=== PATIENT | male | born 1975 | race Caucasian/White ===

== ENCOUNTER 2016-10-07 16:20 | Emergency (ER) | payer OTHER ==
[2016-10-07 16:42] VITALS: BP 137/79; PULSE 90; RESP 18; TEMP 99.2
[2016-10-07] MEDS ORDERED: PENICILLIN V POTASSIUM 250 MG TAB PO STA (16:52)
[2016-10-07] MEDS ORDERED: HYDROcodone/APAP 5-325MG 1 EACH TAB PO STA (16:52)
--- NOTE | 2016-10-07 16:56 | ED ---
ENT HPI - General Chief complaint: Dental/Oral Stated complaint: Dental Pain Time Seen by Provider: 10/07/16 16:46 Source: patient Mode of arrival: ambulatory Limitations: no limitations - History of Present Illness Initial comments: Patient is a 41-year-old male presenting to the emergency department with complaints of tooth pain to tooth #124 days. Patient states he has a history of a fractured tooth and was treated with ibuprofen and amoxicillin approximately 6 months ago and the pain went away and he didn't to the dentist. Patient states that the same tooth pain returned 4 days ago. Patient states he has tried Motrin 800 without relief. Patient states that pain is radiating up to his left ear. Denies chills, fevers, nausea, vomiting, shortness of breath, chest pain, abdominal pain. Patient denies trismus. MD complaint: tooth pain Severity scale (1-10): 8 Quality: sharp Consistency: constant Improves with: none Worsens with: eating Context- Dental: other (History of same) - Related Data Previous Rx's Medication Instructions Recorded Cephalexin [Keflex] 500 mg PO Q6HR #28 cap 10/07/16 HYDROcodone/APAP 5-325MG [[place] 1 tab PO Q4HR PRN #12 tab 10/07/16 5-325] Allergies Allergy/AdvReac Type Severity Reaction Status Date / Time No Known Allergies Allergy Verified 10/07/16 16:42 Review of Systems ROS Statement: Those systems with pertinent positive or pertinent negative responses have been documented in the HPI. ROS Other: All systems not noted in ROS Statement are negative. Past Medical History Past Medical History: No Reported History History of Any Multi-Drug Resistant Organisms: None Reported Past Surgical History: No Surgical Hx Reported Past Psychological History: No Psychological Hx Reported Smoking Status: Current every day smoker Past Alcohol Use History: Occasional Past Drug Use History: None Reported General Exam Limitations: no limitations General appearance: alert, in no apparent distress Head exam: Present: atraumatic, normocephalic, normal inspection Eye exam: Present: normal appearance, PERRL, EOMI. Absent: scleral icterus, conjunctival injection, periorbital swelling ENT exam: Present: normal exam, normal oropharynx, mucous membranes moist, TM's normal bilaterally, normal external ear exam Expanded Mouth exam: Present: normal external inspection, tongue normal. Absent: drooling, trismus Teeth exam: Present: fractured tooth # (12), dental tenderness # (12). Absent: gingival enlargement Throat exam: normal inspection. negative: tonsillar erythema, tonsillomegaly, tonsillar exudate, R peritonsillar mass, L peritonsillar mass Neck exam: Present: normal inspection, full ROM. Absent: tenderness, lymphadenopathy Respiratory exam: Present: normal lung sounds bilaterally. Absent: respiratory distress, wheezes, rales, rhonchi, stridor Cardiovascular Exam: Present: regular rate, normal rhythm, normal heart sounds. Absent: systolic murmur, diastolic murmur, rubs, gallop, clicks GI/Abdominal exam: Present: soft, normal bowel sounds Neurological exam: Present: alert, oriented X3, CN II-XII intact Psychiatric exam: Present: normal affect, normal mood Skin exam: Present: warm, dry, intact, normal color Course Vital Signs 10/07/16 16:40 Temperature 99.2 F Pulse Rate 90 Respiratory 18 Rate Blood Pressure 137/79 O2 Sat by Pulse 98 Oximetry Medical Decision Making - Medical Decision Making Dental pain to tooth #12 with a history of fractured tooth. No evidence of obvious abscess at this time. Patient placed on antibiotics and given pain medicine. Patient instructed to follow-up with dentist. Patient agrees with treatment plan. Return parameters discharge instructions reviewed. Disposition Clinical Impression: Fracture of tooth, Toothache Disposition: HOME SELF-CARE Condition: Good Instructions: Toothache (ED) Additional Instructions: Finish antibiotics as prescribed. Continue Motrin and [place] for moderate to severe pain. May apply warm compresses for comfort. Follow-up with dentist upon returning to [place]. Please return to the emergency department if symptoms do not improve or get worse. Prescriptions: Cephalexin [Keflex] 500 mg PO Q6HR #28 cap HYDROcodone/APAP 5-325MG [[place] 5-325] 1 tab PO Q4HR PRN #12 tab PRN Reason: Pain Referrals: None,Stated [Primary Care Provider] - 1-2 days Time of Disposition: 16:55
== END 2016-10-07 17:15 | disposition home or self-care (01) ==
LOC: EC 16:20
DX: S02.5XXA Fracture of tooth (traumatic), initial encounter for closed fracture (principal); K08.89 Other specified disorders of teeth and supporting structures; F17.200 Nicotine dependence, unspecified, uncomplicated
CPT/HCPCS: 99282

== ENCOUNTER 2017-02-08 08:51 | Emergency (ER) | payer OTHER ==
[2017-02-08 09:04] VITALS: BP 117/90; PULSE 68; RESP 20; TEMP 99.5
[2017-02-08] MEDS ORDERED: KETOROLAC 60 MG/2 ML VIAL IM STA (09:15)
[2017-02-08] MEDS ORDERED: DIAZEPAM 5 MG TAB PO STA (09:15)
--- NOTE | 2017-02-08 09:20 | ED ---
General Adult HPI - General Chief complaint: Extremity Problem,Nontraumatic Stated complaint: back pain, poss sciatica Time Seen by Provider: 02/08/17 09:06 Source: patient, RN notes reviewed Mode of arrival: ambulatory Limitations: no limitations - History of Present Illness Initial comments: Patient is a 41-year-old male who presents emergency room today with a chief complaint of increased sciatic pain. He does admit that he's had similar symptoms in the past. He denies any injury or trauma. States his symptoms started yesterday morning when awakening. Does admit to a physical job but denies any injury or trauma. Patient does admit to pain that radiates down both right and left leg all the way down to his feet. He denies any bowel or bladder incontinence retention. Denies any saddle anesthesia. Patient does admit that he's had this pain in the past is had x-rays. States new to this area recently moved here from [place]. States he is trying follow-up with family doctor. Patient denies any recent fever, chills, shortness of breath, chest pain, abdominal pain, nausea or vomiting, dysuria or hematuria, constipation or diarrhea, headaches or visual changes, or any other complaints. - Related Data Previous Rx's Medication Instructions Recorded Cephalexin [Keflex] 500 mg PO Q6HR #28 cap 10/07/16 HYDROcodone/APAP 5-325MG [[place] 1 tab PO Q4HR PRN #12 tab 10/07/16 5-325] Cyclobenzaprine [Flexeril] 10 mg PO TID #20 tab 02/08/17 Dexamethasone 0.75 mg PO DIRECTED #12 tablet 02/08/17 Ibuprofen [Motrin] 800 mg PO Q8HR #30 tab 02/08/17 Allergies Allergy/AdvReac Type Severity Reaction Status Date / Time No Known Allergies Allergy Verified 10/07/16 16:42 Review of Systems ROS Statement: Those systems with pertinent positive or pertinent negative responses have been documented in the HPI. ROS Other: All systems not noted in ROS Statement are negative. Past Medical History Past Medical History: No Reported History Additional Past Medical History / Comment(s): sciatic nerve problem. back injury History of Any Multi-Drug Resistant Organisms: None Reported Past Surgical History: No Surgical Hx Reported Past Psychological History: No Psychological Hx Reported Smoking Status: Current every day smoker Past Alcohol Use History: Occasional Past Drug Use History: None Reported General Exam - General Exam Comments Initial Comments: General: The patient is awake and alert, in no distress, and does not appear acutely ill. Eye: Pupils are equal, round and reactive to light, extra-ocular movements are intact. No nystagmus. There is normal conjunctiva bilaterally. No signs of icterus. Ears, nose, mouth and throat: There are moist mucous membranes and no oral lesions. Neck: The neck is supple, there is no tenderness or JVD. Cardiovascular: There is a regular rate and rhythm. No murmur, rub or gallop is appreciated. Respiratory: Lungs are clear to auscultation, respirations are non-labored, breath sounds are equal. No wheezes, stridor, rales, or rhonchi. Gastrointestinal: Soft, non-distended, non-tender abdomen without masses or organomegaly noted. There is no rebound or guarding present. No CVA tenderness. Bowel sounds are unremarkable. Musculoskeletal: Full range of motion. Patient does have normal appearance thoracic or lumbar spine no step-offs forms appreciated. No tenderness midline. Mild tenderness over the SI joints bilaterally and paravertebrally in the lower lumbar spine. Strength 5/5. Sensation intact. Pulses equal bilaterally 2+. Neurological: A&O x 3. CN II-XII intact, There are no obvious motor or sensory deficits. Coordination appears grossly intact. Speech is normal. Skin: Skin is warm and dry and no rashes or lesions are noted. Psychiatric: Cooperative, appropriate mood & affect, normal judgment. Limitations: no limitations Course Vital Signs 02/08/17 09:02 Temperature 99.5 F Pulse Rate 68 Respiratory 20 Rate Blood Pressure 117/90 O2 Sat by Pulse 100 Oximetry Medical Decision Making - Medical Decision Making 41-year-old male presenting for bilateral sciatic pain. Importance of following up and having MRI were discussed with the patient. He has no bowel or bladder incontinence retention. He has no saddle anesthesia. Sinus symptoms of concern and for reason of return were discussed with patient. He' ll be started on anti-inflammatories given Toradol shot here in the emergency room also given Valium for muscle spasms. Patient will be discharged on continued muscle relaxer along with anti-inflammatories, and steroid Dosepak for his symptoms. Advised close follow-up family doctor over the next 2 days or return here to the emergency room if any symptoms increase or worsen or for any other concerns. Disposition Clinical Impression: Lumbar radiculopathy, acute Disposition: HOME SELF-CARE Condition: Good Instructions: Lumbar Radiculopathy (ED) Additional Instructions: Please follow-up the family doctor and discuss options of MRI. Please use medications as prescribed and be aware that muscle relaxant may make you drowsy. Please return to emergency room if any symptoms increase or worsen or for any other concerns. Prescriptions: Cyclobenzaprine [Flexeril] 10 mg PO TID #20 tab Dexamethasone 0.75 mg PO DIRECTED #12 tablet Ibuprofen [Motrin] 800 mg PO Q8HR #30 tab Referrals: None,Stated [Primary Care Provider] - 1-2 days Anisa Rodriguez MD [STAFF PHYSICIAN] - 1-2 days Kahlil Westbrook MD [REFERRING] - 1-2 days Time of Disposition: 09:18
== END 2017-02-08 09:39 | disposition home or self-care (01) ==
LOC: EC 08:51
DX: M54.16 Radiculopathy, lumbar region (principal); F17.200 Nicotine dependence, unspecified, uncomplicated
CPT/HCPCS: 99283; 96372; J1885

== ENCOUNTER → 2017-05-30 | Outpatient (CLI) | payer OTHER ==
--- NOTE | 2017-05-30 14:35 | XR ---
EXAMINATION TYPE: XR knee complete RT DATE OF EXAM: 05/30/2017 CLINICAL HISTORY: Pain and swelling from old injury. TECHNIQUE: Three views of the right knee are obtained on 4 images. COMPARISON: None. FINDINGS: There is no acute fracture/dislocation evident in right knee. Well-corticated defect is pr esent presumed from prior ACL surgical repair. Mild joint space loss medial and lateral tibiofemoral compartments is seen. No significant spurring is present. The overlying soft tissue appears unremark able. IMPRESSION: There is postsurgical change and mild degenerative changes as noted above.
== END | disposition home or self-care (01) ==
LOC: RADXRMAIN 13:34
PROVIDERS: ATTEND Internal Medicine
DX: M25.861 Other specified joint disorders, right knee (principal); M25.561 Pain in right knee

== ENCOUNTER 2017-12-29 06:13 | Emergency (ER) | payer OTHER ==
[2017-12-29 06:18] VITALS: BP 132/85; PULSE 60; RESP 18; TEMP 98.1
[2017-12-29] MEDS ORDERED: KETOROLAC 60 MG/2 ML VIAL IM STA (06:20)
--- NOTE | 2017-12-29 06:22 | ED ---
General Adult HPI - General Chief complaint: Fall Stated complaint: Fall Time Seen by Provider: 12/29/17 06:15 Source: EMS, RN notes reviewed Mode of arrival: EMS Limitations: no limitations - History of Present Illness Initial comments: This is a 42-year-old male who presents in status to the emergency department complaining of left-sided rib pain. Patient states she got up and walked outside and slipped on the ice and fell onto the cement on the left side of his ribs. Patient denies any difficulty breathing or shortness of breath. Patient states it hurts take a deep breath however and hurts to touch or move his thorax. Patient denies any head injury patient denies any neck pain patient denies any numbness weakness. Patient denies any back pain. Patient denies any extremity injury. Patient denies any other pain at this time. His any cut or abrasion. - Related Data Previous Rx's Medication Instructions Recorded Cyclobenzaprine [Flexeril] 10 mg PO TID #20 tab 02/08/17 Dexamethasone 0.75 mg PO DIRECTED #12 tablet 02/08/17 Ibuprofen [Motrin] 800 mg PO Q8HR #30 tab 02/08/17 Njvb-Sjjt-Vtb 6.25-5-10Mg/5Ml 5 ml PO TID #100 ml 06/10/17 [Phenergan VC with Codeine] methylPREDNISolone Dose Pack 4 mg PO DIRECTED #21 package 06/10/17 [Medrol Dose Pack] Hydrocodone/Acetaminophen [[place] 1 each PO Q4HR PRN #10 tab 12/29/17 5-325] Ibuprofen [Motrin] 600 mg PO Q6HR PRN #20 tab 12/29/17 Allergies Allergy/AdvReac Type Severity Reaction Status Date / Time No Known Allergies Allergy Verified 12/29/17 06:18 Review of Systems ROS Statement: Those systems with pertinent positive or pertinent negative responses have been documented in the HPI. ROS Other: All systems not noted in ROS Statement are negative. Past Medical History Past Medical History: No Reported History Additional Past Medical History / Comment(s): sciatic nerve problem. back injury History of Any Multi-Drug Resistant Organisms: None Reported Past Surgical History: No Surgical Hx Reported Past Psychological History: PTSD Smoking Status: Current every day smoker Past Alcohol Use History: Occasional Past Drug Use History: Marijuana General Exam - General Exam Comments Initial Comments: GENERAL: Patient is well-developed and well-nourished. Patient is nontoxic and well- hydrated and is in mild distress. ENT: Neck is soft and supple. No significant lymphadenopathy is noted. Oropharynx is clear. Moist mucous membranes. Neck has full range of motion without eliciting any pain. EYES: The sclera were anicteric and conjunctiva were pink and moist. Extraocular movements were intact and pupils were equal round and reactive to light. Eyelids were unremarkable. PULMONARY: Unlabored respirations. Good breath sounds bilaterally. No audible rales rhonchi or wheezing was noted. CARDIOVASCULAR: There is a regular rate and rhythm without any murmurs gallops or rubs. Patient has left lateral rib pain. ABDOMEN: Soft and nontender with normal bowel sounds. SKIN: Skin is clear with no lesions or rashes and otherwise unremarkable. NEUROLOGIC: Patient is alert and oriented x3. Cranial nerves II through XII are grossly intact. Motor and sensory are also intact. Normal speech, volume and content. Symmetrical smile. MUSCULOSKELETAL: Normal extremities with adequate strength and full range of motion. LYMPHATICS: No significant lymphadenopathy is noted PSYCHIATRIC: Normal psychiatric evaluation. Limitations: no limitations Course Vital Signs 12/29/17 06:14 Temperature 98.1 F Pulse Rate 60 Respiratory 18 Rate Blood Pressure 132/85 O2 Sat by Pulse 100 Oximetry Medical Decision Making - Medical Decision Making Chest x-ray shows no acute abnormality. Disposition Clinical Impression: Chest wall contusion Disposition: HOME SELF-CARE Instructions: Contusion in Adults (ED) Prescriptions: Hydrocodone/Acetaminophen [[place] 5-325] 1 each PO Q4HR PRN #10 tab PRN Reason: Pain Ibuprofen [Motrin] 600 mg PO Q6HR PRN #20 tab PRN Reason: For pain Referrals: Kahlil Westbrook MD [Primary Care Provider] - 1-2 days Time of Disposition: 06:54
--- NOTE | 2017-12-29 06:47 | XR ---
EXAMINATION TYPE: XR chest 2V DATE OF EXAM: 12/29/2017 HISTORY: Difficulty breathing . REFERENCE: Previous study dated 06/10/2017. FINDINGS: The lungs remain clear. Pleural spaces are clear. The heart is not enlarged. IMPRESSION: NORMAL CHEST.
== END 2017-12-29 07:01 | disposition home or self-care (01) ==
LOC: EC 06:13
DX: S20.212A Contusion of left front wall of thorax, initial encounter (principal); F17.200 Nicotine dependence, unspecified, uncomplicated; W00.0XXA Fall on same level due to ice and snow, initial encounter; Y92.009 Unspecified place in unspecified non-institutional (private) residence as the place of occurrence of the external cause
CPT/HCPCS: 71046; 99283; J1885

== ENCOUNTER 2017-12-30 16:59 | Emergency (ER) | payer OTHER ==
[2017-12-30 18:12] VITALS: BP 128/84; PULSE 53; RESP 18; TEMP 98.5
--- NOTE | 2017-12-30 18:29 | ED ---
General Adult HPI - General Chief complaint: Extremity Injury, Upper Stated complaint: Rib and chest pain fell yesterday Time Seen by Provider: 12/30/17 18:15 Source: patient, RN notes reviewed Mode of arrival: ambulatory Limitations: no limitations - History of Present Illness Initial comments: Patient 42-year-old male presenting to the emergency room today with a chief complaint of a subtle rib pain. He does admit to a slow fall yesterday. He states he fell down onto a step" underneath the left side of his chest. Patient states locally tender this area worse with certain movements. He doesn' t that he's had some cough some congestion as well. Patient states was seen here in the hospital yesterday had an x-ray and was told nothing was broken. Patient states he was given [place] for pain which she has been using with little relief the symptoms. Denies any complaints or associated symptoms at this time. - Related Data Previous Rx's Medication Instructions Recorded Cyclobenzaprine [Flexeril] 10 mg PO TID #20 tab 02/08/17 Dexamethasone 0.75 mg PO DIRECTED #12 tablet 02/08/17 Ibuprofen [Motrin] 800 mg PO Q8HR #30 tab 02/08/17 Euev-Hnsl-Isr 6.25-5-10Mg/5Ml 5 ml PO TID #100 ml 06/10/17 [Phenergan VC with Codeine] methylPREDNISolone Dose Pack 4 mg PO DIRECTED #21 package 06/10/17 [Medrol Dose Pack] Hydrocodone/Acetaminophen [[place] 1 each PO Q4HR PRN #10 tab 12/29/17 5-325] Ibuprofen [Motrin] 600 mg PO Q6HR PRN #20 tab 12/29/17 Benzonatate [Tessalon Perles] 100 mg PO TID PRN #20 capsule 12/30/17 traMADol HCl [Ultram] 1 tab PO Q4-6H PRN #15 tab 12/30/17 Allergies Allergy/AdvReac Type Severity Reaction Status Date / Time No Known Allergies Allergy Verified 12/30/17 18:12 Review of Systems ROS Statement: Those systems with pertinent positive or pertinent negative responses have been documented in the HPI. ROS Other: All systems not noted in ROS Statement are negative. Past Medical History Past Medical History: No Reported History Additional Past Medical History / Comment(s): sciatic nerve problem. back injury History of Any Multi-Drug Resistant Organisms: None Reported Past Surgical History: No Surgical Hx Reported Past Psychological History: PTSD Smoking Status: Current every day smoker Past Alcohol Use History: Occasional Past Drug Use History: Marijuana General Exam - General Exam Comments Initial Comments: General: The patient is awake and alert, in no distress, and does not appear acutely ill. Eye: Pupils are equal, round and reactive to light, extra-ocular movements are intact. No nystagmus. There is normal conjunctiva bilaterally. No signs of icterus. Ears, nose, mouth and throat: There are moist mucous membranes and no oral lesions. Neck: The neck is supple, there is no tenderness or JVD. Cardiovascular: There is a regular rate and rhythm. No murmur, rub or gallop is appreciated. Patient's pain is reproduced on palpation to the left lateral lower ribs. Respiratory: Lungs are clear to auscultation, respirations are non-labored, breath sounds are equal. No wheezes, stridor, rales, or rhonchi. Musculoskeletal: Patient does have chest wall tenderness to the left side. Tender to palpation over the left anterior lateral ribs. 5/5. Sensation intact. Pulses equal bilaterally 2+. Neurological: A&O x 3. CN II-XII intact, There are no obvious motor or sensory deficits. Coordination appears grossly intact. Speech is normal. Skin: Skin is warm and dry and no rashes or lesions are noted. Psychiatric: Cooperative, appropriate mood & affect, normal judgment. Limitations: no limitations Course Vital Signs 12/30/17 18:10 Temperature 98.5 F Pulse Rate 53 L Respiratory 18 Rate Blood Pressure 128/84 O2 Sat by Pulse 99 Oximetry Medical Decision Making - Medical Decision Making Patient's x-rays negative for any acute abnormality. Patient's pain is reproduced on palpation to the anterior lateral left lower ribs. No step-off or deformity. Patient does admit that he was given [place] yesterday she states is not helped much with his pain. He states crackles work better for him in the past. He'll be given a short prescription as well as continuous his anti- inflammatories and also be given cough medication. Disposition Clinical Impression: Contusion of rib on left side Disposition: HOME SELF-CARE Condition: Good Instructions: Rib Contusion (ED) Additional Instructions: Please use medication as discussed. Please follow-up with family doctor in the next 2 days of symptoms have not improved. Please return to emergency room if the symptoms increase or worsen or for any other concerns. Prescriptions: Benzonatate [Tessalon Perles] 100 mg PO TID PRN #20 capsule PRN Reason: Cough traMADol HCl [Ultram] 1 tab PO Q4-6H PRN #15 tab PRN Reason: Pain Is patient prescribed a controlled substance at discharge?: Yes If prescribed controlled substance>3 days was MAPS reviewed?: Yes When asked, does pt state using other controlled substances?: Yes Referrals: Kahlil Westbrook MD [Primary Care Provider] - 1-2 days Time of Disposition: 19:32
--- NOTE | 2017-12-30 19:29 | XR ---
PROCEDURE: XR ribs LT w pa chest xray, 5 views DATE AND TIME: 12/30/2017 6:29 PM REFERRING PHYSICIAN: Manuel Arguello CLINICAL INDICATION: PHH, Pain TECHNIQUE: Department protocol. COMPARISON: 12/29/2017 FINDINGS: There is no fracture or malalignment. No pneumothorax or pleural effusion. The soft tissues are unremarkable. IMPRESSION: NO ACUTE PROCESS.
== END 2017-12-30 19:43 | disposition home or self-care (01) ==
LOC: EC 16:59
DX: S20.212A Contusion of left front wall of thorax, initial encounter (principal); R05 Cough; R09.81 Nasal congestion; F17.200 Nicotine dependence, unspecified, uncomplicated; W10.9XXA Fall (on) (from) unspecified stairs and steps, initial encounter
CPT/HCPCS: 99283

== ENCOUNTER 2018-02-10 10:32 | Emergency (ER) | payer OTHER ==
[2018-02-10 10:35] VITALS: BP 154/82; PULSE 79; RESP 16; TEMP 98.2
[2018-02-10] MEDS ORDERED: KETOROLAC 60 MG/2 ML VIAL IM STA (11:23)
[2018-02-10] MEDS ORDERED: traMADol 50 MG TAB PO STA (11:23)
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
[2018-02-10] MEDS ORDERED: KETOROLAC 60 MG/2 ML VIAL ONE (12:10)
[2018-02-10] MEDS ORDERED: traMADol 50 MG TAB ONE (12:10)
== END 2018-02-10 13:01 | disposition home or self-care (01) ==
LOC: EC 10:32
DX: S20.212A Contusion of left front wall of thorax, initial encounter (principal); F17.200 Nicotine dependence, unspecified, uncomplicated; W21.11XA Struck by baseball bat, initial encounter
CPT/HCPCS: 71046; 99283

== ENCOUNTER 2018-08-21 19:38 | Emergency (ER) | payer OTHER ==
[2018-08-21 19:56] VITALS: BP 143/86; PULSE 77; RESP 18; TEMP 98.1
[2018-08-21] MEDS ORDERED: LIDOCAINE VISCOUS 2% 15 ML CUP MUCOUS MEM ONE ×2 (21:08→22:22)
--- NOTE | 2018-08-21 21:10 | ED ---
General Adult HPI - General Chief complaint: ENT Stated complaint: Sore throat Source: patient Mode of arrival: ambulatory Limitations: no limitations - History of Present Illness Initial comments: Dictation was produced using [employer] dictation software. please excuse any grammatical, word or spelling errors. Chief Complaint: 43-year-old male presents with a right-sided facial pain. History of Present Illness: 3-year-old male presents with facial pain. Patient states that he has pain in her oral he. States that he has pain when he pressed on the right maxilla. He feels there is a lesion intraorally above his right maxillary teeth. Patient also has mild sore throat. Denies any constitutional symptoms. The ROS documented in this emergency department record has been reviewed and confirmed by me. Those systems with pertinent positive or negative responses have been documented in the HPI. All other systems are other negative and/or noncontributory. - Related Data Previous Rx's Medication Instructions Recorded Lidocaine Viscous 2% [Xylocaine 15 ml MUCOUS MEM TID PRN #5 cup 08/21/18 Viscous] Allergies Allergy/AdvReac Type Severity Reaction Status Date / Time No Known Allergies Allergy Verified 08/21/18 20:17 Review of Systems ROS Statement: Those systems with pertinent positive or pertinent negative responses have been documented in the HPI. ROS Other: All systems not noted in ROS Statement are negative. Past Medical History Past Medical History: No Reported History Additional Past Medical History / Comment(s): sciatic nerve problem. back injury History of Any Multi-Drug Resistant Organisms: None Reported Past Surgical History: No Surgical Hx Reported Past Psychological History: PTSD Smoking Status: Current every day smoker Past Alcohol Use History: Occasional Past Drug Use History: Marijuana General Exam - General Exam Comments Initial Comments: PHYSICAL EXAM: General Impression: Alert and oriented x3, not in acute distress HEENT: Normocephalic atraumatic, extra-ocular movements intact, pupils equal and reactive to light bilaterally, mucous membranes moist, at this ulcer to the right buccal gingival junction, tenderness to palpation over this site with reproduction of his pain. Cardiovascular: Heart regular rate and rhythm, S1&S2 audible, no murmurs, rubs or gallops Chest: Lungs clear to auscultation bilaterally, no rhonchi, no wheeze, no rales Abdomen: Bowel sounds present, abdomen soft, non-tender, non-distended, no organomegaly Musculoskeletal: Pulses present and equal in all extremities, no peripheral edema Motor: Power 5/5 bilaterally, no focal deficits noted Neurological: CN II-XII grossly intact, no focal motor or sensory deficits noted Skin: Intact with no visualized rashes Psych: Normal affect and mood Limitations: no limitations Course Vital Signs 08/21/18 19:53 Temperature 98.1 F Pulse Rate 77 Respiratory 18 Rate Blood Pressure 143/86 O2 Sat by Pulse 100 Oximetry Medical Decision Making - Medical Decision Making ED course: 43-year-old male presents with symptomatic at this ulcer. As upon arrival are within acceptable limits. Patient's pain is reproduced by palpation of the buccal gingival ulcer. Patient given some lidocaine. Patient is reevaluated improvement of symptoms. Patient given prescription for mucus that came to apply to lesion when necessary pain. Patient to follow up with primary care physician. Influenza test is negative. Patient is understandable and agreeable to plan. - Lab Data Lab Results 08/21/18 Range/Units 21:46 Influenza Type A RNA Not Detected (Not Detectd) Influenza Type B (PCR) Not Detected (Not Detectd) Disposition Clinical Impression: Aphthous ulcer Disposition: HOME SELF-CARE Condition: Good Instructions: Canker Sores (ED) Prescriptions: Lidocaine Viscous 2% [Xylocaine Viscous] 15 ml MUCOUS MEM TID PRN #5 cup PRN Reason: Pain Is patient prescribed a controlled substance at d/c from ED?: No Referrals: None,Stated [Primary Care Provider] - 1-2 days Time of Disposition: 22:35
== END 2018-08-21 22:45 | disposition home or self-care (01) ==
LOC: EC 19:38
DX: K12.0 Recurrent oral aphthae (principal); R51 Headache; F17.200 Nicotine dependence, unspecified, uncomplicated
CPT/HCPCS: 87502; 99283

== ENCOUNTER 2018-09-26 11:40 | Emergency (ER) | payer OTHER ==
[2018-09-26 11:46] VITALS: RESP 18
[2018-09-26] MEDS ORDERED: SODIUM CHLORIDE 0.9% 500 ML 500 ML IV STA (12:12)
[2018-09-26] MEDS ORDERED: SODIUM CHLORIDE 0.9% 1,000 ML IV STA (12:12)
[2018-09-26] MEDS ORDERED: MORPHINE SULFATE 2 MG/ML SYRINGE IVP STA (12:12)
[2018-09-26] MEDS ORDERED: ONDANSETRON 4 MG/2 ML VIAL IVP STA (12:12)
--- NOTE | 2018-09-26 12:19 | ED ---
General Adult HPI - General Chief complaint: Nausea/Vomiting/Diarrhea Stated complaint: DIARRHEA,ABDOMINAL PAIN Source: patient, RN notes reviewed, old records reviewed Mode of arrival: wheelchair Limitations: no limitations - History of Present Illness Initial comments: 43-year-old male patient with pmhx of hepatitis c presents to ED with 1 day of abdominal pain nausea, diarrhea. Patient states he woke up this morning and had pain as right lower quadrant, suprapubic abdominal region. Patient states that he has had watery diarrhea approximately 6-8 times this am. Patient complains of pain in his right lower quadrant, suprapubic region, patient states that he is unable to get comfortable. Patient has had nausea without emesis. Patient denies other complaints. Patient denies fever chills, chest pain, shortness of breath. Sensation states that his urination is at baseline. Patient denies previous abdominal surgeries. Systemic: Pt denies fatigue, myalgia, fever/chills, rash. Pt denies weakness, night sweats, weight loss. Neuro: Pt denies headache, visual disturbances, syncope or pre-syncope. HEENT: Pt denies ocular discharge or irritation, otalgia, rhinorrhea, pharyngitis or notable lymphadenopathy. Cardiopulmonary: Pt denies chest pain, SOB, heart palpitations, dyspnea on exertion. Abdominal/GI: Pt denies emesis. : Pt denies dysuria, burning w/ urination, frequency/urgency. Denies new onset urinary or bowel incontinence. MSK: Pt denies myalgia, loss of strength or function in extremities. Neuro: Pt denies new onset weakness, paresthesias. - Related Data Previous Rx's Medication Instructions Recorded Ondansetron Odt [Zofran ODT] 4 mg PO Q8HR PRN #20 tab 09/26/18 Allergies Allergy/AdvReac Type Severity Reaction Status Date / Time No Known Allergies Allergy Verified 09/26/18 12:19 Review of Systems ROS Statement: Those systems with pertinent positive or pertinent negative responses have been documented in the HPI. ROS Other: All systems not noted in ROS Statement are negative. Past Medical History Past Medical History: No Reported History Additional Past Medical History / Comment(s): sciatic nerve problem. back injury History of Any Multi-Drug Resistant Organisms: None Reported Past Surgical History: No Surgical Hx Reported Past Psychological History: PTSD Smoking Status: Current every day smoker Past Alcohol Use History: Occasional Past Drug Use History: Marijuana General Exam - General Exam Comments Initial Comments: Constitutional: NAD, AOX3. HEENT: NC/AT, trachea midline, neck supple, no lymphadenopathy. Posterior pharynx non erythematous, without exudates. External ears appear normal, without discharge. Mucous membranes moist. Eyes PERRLA, EOM intact. There is no scleral icterus. No pallor noted. Cardiopulmonary: RRR, no murmurs, rubs or gallops, no JVD noted. Lungs CTAB in anterior and posterior malcolm. No peripheral edema. Abdominal exam: Abdomen soft and non-distended. Abdomen mildly ttp in RLQ and suprapubic region. Tender at [place] point. Rosvings sign negative. [place] sign negative. Bowel sounds active in LLQ. No hepatosplenomegaly. No ecchymosis Neuro: CN II-XII grossly intact. No nuchal rigidity. MSK: No posterior calf tenderness bilaterally, homans sign negative bilaterally. Posterior tibialis and radial pulse +2 bilaterally. Sensation intact in upper and lower extremities. Full active ROM in upper and lower extremities, 5/5 strength. Limitations: no limitations Course Vital Signs 09/26/18 11:43 Temperature 98.1 F Pulse Rate 60 Respiratory 18 Rate Blood Pressure 145/96 O2 Sat by Pulse 100 Oximetry Medical Decision Making - Medical Decision Making 43-year-old male patient with no pertinent past history presents to ED with 1 day of abdominal pain nausea, diarrhea. Patient states he woke up this morning and had pain as right lower quadrant, suprapubic abdominal region. Patient states that he has had watery diarrhea approximately 6-8 times this am. Patient complains of pain in his right lower quadrant, suprapubic region, patient states that he is unable to get comfortable. Patient has had nausea without emesis. Pt VSS, afebrile. Physical exam displayed: Abdomen soft and non- distended. Abdomen mildly ttp in RLQ and suprapubic region. Tender at [place] point. Rosvings sign negative. Bowel sounds active in LLQ. No hepatosplenomegaly. No ecchymosis. Laboratory investigations revealed non- impressive CBC. CMP revealed slight elevation in AST, ALT, likely secondary to patient's chronic hepatitis C. UA did not display any acute pathology. CT abdomen and pelvis with contrast displayed mildly distended gallbladder. Patient does not have any right upper quadrant pain, [place] sign negative. Gallbladder ultrasound did not display any sonographic evidence of cholelithiasis or acute cholecystitis. Patient improved with IV fluids, Zofran , analgesic. Patient diagnosed with viral gastroenteritis. Patient to follow up with primary care provider in 1-2 days. Patient to continue supportive treatment, encourage by mouth intake. Patient to return to ED if new signs or symptoms develop, worsening abdominal pain, or if condition worsens in any way. Pt not driving home. Case discussed in depth with Dr. Viera. - Lab Data Result diagrams: 09/26/18 12:13 09/26/18 12:13 Lab Results 09/26/18 09/26/18 09/26/18 Range/Units 12:13 12:13 12:13 WBC 8.1 (3.8-10.6) k/uL RBC 5.06 (4.30-5.90) m/uL Hgb 17.3 (13.0-17.5) gm/dL Hct 50.6 (39.0-53.0) % MCV 99.9 (80.0-100.0) fL MCH 34.1 (25.0-35.0) pg MCHC 34.1 (31.0-37.0) g/dL RDW 12.4 (11.5-15.5) % Plt Count 184 (150-450) k/uL Neutrophils % 78 % Lymphocytes % 16 % Monocytes % 4 % Eosinophils % 2 % Basophils % 0 % Neutrophils # 6.4 (1.3-7.7) k/uL Lymphocytes # 1.3 (1.0-4.8) k/uL Monocytes # 0.3 (0-1.0) k/uL Eosinophils # 0.1 (0-0.7) k/uL Basophils # 0.0 (0-0.2) k/uL Sodium 140 (137-145) mmol/L Potassium 4.5 (3.5-5.1) mmol/L Chloride 106 (98-107) mmol/L Carbon Dioxide 24 (22-30) mmol/L Anion Gap 10 mmol/L BUN 10 (9-20) mg/dL Creatinine 0.89 (0.66-1.25) mg/dL Est GFR (CKD-EPI)AfAm >90 (>60 ml/min/1.73 sqM) Est GFR (CKD-EPI)NonAf >90 (>60 ml/min/1.73 sqM) Glucose 107 H (74-99) mg/dL Plasma Lactic Acid Yvon 1.2 (0.7-2.0) mmol/L Calcium 9.3 (8.4-10.2) mg/dL Total Bilirubin 0.8 (0.2-1.3) mg/dL AST 63 H (17-59) U/L ALT 80 H (21-72) U/L Alkaline Phosphatase 105 (38-126) U/L Total Protein 8.4 H (6.3-8.2) g/dL Albumin 4.7 (3.5-5.0) g/dL Amylase 57 (30-110) U/L Lipase 39 (23-300) U/L Urine Color Urine Appearance (Clear) Urine pH (5.0-8.0) Ur Specific [place] (1.001-1.035) Urine Protein (Negative) Urine Glucose (UA) (Negative) Urine Ketones (Negative) Urine Blood (Negative) Urine Nitrite (Negative) Urine Bilirubin (Negative) Urine Urobilinogen (<2.0) mg/dL Ur Leukocyte Esterase (Negative) 09/26/18 Range/Units 13:30 WBC (3.8-10.6) k/uL RBC (4.30-5.90) m/uL Hgb (13.0-17.5) gm/dL Hct (39.0-53.0) % MCV (80.0-100.0) fL MCH (25.0-35.0) pg MCHC (31.0-37.0) g/dL RDW (11.5-15.5) % Plt Count (150-450) k/uL Neutrophils % % Lymphocytes % % Monocytes % % Eosinophils % % Basophils % % Neutrophils # (1.3-7.7) k/uL Lymphocytes # (1.0-4.8) k/uL Monocytes # (0-1.0) k/uL Eosinophils # (0-0.7) k/uL Basophils # (0-0.2) k/uL Sodium (137-145) mmol/L Potassium (3.5-5.1) mmol/L Chloride (98-107) mmol/L Carbon Dioxide (22-30) mmol/L Anion Gap mmol/L BUN (9-20) mg/dL Creatinine (0.66-1.25) mg/dL Est GFR (CKD-EPI)AfAm (>60 ml/min/1.73 sqM) Est GFR (CKD-EPI)NonAf (>60 ml/min/1.73 sqM) Glucose (74-99) mg/dL Plasma Lactic Acid Yvon (0.7-2.0) mmol/L Calcium (8.4-10.2) mg/dL Total Bilirubin (0.2-1.3) mg/dL AST (17-59) U/L ALT (21-72) U/L Alkaline Phosphatase (38-126) U/L Total Protein (6.3-8.2) g/dL Albumin (3.5-5.0) g/dL Amylase (30-110) U/L Lipase (23-300) U/L Urine Color Yellow Urine Appearance Clear (Clear) Urine pH 5.5 (5.0-8.0) Ur Specific [place] 1.015 (1.001-1.035) Urine Protein Trace H (Negative) Urine Glucose (UA) Negative (Negative) Urine Ketones Negative (Negative) Urine Blood Negative (Negative) Urine Nitrite Negative (Negative) Urine Bilirubin Negative (Negative) Urine Urobilinogen <2.0 (<2.0) mg/dL Ur Leukocyte Esterase Negative (Negative) Disposition Clinical Impression: Viral gastroenteritis Disposition: HOME SELF-CARE Condition: Good Instructions: Acute Nausea and Vomiting (ED), Acute Diarrhea (ED) Additional Instructions: Patient to adhere to previously discussed treatment plan and will take medication(s) as directed. Patient to follow up with PCP in 1-2 days. Patient to return to ED if symptoms do not improve. Prescriptions: Ondansetron Odt [Zofran ODT] 4 mg PO Q8HR PRN #20 tab PRN Reason: Nausea Is patient prescribed a controlled substance at d/c from ED?: No Referrals: None,Stated [Primary Care Provider] - 1-2 days Time of Disposition: 16:21
[2018-09-26 12:44] LABS: Basophils % (A) 0 %; Eosinophils # (A) 0.1 k/uL (0-0.7); Eosinophils % (A) 2 %; HCT 50.6 % (39.0-53.0); HGB 17.3 gm/dL (13.0-17.5); Lymphocytes # (A) 1.3 k/uL (1.0-4.8); Lymphocytes % (A) 16 %; MCH 34.1 pg (25.0-35.0); MCHC 34.1 g/dL (31.0-37.0); MCV 99.9 fL (80.0-100.0); Mean Platelet Volume 8.6; Monocytes # (A) 0.3 k/uL (0-1.0); Monocytes % (A) 4 %; Neutrophils # (A) 6.4 k/uL (1.3-7.7); Neutrophils % (A) 78 %; Platelet Count 184 k/uL (150-450); RBC 5.06 m/uL (4.30-5.90); RDW 12.4 % (11.5-15.5); WBC 8.1 k/uL (3.8-10.6)
[2018-09-26 13:04] LABS: ALT 80 U/L (21-72); AST 63 U/L (17-59); Albumin 4.7 g/dL (3.5-5.0); Alkaline Phosphatase 105 U/L (38-126); Amylase 57 U/L (30-110); Anion Gap 10 mmol/L; Blood Urea Nitrogen 10 mg/dL (9-20); Calcium 9.3 mg/dL (8.4-10.2); Carbon Dioxide 24 mmol/L (22-30); Chloride 106 mmol/L (98-107); Glucose 107 mg/dL (74-99); Lipase 39 U/L (23-300); Potassium 4.5 mmol/L (3.5-5.1); Sodium 140 mmol/L (137-145); Total Bilirubin 0.8 mg/dL (0.2-1.3); Total Protein 8.4 g/dL (6.3-8.2)
[2018-09-26 13:45] LABS: Appearance,Urine Clear (Clear); Bilirubin,Urine Negative (Negative); Blood,Urine Negative (Negative); Color,Urine Yellow; Glucose,Urine (UA) Negative (Negative); Ketones,Urine Negative (Negative); Leukocyte Esterase,Urine Negative (Negative); Nitrite,Urine Negative (Negative); PH, Urine 5.5 (5.0-8.0); Protein,Urine Trace (Negative); Specific Gravity,Urine 1.015 (1.001-1.035); Urobilinogen,Urine <2.0 mg/dL (<2.0)
--- NOTE | 2018-09-26 14:34 | CT ---
EXAMINATION TYPE: CT abdomen pelvis w con DATE OF EXAM: 09/26/2018 COMPARISON: None HISTORY: Abdomen pain CT DLP: 714.6 mGycm Automated exposure control for dose reduction was used. CONTRAST: CT scan of the abdomen pelvis is performed with IV Contrast, patient injected with 100 mL of Isovue 3 00. FINDINGS- LUNG BASES-linear changes involving the left lung base most typical scar or atelectasis.. LIVER/GB-gallbladder mildly distended but no definite gallstones.. PANCREAS- No gross abnormality is seen. SPLEEN- No gross abnormality is seen. ADRENALS- No gross abnormality is seen. KIDNEYS/BLADDER- no hydronephrosis nephrolithiasis or renal mass. BOWEL- no bowel dilatation. Normal appendix. LYMPH NODES- No greater than 1cm abdominal or pelvic lymph nodes areappreciated. OSSEOUS STRUCTURES- No significant abnormality is seen. OTHER- no free fluid. No free air. IMPRESSION- 1. Gallbladder is mildly distended without evidence of gallstone. Correlate clinically..
--- NOTE | 2018-09-26 15:38 | US ---
EXAMINATION TYPE: US gallbladder DATE OF EXAM: 09/26/2018 COMPARISON: CT today CLINICAL HISTORY: Pain. EC patient with paraumbilical pain today, nausea, diarrhea. EXAM MEASUREMENTS: Liver Length: 16.4 cm Gallbladder Wall: 0.2 cm CBD: 0.4 cm Right Kidney: 9.9 x 6.2 x 4.0 cm Pancreas: wnl Liver: wnl Gallbladder: wnl; size is wnl Evidence for sonographic Okeefe's sign: no CBD: wnl Right Kidney: wnl IMPRESSION: No sonographic evidence of cholelithiasis nor acute cholecystitis.
[2018-09-26 16:47] VITALS: BP 131/92; PULSE 59; TEMP 98.5
== END 2018-09-26 16:47 | disposition home or self-care (01) ==
LOC: EC 11:40
DX: A08.4 Viral intestinal infection, unspecified (principal); R74.8 Abnormal levels of other serum enzymes; K82.8 Other specified diseases of gallbladder; B18.2 Chronic viral hepatitis C; F17.200 Nicotine dependence, unspecified, uncomplicated
CPT/HCPCS: 99284; 96374; 96375; 96361; 36415; 80053; 82150; 83605; 83690; 85025; 81003; 76705; 74177; J2405; J2270; Q9967

== ENCOUNTER 2018-10-20 16:38 | Emergency (ER) | payer OTHER ==
[2018-10-20] MEDS ORDERED: ACET/COD 240MG/24MG LIQ 10 ML SYRG PO ONE (18:34)
[2018-10-20] MEDS ORDERED: IPRATROPIUM-ALBUTEROL 3 ML NEB INHALATION STA (18:34)
[2018-10-20] MEDS ORDERED: ACETAMINOPHEN TAB 325 MG TAB PO STA (18:34)
[2018-10-20] MEDS ORDERED: IBUPROFEN 400 MG TAB PO STA (18:34)
[2018-10-20] MEDS ORDERED: DEXAMETHASONE SOD PHOSPHATE 10 MG/ML 1 ML VIAL IM STA (18:34)
--- NOTE | 2018-10-20 18:35 | ED ---
URI HPI - General Chief Complaint: Nausea/Vomiting/Diarrhea Stated Complaint: Congestion/headache Time Seen by Provider: 10/20/18 17:26 Source: patient, RN notes reviewed, old records reviewed Mode of arrival: ambulatory Limitations: no limitations - History of Present Illness Initial Comments: This is a 43-year-old male the ER for evaluation presents today for evaluation of runny nose and congestion. Increased cough. No significant medical history takes no medications. Tried [id number] medication without help. No significant fevers or chest pain. Recent travel history or known sick contacts , no recent hospitalizations. MD Complaint: fever, cough, rhinorrhea, nasal congestion -: week(s) Severity: moderate Severity scale (1-10): 4 Consistency: constant Improves With: OTC cold medicine Worsens With: nothing Associated Symptoms: fever, myalgias, rhinorrhea, nasal congestion Treatments Prior to Arrival: none - Related Data Home Medications Medication Instructions Recorded Confirmed Ibuprofen [Motrin] 400 mg PO Q6H 10/20/18 10/20/18 Previous Rx's Medication Instructions Recorded Albuterol Sulfate [Proair Hfa] 1 - 2 puff INHALATION Q4H PRN #1 10/20/18 inhaler Azithromycin [Zithromax Z-pack] 0 mg PO DIRECTED #1 pack 10/20/18 Loratadine-Pseudoeph 10-240 mg 1 each PO DAILY #7 tab 10/20/18 [Claritin-D 24 Hr] Allergies Allergy/AdvReac Type Severity Reaction Status Date / Time No Known Allergies Allergy Verified 10/20/18 19:22 Review of Systems ROS Statement: Those systems with pertinent positive or pertinent negative responses have been documented in the HPI. ROS Other: All systems not noted in ROS Statement are negative. Past Medical History Past Medical History: No Reported History Additional Past Medical History / Comment(s): sciatic nerve problem. back injury History of Any Multi-Drug Resistant Organisms: None Reported Past Surgical History: No Surgical Hx Reported Past Psychological History: PTSD Smoking Status: Current every day smoker Past Alcohol Use History: Occasional Past Drug Use History: Marijuana General Exam Limitations: no limitations General appearance: alert, in no apparent distress Head exam: Present: atraumatic, normocephalic, normal inspection Eye exam: Present: normal appearance, PERRL, EOMI. Absent: scleral icterus, conjunctival injection, periorbital swelling ENT exam: Present: normal exam, mucous membranes moist Neck exam: Present: normal inspection. Absent: tenderness, meningismus, lymphadenopathy Respiratory exam: Present: normal lung sounds bilaterally. Absent: respiratory distress, wheezes, rales, rhonchi, stridor Cardiovascular Exam: Present: regular rate, normal rhythm, normal heart sounds. Absent: systolic murmur, diastolic murmur, rubs, gallop, clicks GI/Abdominal exam: Present: soft, normal bowel sounds. Absent: distended, tenderness, guarding, rebound, rigid Extremities exam: Present: normal inspection, full ROM, normal capillary refill. Absent: tenderness, pedal edema, joint swelling, calf tenderness Back exam: Present: normal inspection Neurological exam: Present: alert, oriented X3, CN II-XII intact Psychiatric exam: Present: normal affect, normal mood Skin exam: Present: warm, dry, intact, normal color. Absent: rash Course Vital Signs 10/20/18 10/20/18 10/20/18 17:09 20:12 20:18 Temperature 98.2 F Pulse Rate 74 75 75 Respiratory 18 Rate Blood Pressure 111/74 O2 Sat by Pulse 99 Oximetry 10/20/18 20:35 Temperature 98.7 F Pulse Rate 88 Respiratory 20 Rate Blood Pressure 132/79 O2 Sat by Pulse 97 Oximetry Medical Decision Making - Medical Decision Making 43 male the ER for evaluation. Cough congestion and some shortness of breath. Acute bronchitis and sinusitis will be discharged on antibiotics - Lab Data Lab Results 10/20/18 Range/Units 18:35 Influenza Type A RNA Not Detected (Not Detectd) Influenza Type B (PCR) Not Detected (Not Detectd) - Radiology Data Radiology results: report reviewed (Chest x-rays negative for acute disease), image reviewed Disposition Clinical Impression: URI (upper respiratory infection), Sinusitis, Acute bronchitis Disposition: HOME SELF-CARE Condition: Good Instructions (If sedation given, give patient instructions): Sinusitis (ED), Acute Bronchitis (ED) Prescriptions: Albuterol Sulfate [Proair Hfa] 1 - 2 puff INHALATION Q4H PRN #1 inhaler PRN Reason: Shortness Of Breath Azithromycin [Zithromax Z-pack] 0 mg PO DIRECTED #1 pack Loratadine-Pseudoeph 10-240 mg [Claritin-D 24 Hr] 1 each PO DAILY #7 tab Is patient prescribed a controlled substance at d/c from ED?: No Referrals: None,Stated [Primary Care Provider] - 1-2 days
--- NOTE | 2018-10-20 19:20 | XR ---
EXAMINATION TYPE: XR chest 2V DATE OF EXAM: 10/20/2018 COMPARISON: Chest x-ray February 10, 2018 HISTORY: Cough and congestion with body aches. TECHNIQUE: Frontal and lateral views of the chest are obtained. FINDINGS: There is no focal air space opacity, pleural effusion, or pneumothorax seen. The cardiac silhouette size is within normal limits. The osseous structures are intact. IMPRESSION: No suspicious acute pulmonary process. No significant change from prior.
[2018-10-20 20:39] VITALS: BP 132/79; PULSE 88; RESP 20; TEMP 98.7
== END 2018-10-20 20:35 | disposition home or self-care (01) ==
LOC: EC 16:38
DX: J06.9 Acute upper respiratory infection, unspecified (principal); J32.9 Chronic sinusitis, unspecified; J40 Bronchitis, not specified as acute or chronic; R11.2 Nausea with vomiting, unspecified; R19.7 Diarrhea, unspecified; F17.200 Nicotine dependence, unspecified, uncomplicated; Z79.1 Long term (current) use of non-steroidal anti-inflammatories (NSAID)
CPT/HCPCS: 94640; 87502; 71046; 99285; 96372; J1100

== ENCOUNTER 2018-12-05 09:08 | Day surgery (SDC) | payer OTHER ==
[2018-12-01 14:52] VITALS: BMI 25.8
[~2018-12-05 09:08] MED LIST: LACTATED RINGERS 1,000 ML IV SCH; LIDOCAINE 1% 20 ML VIAL (10MG/ML) FOR IV START INTRADERMA PRN
[2018-12-05 10:00] VITALS: RESP 16; TEMP 98.5
[2018-12-05] MEDS ORDERED: PROPOFOL 10 MG/ML 20 ML VIAL IV ONE (10:56)
--- NOTE | 2018-12-05 11:05 | P.GSHP ---
History of Present Illness H&P Date: 12/05/18 Chief Complaint: Constipation This a 43-year-old male has had issues with constipation. Patient is today for colonoscopy. Past Medical History Past Medical History: No Reported History Additional Past Medical History / Comment(s): sciatic nerve problem. back injury. CHRONIC CONSTIPATION. ON ANTIBIOTICS FOR URI History of Any Multi-Drug Resistant Organisms: None Reported Past Surgical History: No Surgical Hx Reported Additional Past Anesthesia/Blood Transfusion Reaction / Comment(s): NO PRIOR SURGICAL PROCEDURES Smoking Status: Current every day smoker - Past Family History Mother Family Medical History: No Reported History Medications and Allergies Home Medications Medication Instructions Recorded Confirmed Type Docusate Sodium [Dok] 100 mg PO DAILY 12/01/18 12/05/18 History Fluticasone Nasal [place] [Flonase 2 spr EA NOSTRIL DAILY 12/01/18 12/05/18 History Nasal [place]] Ibuprofen [Motrin Ib] 200 - 600 mg PO Q4-6H PRN 12/01/18 12/05/18 History Loratadine [Claritin] 10 mg PO DAILY 12/01/18 12/05/18 History Marijuana INHALATION TID 12/05/18 History Allergies Allergy/AdvReac Type Severity Reaction Status Date / Time No Known Allergies Allergy Verified 12/05/18 09:54 Surgical - Exam Vital Signs Temp Pulse Resp BP Pulse Ox 98.5 F 64 16 123/79 99 12/05/18 09:51 12/05/18 09:51 12/05/18 09:51 12/05/18 09:51 12/05/18 09:51 - General well developed, well nourished, no distress - Eyes PERRL - ENT normal pinna - Neck no masses - Respiratory normal expansion - Cardiovascular Rhythm: regular - Abdomen Abdomen: soft, non tender Assessment and Plan Assessment: Constipation. We'll perform colonoscopy.
--- NOTE | 2018-12-05 11:27 | P.OP ---
Date of Procedure: 12/05/18 Preoperative Diagnosis: Constipation Postoperative Diagnosis: Constipation Procedure(s) Performed: Colonoscopy Anesthesia: MAC Surgeon: Reji Johnson Pathology: none sent Condition: stable Disposition: PACU Description of Procedure: PROCEDURE: The patient was placed on the endoscopy table in the lateral position. Digital rectal examination was performed which revealed no abnormalities. The prostate was symmetrical without nodules. Flexible colonoscope was then placed in the patient's anus and passed throughout the entire colon. The ileocecal valve was visualized. The cecum, ascending, transverse, descending and sigmoid colon were normal. The rectum was normal as well. There were no masses, polyps or diverticula noted in the entire colon. SUMMARY OF FINDINGS: Normal colonoscopy.
[2018-12-05 11:58] VITALS: BP 116/81; PULSE 60
== END 2018-12-05 12:19 | disposition home or self-care (01) ==
LOC: ORWHC2ENDO 09:08
PROVIDERS: ATTEND Surgery
DX: K59.09 Other constipation (principal); F17.200 Nicotine dependence, unspecified, uncomplicated; Z79.1 Long term (current) use of non-steroidal anti-inflammatories (NSAID); Z79.899 Other long term (current) drug therapy; Z79.51 Long term (current) use of inhaled steroids
CPT/HCPCS: 45378; J2704

== ENCOUNTER 2018-12-10 11:43 | Emergency (ER) | payer OTHER ==
[2018-12-10 12:16] VITALS: RESP 16
[2018-12-10] MEDS ORDERED: ACETAMINOPHEN TAB 500 MG TAB PO STA (12:45)
--- NOTE | 2018-12-10 12:50 | ED ---
ENT HPI - General Chief complaint: ENT Stated complaint: Poss Flu Time Seen by Provider: 12/10/18 12:23 Source: patient, RN notes reviewed Mode of arrival: ambulatory Limitations: no limitations - History of Present Illness Initial comments: 43-year-old male presents emergency Department with chief complaint of fever cough congestion bodyaches. Patient symptoms started yesterday. Patient son had similar symptoms 3 days ago. Patient denies any recent Tylenol, did take some Motrin. Patient denies any shortness breath or chest pain. He states he j ust aches head to toe. Patient states that his cough is productive at time. No history of COPD. - Related Data Home Medications Medication Instructions Recorded Confirmed Fluticasone Nasal [place] [Flonase 2 spr EA NOSTRIL DAILY 12/01/18 12/10/18 Nasal [place]] Ibuprofen [Motrin Ib] 200 - 600 mg PO Q4-6H PRN 12/01/18 12/10/18 Previous Rx's Medication Instructions Recorded Oseltamivir [Tamiflu] 75 mg PO Q12HR #10 cap 12/10/18 Allergies Allergy/AdvReac Type Severity Reaction Status Date / Time No Known Allergies Allergy Verified 12/10/18 13:12 Review of Systems ROS Statement: Those systems with pertinent positive or pertinent negative responses have been documented in the HPI. ROS Other: All systems not noted in ROS Statement are negative. Past Medical History Past Medical History: No Reported History Additional Past Medical History / Comment(s): sciatic nerve problem. back injury. CHRONIC CONSTIPATION History of Any Multi-Drug Resistant Organisms: None Reported Past Surgical History: No Surgical Hx Reported Additional Past Anesthesia/Blood Transfusion Reaction / Comment(s): NO PRIOR SURGICAL PROCEDURES Past Psychological History: PTSD Smoking Status: Current every day smoker Past Alcohol Use History: None Reported Past Drug Use History: Marijuana - Past Family History Mother Family Medical History: No Reported History General Exam Limitations: no limitations General appearance: alert, in no apparent distress Head exam: Present: atraumatic, normocephalic, normal inspection Eye exam: Present: normal appearance, PERRL, EOMI. Absent: scleral icterus, conjunctival injection, periorbital swelling ENT exam: Present: normal exam, normal oropharynx, mucous membranes moist Neck exam: Present: normal inspection, full ROM. Absent: tenderness, meningismus, lymphadenopathy Respiratory exam: Present: normal lung sounds bilaterally. Absent: respiratory distress, wheezes, rales, rhonchi, stridor Cardiovascular Exam: Present: regular rate, normal rhythm, normal heart sounds. Absent: systolic murmur, diastolic murmur, rubs, gallop, clicks Course Vital Signs 12/10/18 12:14 Temperature 99.9 F H Pulse Rate 62 Respiratory 16 Rate Blood Pressure 122/82 O2 Sat by Pulse 98 Oximetry Medical Decision Making - Medical Decision Making 43-year-old male presented emergency department for fever cough congestion body aches. Patient's influenza A positive. Chest x-ray unremarkable. Patient will continue Tylenol Motrin return parameters were discussed. - Lab Data Lab Results 12/10/18 Range/Units 12:55 Influenza Type A RNA Detected H (Not Detectd) Influenza Type B (PCR) Not Detected (Not Detectd) Disposition Clinical Impression: Influenza A Disposition: HOME SELF-CARE Condition: Stable Instructions (If sedation given, give patient instructions): Influenza (ED) Additional Instructions: Please return to the Emergency Department if symptoms worsen or any other concerns. Prescriptions: Oseltamivir [Tamiflu] 75 mg PO Q12HR #10 cap Is patient prescribed a controlled substance at d/c from ED?: No Referrals: Kahlil Westbrook MD [Primary Care Provider] - 1-2 days Time of Disposition: 13:38
--- NOTE | 2018-12-10 13:20 | XR ---
EXAMINATION TYPE: XR chest 2V DATE OF EXAM: 12/10/2018 COMPARISON: 10/20/2018 HISTORY: 43-year-old male with cough and pain TECHNIQUE: PA and lateral views FINDINGS: The cardiomediastinal silhouette, aorta, and pulmonary vasculature are within normal limits. Lungs an d pleural spaces are clear. IMPRESSION: No acute cardiopulmonary process.
[2018-12-10 14:38] VITALS: BP 127/82; PULSE 78; TEMP 99
== END 2018-12-10 14:37 | disposition home or self-care (01) ==
LOC: EC 11:43
DX: J10.1 Influenza due to other identified influenza virus with other respiratory manifestations (principal); F17.200 Nicotine dependence, unspecified, uncomplicated; Z79.51 Long term (current) use of inhaled steroids
CPT/HCPCS: 71046; 87502; 99283

== ENCOUNTER 2019-06-30 16:46 | Inpatient (IN) | payer OTHER ==
[2019-06-30] MEDS ORDERED: SODIUM CHLORIDE 0.9% 1,000 ML IV STA (17:42)
[2019-06-30] MEDS ORDERED: MORPHINE SULFATE 4 MG/ML SYRINGE IVP STA (17:42)
[2019-06-30] MEDS ORDERED: KETOROLAC 30 MG/ML 1 ML VIAL IVP STA (17:42)
[2019-06-30] MEDS ORDERED: ONDANSETRON 4 MG/2 ML VIAL IVP STA (17:42)
--- NOTE | 2019-06-30 17:44 | ED ---
Abdominal Pain HPI - General Chief Complaint: Abdominal Pain Stated Complaint: abdominal pain Time Seen by Provider: 06/30/19 17:27 Source: patient Mode of arrival: ambulatory Limitations: no limitations - History of Present Illness Initial Comments: Patient is a 44-year-old male presenting to emergency Department with complaints of severe abdominal pain increasing since this morning. Patient states he thought it might be gas pains and took some Gas-X but the pain has increased steadily since this morning. Patient is now feeling nauseous and is having episodes of diarrhea today. Patient has never had this kind of pain before. Patient denies history of any abdominal surgeries or history of Crohn's, UC. Patient denies fever, chills. Patient has no other complaints at this time. Upon arrival to ER, vital signs are stable. - Related Data Home Medications Medication Instructions Recorded Confirmed No Known Home Medications 06/30/19 06/30/19 Allergies Allergy/AdvReac Type Severity Reaction Status Date / Time No Known Allergies Allergy Verified 06/30/19 17:34 Review of Systems ROS Statement: Those systems with pertinent positive or pertinent negative responses have been documented in the HPI. ROS Other: All systems not noted in ROS Statement are negative. Past Medical History Past Medical History: No Reported History Additional Past Medical History / Comment(s): sciatic nerve problem. back injury. CHRONIC CONSTIPATION History of Any Multi-Drug Resistant Organisms: None Reported Past Surgical History: No Surgical Hx Reported Additional Past Anesthesia/Blood Transfusion Reaction / Comment(s): NO PRIOR SURGICAL PROCEDURES Past Psychological History: PTSD Smoking Status: Current every day smoker Past Alcohol Use History: None Reported Past Drug Use History: Marijuana - Past Family History Mother Family Medical History: No Reported History General Exam - General Exam Comments Initial Comments: GENERAL: Patient is rolling around the bed secondary to severe pain. HEAD: Atraumatic, normocephalic. EYES: Pupils equal round and reactive to light, extraocular movements intact, sclera anicteric, conjunctiva are normal. ENT: Nares patent, oropharynx clear without exudates. Moist mucous membranes. NECK: Normal range of motion, supple without lymphadenopathy or JVD. LUNGS: Breath sounds clear to auscultation bilaterally and equal. No wheezes rales or rhonchi. HEART: Regular rate and rhythm without murmurs, rubs or gallops. ABDOMEN: Tenderness to palpation of the umbilical area as well as suprapubic and right lower quadrant tenderness, mild guarding present.. Soft, normoactive bowel sounds. No rebound. No masses appreciated. : Deferred EXTREMITIES: Normal range of motion, no pitting or edema. No clubbing or cyanosis. NEUROLOGICAL: Cranial nerves II through XII grossly intact. Normal speech, normal gait. PSYCH: Normal mood, normal affect. SKIN: Warm, Dry, normal turgor, no rashes or lesions noted. Limitations: no limitations Course Vital Signs 06/30/19 17:08 Temperature 97.8 F Pulse Rate 64 Respiratory 18 Rate Blood Pressure 136/90 O2 Sat by Pulse 99 Oximetry Medical Decision Making - Medical Decision Making Patient is a 44-year-old male presenting to emergency Department with abdominal pain since this morning. Patient has severe tenderness of the umbilical region and right lower quadrant. White count was 12.7. UA is normal. CT findings are consistent with acute uncomplicated appendicitis. Case was discussed with Dr. Mijares. Patient will be admitted under Dr. Johnson. Patient be started on antibiotics and pain control. Patient is agreement with this plan of care. - Lab Data Result diagrams: 06/30/19 18:05 06/30/19 18:05 Lab Results 06/30/19 06/30/19 06/30/19 Range/Units 18:05 18:05 19:15 WBC 12.7 H (3.8-10.6) k/uL RBC 4.90 (4.30-5.90) m/uL Hgb 16.8 (13.0-17.5) gm/dL Hct 49.2 (39.0-53.0) % MCV 100.3 H (80.0-100.0) fL MCH 34.2 (25.0-35.0) pg MCHC 34.1 (31.0-37.0) g/dL RDW 12.3 (11.5-15.5) % Plt Count 159 (150-450) k/uL Neutrophils % 80 % Lymphocytes % 12 % Monocytes % 4 % Eosinophils % 1 % Basophils % 1 % Neutrophils # 10.1 H (1.3-7.7) k/uL Lymphocytes # 1.6 (1.0-4.8) k/uL Monocytes # 0.5 (0-1.0) k/uL Eosinophils # 0.1 (0-0.7) k/uL Basophils # 0.2 (0-0.2) k/uL Sodium 139 (137-145) mmol/L Potassium 3.8 (3.5-5.1) mmol/L Chloride 101 (98-107) mmol/L Carbon Dioxide 27 (22-30) mmol/L Anion Gap 11 mmol/L BUN 13 (9-20) mg/dL Creatinine 0.90 (0.66-1.25) mg/dL Est GFR (CKD-EPI)AfAm >90 (>60 ml/min/1.73 sqM) Est GFR (CKD-EPI)NonAf >90 (>60 ml/min/1.73 sqM) Glucose 99 (74-99) mg/dL Calcium 9.8 (8.4-10.2) mg/dL Total Bilirubin 1.1 (0.2-1.3) mg/dL AST 74 H (17-59) U/L ALT 103 H (21-72) U/L Alkaline Phosphatase 93 (38-126) U/L Total Protein 8.4 H (6.3-8.2) g/dL Albumin 4.7 (3.5-5.0) g/dL Amylase 44 (30-110) U/L Lipase 54 (23-300) U/L Urine Color Light Yellow Urine Appearance Clear (Clear) Urine pH 6.5 (5.0-8.0) Ur Specific [place] 1.015 (1.001-1.035) Urine Protein Negative (Negative) Urine Glucose (UA) Negative (Negative) Urine Ketones 1+ H (Negative) Urine Blood Negative (Negative) Urine Nitrite Negative (Negative) Urine Bilirubin Negative (Negative) Urine Urobilinogen <2.0 (<2.0) mg/dL Ur Leukocyte Esterase Negative (Negative) Disposition Clinical Impression: Acute appendicitis Disposition: ADMITTED IP TO THIS [facility] Condition: Stable Is patient prescribed a controlled substance at d/c from ED?: No Referrals: Kahlil Westbrook MD [Primary Care Provider] - 1-2 days Decision Date: 06/30/19 Decision Time: 20:24
[2019-06-30 18:20] LABS: Basophils # (A) 0.2 k/uL (0-0.2); Basophils % (A) 1 %; Eosinophils # (A) 0.1 k/uL (0-0.7); Eosinophils % (A) 1 %; HCT 49.2 % (39.0-53.0); HGB 16.8 gm/dL (13.0-17.5); Lymphocytes # (A) 1.6 k/uL (1.0-4.8); Lymphocytes % (A) 12 %; MCH 34.2 pg (25.0-35.0); MCHC 34.1 g/dL (31.0-37.0); MCV 100.3 fL (80.0-100.0); Mean Platelet Volume 7.6; Monocytes # (A) 0.5 k/uL (0-1.0); Monocytes % (A) 4 %; Neutrophils # (A) 10.1 k/uL (1.3-7.7); Neutrophils % (A) 80 %; Platelet Count 159 k/uL (150-450); RDW 12.3 % (11.5-15.5); WBC 12.7 k/uL (3.8-10.6)
[2019-06-30 18:29] LABS: ALT 103 U/L (21-72); AST 74 U/L (17-59); African American GFR (CKD) >90 (>60 ml/min/1.73 sqM); Albumin 4.7 g/dL (3.5-5.0); Alkaline Phosphatase 93 U/L (38-126); Amylase 44 U/L (30-110); Anion Gap 11 mmol/L; Blood Urea Nitrogen 13 mg/dL (9-20); Calcium 9.8 mg/dL (8.4-10.2); Carbon Dioxide 27 mmol/L (22-30); Chloride 101 mmol/L (98-107); Glucose 99 mg/dL (74-99); Potassium 3.8 mmol/L (3.5-5.1); Sodium 139 mmol/L (137-145); Total Bilirubin 1.1 mg/dL (0.2-1.3); Total Protein 8.4 g/dL (6.3-8.2)
[2019-06-30 19:25] LABS: Appearance,Urine Clear (Clear); Bilirubin,Urine Negative (Negative); Blood,Urine Negative (Negative); Color,Urine Light Yellow; Glucose,Urine (UA) Negative (Negative); Ketones,Urine 1+ (Negative); Leukocyte Esterase,Urine Negative (Negative); Nitrite,Urine Negative (Negative); PH, Urine 6.5 (5.0-8.0); Protein,Urine Negative (Negative); Specific Gravity,Urine 1.015 (1.001-1.035); Urobilinogen,Urine <2.0 mg/dL (<2.0)
--- NOTE | 2019-06-30 20:11 | CT ---
EXAMINATION TYPE: CT abdomen pelvis w con DATE OF EXAM: 06/30/2019 COMPARISON: 09/26/2018 CT HISTORY: Abdominal pain CT DLP: 959.6 mGycm Automated exposure control for dose reduction was used. TECHNIQUE: Helical acquisition of images was performed from the lung bases through the pelvis. CONTRAST: Performed without Oral Contrast and with IV Contrast, patient injected with 100 mL of Isovu e 300. FINDINGS: LUNG BASES: No acute findings. LIVER/GB: No significant abnormality is appreciated. PANCREAS: No significant abnormality is seen. SPLEEN: No significant abnormality is seen. ADRENALS: No significant abnormality is seen. KIDNEYS: No significant abnormality is seen. FREE AIR: No free air is visualized. RETROPERITONEAL ADENOPATHY: None visualized REPRODUCTIVE ORGANS: No significant abnormality is seen URINARY BLADDER: No significant abnormality is seen. PELVIC ADENOPATHY: None visualized. OSSEOUS STRUCTURES: No significant abnormality is seen. BOWEL: The appendix extends from the cecum to the midline, at the level of the sacral promontory. It reaches a diameter of 11 mm (top normal being 6 mm caliber). There is no associated periappendiceal fat stranding. There is nonspecific high attenuation within the lumen of the appendix at its junction with the cecum. When compared to the prior study of 09/26/2018, the appendix did not have this appear ance previously. The remainder of the hollow viscera of the abdomen and pelvis unremarkable. OTHER: Acute vascular findings. IMPRESSION: CT FINDINGS CONSISTENT WITH A CLINICAL DIAGNOSIS OF NONCOMPLICATED ACUTE APPENDICITIS.
[2019-06-30] MEDS ORDERED: HYDROmorphone 0.5 MG/0.5 ML SYRINGE IVP STA (20:21)
[2019-06-30] MEDS ORDERED: ACETAMINOPHEN TAB 325 MG TAB PO PRN (20:22)
[2019-06-30] MEDS ORDERED: NALOXONE 0.4 MG/ML 1 ML VIAL IV PRN (20:22)
[2019-06-30] MEDS ORDERED: MORPHINE SULFATE 4 MG/ML SYRINGE IV PRN (20:22)
[2019-06-30] MEDS ORDERED: traMADol 50 MG TAB PO PRN (20:22)
[2019-06-30] MEDS ORDERED: PIPERACILLIN-TAZOBACTAM 3.375 GM in SODIUM CHLORIDE 0.9% 100 ML IVPB STA (20:24)
[2019-06-30] MEDS ORDERED: SODIUM CHLORIDE 0.9% 1,000 ML IV SCH (20:30)
[2019-06-30] MEDS: ONDANSETRON 4 MG/2 ML VIAL IVP PRN (20:34)
[2019-06-30] MEDS ORDERED: HYDROmorphone 1 MG/ML 1 ML SYRINGE IVP PRN (22:46)
[2019-07-01] MEDS ORDERED: SODIUM CHLORIDE 0.9% 1,000 ML BAG ONE (01:35)
[2019-07-01] MEDS ORDERED: HYDROmorphone 1 MG/ML 1 ML SYRINGE ONE ×3 (01:35)
[2019-07-01] MEDS: PANTOPRAZOLE 40 MG/10 ML VIAL IVP SCH (08:13)
[2019-07-01] MEDS: PIPERACILLIN-TAZOBACTAM 3.375 GM in SODIUM CHLORIDE 0.9% 100 ML IVPB SCH ×3 (08:15→23:01)
[2019-07-01] MEDS ORDERED: HYDROmorphone 1 MG/ML 1 ML SYRINGE IVP PRN (08:28)
--- NOTE | 2019-07-01 08:28 | P.GSHP ---
<Yvonne Dominguez A - Last Filed: 07/01/19 08:26> History of Present Illness H&P Date: 07/01/19 Chief Complaint: Abdominal pain CHIEF COMPLAINT: abdominal pain HISTORY OF PRESENT ILLNESS: 44-year-old male who presented to emergency room with a chief complaint of abdominal pain that began yesterday morning. Patient examined at the bedside with Dr. Johnson. Patient appears extremely uncomfortable. His pain is not controlled, despite receiving IV dilaudid. Currently denies nausea or vomiting. Complains of dry mouth. PAST MEDICAL HISTORY: See list. PAST SURGICAL HISTORY: See list. SOCIAL HISTORY: No illicit drug use. REVIEW OF SYSTEMS: CONSTITUTIONAL: Denies fever or chills. HEENT: Denies blurred vision, vision changes, or eye pain. Denies hemoptysis CARDIOVASCULAR: Denies chest pain or pressure. RESPIRATORY: No shortness of breath. GASTROINTESTINAL: Refer to [facility] for pertinent findings HEMATOLOGIC: Denies bleeding disorders. GENITOURINARY: Denies any blood in urine. SKIN: Denies pruitis. Denies rash. PHYSICAL EXAM: VITAL SIGNS: Reviewed. GENERAL: Well-developed in no acute distress but appears to be in significant pain HEENT: No sclera icterus. Extraocular movements grossly intact. Moist buccal mucosa. Head is atraumatic, normocephalic. ABDOMEN: Soft. Nondistended. Tenderness to right lower quadrant. NEUROLOGIC: Alert and oriented. Cranial nerves II through XII grossly intact. LABORATORY DATA: WBC 12.7. Hemoglobin 16.8. Platelet count 159. Bilirubin 1.1. AST 74. ALT 103. Alkaline phosphatase 93. IMAGING: CT abdomen and pelvis: Findings consistent with uncomplicated acute appendicitis. ASSESSMENT: 1. Abdominal pain 2. Acute appendicitis PLAN: 1. NPO. Continue IV fluids 2. Monitor WBC. Continue Zosyn IV every 8 hours 3. Patient to undergo laparoscopic appendectomy today with Dr. Johnson Nurse practitioner note has been reviewed by physician. Signing provider agrees with the documented findings, assessment, and plan of care. Past Medical History Past Medical History: No Reported History Additional Past Medical History / Comment(s): sciatic nerve problem. back injury. CHRONIC CONSTIPATION History of Any Multi-Drug Resistant Organisms: None Reported Past Surgical History: No Surgical Hx Reported Additional Past Anesthesia/Blood Transfusion Reaction / Comment(s): NO PRIOR SURGICAL PROCEDURES Past Psychological History: PTSD Smoking Status: Current every day smoker Past Alcohol Use History: None Reported Additional Past Alcohol Use History / Comment(s): SMOKES 1 PPD SINCE AGE 18 Past Drug Use History: Marijuana Additional Drug Use History / Comment(s): USES [employer] -TWICE DAILY- INSTRUCTED TO REFRAIN FROM USE FOR AT LEAST 24 HOURS PRIOR TO PROCEDURE - Past Family History Mother Family Medical History: No Reported History Medications and Allergies Home Medications Medication Instructions Recorded Confirmed Type No Known Home Medications 06/30/19 06/30/19 History Allergies Allergy/AdvReac Type Severity Reaction Status Date / Time No Known Allergies Allergy Verified 06/30/19 17:34 Surgical - Exam Vital Signs Temp Pulse Resp BP Pulse Ox 97.8 F 64 18 136/90 99 06/30/19 17:08 06/30/19 17:08 06/30/19 17:08 06/30/19 17:08 06/30/19 17:08 Results - Labs 06/30/19 18:05 06/30/19 18:05 Abnormal Lab Results - Last 24 Hours (Table) 06/30/19 06/30/19 06/30/19 Range/Units 18:05 18:05 19:15 WBC 12.7 H (3.8-10.6) k/uL MCV 100.3 H (80.0-100.0) fL Neutrophils # 10.1 H (1.3-7.7) k/uL AST 74 H (17-59) U/L ALT 103 H (21-72) U/L Total Protein 8.4 H (6.3-8.2) g/dL Urine Ketones 1+ H (Negative) Diabetes panel 06/30/19 Range/Units 18:05 Sodium 139 (137-145) mmol/L Potassium 3.8 (3.5-5.1) mmol/L Chloride 101 (98-107) mmol/L Carbon Dioxide 27 (22-30) mmol/L BUN 13 (9-20) mg/dL Creatinine 0.90 (0.66-1.25) mg/dL Glucose 99 (74-99) mg/dL Calcium 9.8 (8.4-10.2) mg/dL AST 74 H (17-59) U/L ALT 103 H (21-72) U/L Alkaline Phosphatase 93 (38-126) U/L Total Protein 8.4 H (6.3-8.2) g/dL Albumin 4.7 (3.5-5.0) g/dL Calcium panel 06/30/19 Range/Units 18:05 Calcium 9.8 (8.4-10.2) mg/dL Albumin 4.7 (3.5-5.0) g/dL Pituitary panel 06/30/19 Range/Units 18:05 Sodium 139 (137-145) mmol/L Potassium 3.8 (3.5-5.1) mmol/L Chloride 101 (98-107) mmol/L Carbon Dioxide 27 (22-30) mmol/L BUN 13 (9-20) mg/dL Creatinine 0.90 (0.66-1.25) mg/dL Glucose 99 (74-99) mg/dL Calcium 9.8 (8.4-10.2) mg/dL Adrenal panel 06/30/19 Range/Units 18:05 Sodium 139 (137-145) mmol/L Potassium 3.8 (3.5-5.1) mmol/L Chloride 101 (98-107) mmol/L Carbon Dioxide 27 (22-30) mmol/L BUN 13 (9-20) mg/dL Creatinine 0.90 (0.66-1.25) mg/dL Glucose 99 (74-99) mg/dL Calcium 9.8 (8.4-10.2) mg/dL Total Bilirubin 1.1 (0.2-1.3) mg/dL AST 74 H (17-59) U/L ALT 103 H (21-72) U/L Alkaline Phosphatase 93 (38-126) U/L Total Protein 8.4 H (6.3-8.2) g/dL Albumin 4.7 (3.5-5.0) g/dL <Reji Johnson - Last Filed: 07/01/19 10:20> Surgical - Exam Vital Signs Temp Pulse Resp BP Pulse Ox 97.8 F 64 18 136/90 99 06/30/19 17:08 06/30/19 17:08 06/30/19 17:08 06/30/19 17:08 06/30/19 17:08 Results - Labs 06/30/19 18:05 06/30/19 18:05 Abnormal Lab Results - Last 24 Hours (Table) 06/30/19 06/30/19 06/30/19 Range/Units 18:05 18:05 19:15 WBC 12.7 H (3.8-10.6) k/uL MCV 100.3 H (80.0-100.0) fL Neutrophils # 10.1 H (1.3-7.7) k/uL AST 74 H (17-59) U/L ALT 103 H (21-72) U/L Total Protein 8.4 H (6.3-8.2) g/dL Urine Ketones 1+ H (Negative) Diabetes panel 06/30/19 Range/Units 18:05 Sodium 139 (137-145) mmol/L Potassium 3.8 (3.5-5.1) mmol/L Chloride 101 (98-107) mmol/L Carbon Dioxide 27 (22-30) mmol/L BUN 13 (9-20) mg/dL Creatinine 0.90 (0.66-1.25) mg/dL Glucose 99 (74-99) mg/dL Calcium 9.8 (8.4-10.2) mg/dL AST 74 H (17-59) U/L ALT 103 H (21-72) U/L Alkaline Phosphatase 93 (38-126) U/L Total Protein 8.4 H (6.3-8.2) g/dL Albumin 4.7 (3.5-5.0) g/dL Calcium panel 06/30/19 Range/Units 18:05 Calcium 9.8 (8.4-10.2) mg/dL Albumin 4.7 (3.5-5.0) g/dL Pituitary panel 06/30/19 Range/Units 18:05 Sodium 139 (137-145) mmol/L Potassium 3.8 (3.5-5.1) mmol/L Chloride 101 (98-107) mmol/L Carbon Dioxide 27 (22-30) mmol/L BUN 13 (9-20) mg/dL Creatinine 0.90 (0.66-1.25) mg/dL Glucose 99 (74-99) mg/dL Calcium 9.8 (8.4-10.2) mg/dL Adrenal panel 06/30/19 Range/Units 18:05 Sodium 139 (137-145) mmol/L Potassium 3.8 (3.5-5.1) mmol/L Chloride 101 (98-107) mmol/L Carbon Dioxide 27 (22-30) mmol/L BUN 13 (9-20) mg/dL Creatinine 0.90 (0.66-1.25) mg/dL Glucose 99 (74-99) mg/dL Calcium 9.8 (8.4-10.2) mg/dL Total Bilirubin 1.1 (0.2-1.3) mg/dL AST 74 H (17-59) U/L ALT 103 H (21-72) U/L Alkaline Phosphatase 93 (38-126) U/L Total Protein 8.4 H (6.3-8.2) g/dL Albumin 4.7 (3.5-5.0) g/dL
[2019-07-01] MEDS: ONDANSETRON 4 MG/2 ML VIAL IVP PRN (09:15)
[2019-07-01] MEDS ORDERED: IV FLUID CONTINUATION 700 ML IV ONE (09:15)
[2019-07-01] MEDS ORDERED: fentaNYL (PF) 50 MCG/ML 2 ML AMP IV ONE (09:15)
[2019-07-01] MEDS: HEPARIN SODIUM,PORCINE 5,000 UNIT/ML 1 ML VIAL SQ SCH (10:14)
[2019-07-01] MEDS ORDERED: MEPERIDINE 50 MG/ML SYRINGE ONE (10:33)
[2019-07-01] MEDS ORDERED: LIDOCAINE 1% INJ 10MG/ML (20 ML MDV) ONE (10:33)
[2019-07-01] MEDS ORDERED: MIDAZOLAM 2 MG/2 ML VIAL ONE (10:33)
[2019-07-01] MEDS ORDERED: SUCCINYLCHOLINE CHLORIDE 100 MG/5 ML SYR IV ONE (10:33)
[2019-07-01] MEDS ORDERED: PROPOFOL 10 MG/ML 20 ML VIAL IV ONE (10:33)
[2019-07-01] MEDS ORDERED: GLYCOPYRROLATE 0.2 MG/ML 2 ML VIAL ONE (10:33)
[2019-07-01] MEDS ORDERED: NEOSTIGMINE 1 MG/ML 10 ML VIAL ONE (10:33)
[2019-07-01] MEDS ORDERED: fentaNYL (PF) 50 MCG/ML 2 ML AMP ONE (10:33)
[2019-07-01] MEDS ORDERED: ROCURONIUM BROMIDE 10 MG/ML 10 ML VIAL IV ONE (10:33)
[2019-07-01] MEDS ORDERED: BUPIVACAINE (PF) 0.5% 30 ML VIAL SQ ONE (10:58)
--- NOTE | 2019-07-01 11:34 | P.OP ---
Date of Procedure: 07/01/19 Preoperative Diagnosis: Acute appendicitis Postoperative Diagnosis: Acute appendicitis with microperforation Procedure(s) Performed: Laparoscopic appendectomy Anesthesia: WILLEM Surgeon: Reji Johnson Estimated Blood Loss (ml): 5 Pathology: other (Appendix) Condition: stable Disposition: PACU Description of Procedure: HaThe patient's placed on the operating table in the supine position. The patient received general anesthesia. The abdomen was prepped and draped in the usual sterile fashion. The skin was anesthetized 1% local Xylocaine at the trocar sites. Using an 11 blade the skin was incised at the umbilicus. The umbilicus was grasped with a Eileen clamp and then a Veress needle was placed into the peritoneal cavity. Position of the Veress needle was confirmed with positive drop test. After adequate insufflation a 5 mm trocar was placed into t he peritoneal cavity. The abdomen was further insufflated. And then the laparoscope was placed in the peritoneal cavity. Next a 5 mm trocar was placed in the midline suprapubic position. And then a 10 mm trocar was placed in the midline epigastric position. The patient was rotated with the right side up and in Trendelenburg. The appendix was visualized. The appendix appeared to be inflamed. The appendix was grasped and then using the Harmonic scissors the mesoappendix was divided. A PDS Endoloop was then placed around the base of the appendix. And then the appendix was divided using Harmonic scissors. The appendix was placed into an Endo Catch and brought out through the 10 mm trocar site. The abdomen was irrigated. There is no bleeding seen. The trochars withdrawn. The skin was closed interrupted 3-0 Monocryl suture. Dermabond dressing was applied. Patient was sent to recovery room in stable condition.
[2019-07-01] MEDS: HYDROmorphone 1 MG/ML 1 ML SYRINGE IVP ONE ×4 (11:59→12:25)
[2019-07-01] MEDS ORDERED: SODIUM CHLORIDE 0.9% 1,000 ML IV ONE (12:11)
[2019-07-01] MEDS: HYDROmorphone 1 MG/ML 1 ML SYRINGE IVP PRN ×3 (13:45→21:56)
--- NOTE | 2019-07-01 16:11 | P.CONS ---
History of Present Illness - Reason for Consult Sepsis. Elevated liver enzymes - History of Present Illness 44-year-old male admitted for right lower quadrant abdominal pain severe along with nausea vomiting patient is found to have appendicitis and patient underwent appendectomy there was a localized abscess up as per the operative report. Patient is Zosyn at this time still complaining of significant abdominal pain patient was started on Toradol and patient is already on Protonix. does have leukocytosis a patient does have elevated liver enzymes which is probably related to his sepsis itself will repeat liver enzymes tomorrow if they're still elevated will do further workup at that time. Review of Systems REVIEW OF SYSTEMS: CONSTITUTIONAL: No fever, no malaise, no fatigue. HEENT: No recent visual problems or hearing problems. Denied any sore throat. CARDIOVASCULAR: No chest pain, orthopnea, PND, no palpitations, no syncope. PULMONARY: No shortness of breath, no cough, no hemoptysis. GASTROINTESTINAL: As mentioned in HPI NEUROLOGICAL: No headaches, no weakness, no numbness. HEMATOLOGICAL: Denies any bleeding or petechiae. GENITOURINARY: Denies any burning micturition, frequency, or urgency. MUSCULOSKELETAL/RHEUMATOLOGICAL: Denies any joint pain, swelling, or any muscle pain. ENDOCRINE: Denies any polyuria or polydipsia. The rest of the 14-point review of systems is negative. Past Medical History Past Medical History: No Reported History Additional Past Medical History / Comment(s): sciatic nerve problem. back injury. CHRONIC CONSTIPATION History of Any Multi-Drug Resistant Organisms: None Reported Past Surgical History: No Surgical Hx Reported Additional Past Anesthesia/Blood Transfusion Reaction / Comm: NO PRIOR SURGICAL PROCEDURES Past Psychological History: PTSD Smoking Status: Current every day smoker Past Alcohol Use History: None Reported Additional Past Alcohol Use History / Comment(s): SMOKES 1 PPD SINCE AGE 18 Past Drug Use History: Marijuana Additional Drug Use History / Comment(s): USES [employer] -TWICE DAILY- INSTRUCTED TO REFRAIN FROM USE FOR AT LEAST 24 HOURS PRIOR TO PROCEDURE - Past Family History Mother Family Medical History: No Reported History Medications and Allergies Home Medications Medication Instructions Recorded Confirmed Type No Known Home Medications 06/30/19 06/30/19 History Allergies Allergy/AdvReac Type Severity Reaction Status Date / Time No Known Allergies Allergy Verified 06/30/19 17:34 Physical Exam Vitals: Vital Signs Temp Pulse Pulse Resp BP BP Pulse Ox 10/16/19 15:00 98.0 F 71 14 158/84 98 07/01/19 12:31 81 16 116/71 95 07/01/19 12:15 80 16 118/71 94 L 07/01/19 12:02 75 16 132/80 100 07/01/19 11:45 77 16 133/82 100 07/01/19 11:33 84 16 158/89 100 07/01/19 11:22 98.4 F 97 16 160/90 99 07/01/19 09:13 99.6 F 90 16 144/83 100 07/01/19 07:00 98.9 F 90 16 139/92 100 07/01/19 01:25 99.0 F 66 155/88 98 06/30/19 22:29 98.7 F 94 18 144/88 95 06/30/19 21:40 98.6 F 88 18 136/70 98 06/30/19 20:35 98.7 F 68 18 147/96 98 06/30/19 17:08 97.8 F 64 18 136/90 99 Intake and Output 07/01/19 07/01/19 07/01/19 06:59 14:59 22:59 Intake Total 701 Output Total 7 Balance 694 Intake: IV 701 Output: Estimated Blood Loss 7 Other: # Voids 1 PHYSICAL EXAMINATION: GENERAL: The patient is alert and oriented x3, not in any acute distress. Well developed, well nourished. HEENT: Pupils are round and equally reacting to light. EOMI. No scleral icterus. No conjunctival pallor. Normocephalic, atraumatic. No pharyngeal erythema. No thyromegaly. CARDIOVASCULAR: S1 and S2 present. No murmurs, rubs, or gallops. PULMONARY: Chest is clear to auscultation, no wheezing or crackles. ABDOMEN: Distended from his recent laparoscopic surgery surgical site areas appear to be clean sluggish bowel sounds MUSCULOSKELETAL: No joint swelling or deformity. EXTREMITIES: No cyanosis, clubbing, or pedal edema. NEUROLOGICAL: Gross neurological examination did not reveal any focal deficits. SKIN: No rashes. Results CBC & Chem 7: 06/30/19 18:05 06/30/19 18:05 Labs: Abnormal Lab Results - Last 24 Hours (Table) 06/30/19 06/30/19 06/30/19 Range/Units 18:05 18:05 19:15 WBC 12.7 H (3.8-10.6) k/uL MCV 100.3 H (80.0-100.0) fL Neutrophils # 10.1 H (1.3-7.7) k/uL AST 74 H (17-59) U/L ALT 103 H (21-72) U/L Total Protein 8.4 H (6.3-8.2) g/dL Urine Ketones 1+ H (Negative) Assessment and Plan Plan: - acute appendicitis status post surgery: Antibiotics will be continued can you with IV fluids. Pain management as per primary service although Toradol was added to avoid excess opiate analgesia -Nicotine abuse: Counseling was provided -Related liver enzymes secondary to sepsis expected to improve with repeat liver enzymes again tomorrow. -DVT prophylaxis and GI prophylaxis as per family's was
[2019-07-01] MEDS: KETOROLAC 30 MG/ML 1 ML VIAL IVP PRN (17:07)
[2019-07-01] MEDS ORDERED: FAMOTIDINE 20 MG TAB PO SCH (21:00)
[2019-07-01] MEDS: SODIUM CHLORIDE 0.9% 1,000 ML IV SCH ×2 (23:01→23:03)
[2019-07-02] MEDS: HYDROmorphone 1 MG/ML 1 ML SYRINGE IVP PRN ×6 (01:13→23:56)
[2019-07-02] MEDS: SODIUM CHLORIDE 0.9% 1,000 ML IV SCH (05:21)
[2019-07-02] MEDS: PANTOPRAZOLE 40 MG/10 ML VIAL IVP SCH (07:30)
[2019-07-02] MEDS: HEPARIN SODIUM,PORCINE 5,000 UNIT/ML 1 ML VIAL SQ SCH ×2 (07:30→20:10)
[2019-07-02] MEDS: PIPERACILLIN-TAZOBACTAM 3.375 GM in SODIUM CHLORIDE 0.9% 100 ML IVPB SCH ×3 (07:31→23:57)
[2019-07-02] MEDS: KETOROLAC 30 MG/ML 1 ML VIAL IVP PRN ×2 (07:31→21:58)
[2019-07-02 08:34] LABS: ALT 73 U/L (21-72); AST 56 U/L (17-59); African American GFR (CKD) >90 (>60 ml/min/1.73 sqM); Albumin 3.7 g/dL (3.5-5.0); Alkaline Phosphatase 53 U/L (38-126); Anion Gap 9 mmol/L; Blood Urea Nitrogen 17 mg/dL (9-20); Calcium 8.7 mg/dL (8.4-10.2); Carbon Dioxide 23 mmol/L (22-30); Chloride 105 mmol/L (98-107); Glucose 85 mg/dL (74-99); Potassium 4.4 mmol/L (3.5-5.1); Sodium 137 mmol/L (137-145); Total Bilirubin 1.9 mg/dL (0.2-1.3)
--- NOTE | 2019-07-02 09:33 | P.PN ---
Subjective Progress Note Date: 07/02/19 CHIEF COMPLAINT: abdominal pain HISTORY OF PRESENT ILLNESS: patient is status post laparoscopic appendectomy. Patient was found to have appendicitis with microperforation. He is postop day #1. Patient examined this morning at the bedside. he continues to report abdominal pain. Currently rating his pain 7 out of 10. Tolerating clear liquid diet. Denies nausea or vomiting. vital signs stable. He's afebrile. PHYSICAL EXAM: VITAL SIGNS: Reviewed. GENERAL: Well-developed in no acute distress. HEENT: No sclera icterus. Extraocular movements grossly intact. Moist buccal mucosa. Head is atraumatic, normocephalic. ABDOMEN: Soft. Nondistended. Appropriate surgical tenderness. Incision sites clean dry intact. NEUROLOGIC: Alert and oriented. Cranial nerves II through XII grossly intact. ASSESSMENT: 1. Abdominal pain 2. Acute appendicitis with microperforation PLAN: 1. Advance diet to full liquids 2. Monitor WBC. Repeat in AM. Continue Zosyn IV every 8 hours 3. Pain control. Will add [place] PRN 4. Activity as tolerated 5. Anticipate discharge home tomorrow if pain is controlled on oral medications Nurse practitioner note has been reviewed by physician. Signing provider agrees with the documented findings, assessment, and plan of care. Objective - Vital Signs Vital signs: Vital Signs Temp 98 F 07/02/19 07:00 Pulse 80 07/02/19 07:00 Resp 16 07/02/19 07:00 BP 133/88 07/02/19 07:00 Pulse Ox 96 07/02/19 07:00 Intake & Output 07/01/19 07/02/19 07/02/19 18:59 06:59 18:59 Intake Total 1501 Output Total 7 550 Balance 1494 -550 Intake: IV 701 Intake, IV Titration 800 Amount Piperacillin-Tazobactam 3 100 .375 gm In Sodium Chloride 0.9% 100 ml @ 25 mls/hr IVPB Q8HR [facility] Rx# :[id number] Sodium Chloride 0.9% 1, 700 000 ml @ 100 mls/hr IV . Q10H [facility]Y Rx#:[id number] Output: Urine 550 Estimated Blood Loss 7 Other: # Voids 1 1 - Labs CBC & Chem 7: 06/30/19 18:05 07/02/19 07:45 Labs: Abnormal Lab Results - Last 24 Hours (Table) 07/02/19 Range/Units 07:45 Total Bilirubin 1.9 H (0.2-1.3) mg/dL ALT 73 H (21-72) U/L Microbiology - Last 24 Hours (Table) 06/30/19 22:00 Blood Culture - Preliminary Blood No Growth after 24 hours
--- NOTE | 2019-07-02 14:39 | P.PN ---
Subjective 44-year-old admitted for acute appendicitis status post appendectomy patient is receiving coronary bit of opiates because of which patient is constipated and unable to pass gas counseling was provided to amylase and the hardware. Patient was started on Toradol to avoid excess opiate analgesia. Constitutional: Denied any fatigue denied any fever. Cardio vascular: denied any chest pain, palpitations Gastrointestinal continued abdominal pain Pulmonary: Denied any shortness of breath cough Neurologic denied any new focal deficits All inpatient medications were reviewed and appropriate changes in these medications as dictated in the interval history and assessment and plan. Objective - Vital Signs Vital signs: Vital Signs Temp 97.7 F 07/02/19 14:03 Pulse 79 07/02/19 14:03 Resp 16 07/02/19 14:03 BP 165/80 07/02/19 14:03 Pulse Ox 97 07/02/19 14:03 Intake & Output 07/01/19 07/02/19 07/02/19 18:59 06:59 18:59 Intake Total 1501 250 Output Total 7 550 800 Balance 1494 -550 -550 Intake: IV 701 Intake, IV Titration 800 Amount Piperacillin-Tazobactam 3 100 .375 gm In Sodium Chloride 0.9% 100 ml @ 25 mls/hr IVPB Q8HR [facility] Rx# :[id number] Sodium Chloride 0.9% 1, 700 000 ml @ 100 mls/hr IV . Q10H [facility]Y Rx#:[id number] Oral 250 Output: Urine 550 800 Estimated Blood Loss 7 Other: # Voids 1 1 3 - Exam PHYSICAL EXAMINATION: GENERAL: The patient is alert and oriented x3, not in any acute distress. Well developed, well nourished. HEENT: Pupils are round and equally reacting to light. EOMI. No scleral icterus. No conjunctival pallor. Normocephalic, atraumatic. No pharyngeal erythema. No thyromegaly. CARDIOVASCULAR: S1 and S2 present. No murmurs, rubs, or gallops. PULMONARY: Chest is clear to auscultation, no wheezing or crackles. ABDOMEN: Abdomen is distended with very minimal tenderness tympanic sluggish bowel sounds MUSCULOSKELETAL: No joint swelling or deformity. EXTREMITIES: No cyanosis, clubbing, or pedal edema. NEUROLOGICAL: Gross neurological examination did not reveal any focal deficits. SKIN: No rashes. - Labs CBC & Chem 7: 06/30/19 18:05 07/02/19 07:45 Labs: Abnormal Lab Results - Last 24 Hours (Table) 07/02/19 Range/Units 07:45 Total Bilirubin 1.9 H (0.2-1.3) mg/dL ALT 73 H (21-72) U/L Microbiology - Last 24 Hours (Table) 06/30/19 22:00 Blood Culture - Preliminary Blood No Growth after 24 hours Assessment and Plan Plan: - acute appendicitis status post surgery: Antibiotics will be continued can you with IV fluids. Pain management as per primary service although Toradol was add ed to avoid excess opiate analgesia -Constipation: Secondary to excess opiates patient was asked to ambulate in the hallways and avoid opiates -Nicotine abuse: Counseling was provided -Related liver enzymes secondary to sepsis expected to improve with repeat liver enzymes again tomorrow. -DVT prophylaxis and GI prophylaxis as per family's was
[2019-07-02] MEDS: HYDROcodone/APAP 5-325MG 1 EACH TAB PO PRN (20:08)
[2019-07-03] MEDS: SODIUM CHLORIDE 0.9% 1,000 ML IV SCH ×2 (03:06→04:50)
[2019-07-03] MEDS: HYDROcodone/APAP 5-325MG 1 EACH TAB PO PRN ×2 (04:49→10:21)
[2019-07-03] MEDS: KETOROLAC 30 MG/ML 1 ML VIAL IVP PRN (06:27)
[2019-07-03 07:26] VITALS: BP 126/78; PULSE 59; RESP 16; TEMP 98.2
[2019-07-03] MEDS: PIPERACILLIN-TAZOBACTAM 3.375 GM in SODIUM CHLORIDE 0.9% 100 ML IVPB SCH (08:49)
[2019-07-03] MEDS: HEPARIN SODIUM,PORCINE 5,000 UNIT/ML 1 ML VIAL SQ SCH (08:49)
[2019-07-03] MEDS ORDERED: PANTOPRAZOLE 40 MG TABLET PO SCH (09:00)
[2019-07-03 09:25] LABS: Basophils # (A) 0.1 k/uL (0-0.2); Basophils % (A) 1 %; Eosinophils % (A) 1 %; HCT 44.3 % (39.0-53.0); HGB 15.6 gm/dL (13.0-17.5); Lymphocytes # (A) 1.7 k/uL (1.0-4.8); Lymphocytes % (A) 25 %; MCH 35.4 pg (25.0-35.0); MCHC 35.4 g/dL (31.0-37.0); MCV 100.1 fL (80.0-100.0); Mean Platelet Volume 7.2; Monocytes # (A) 0.5 k/uL (0-1.0); Monocytes % (A) 8 %; Neutrophils # (A) 4.4 k/uL (1.3-7.7); Neutrophils % (A) 64 %; Platelet Count 153 k/uL (150-450); RBC 4.42 m/uL (4.30-5.90); RDW 11.9 % (11.5-15.5); WBC 6.9 k/uL (3.8-10.6)
--- NOTE | 2019-07-03 12:06 | P.DS ---
Providers Date of admission: 07/02/19 11:49 Expected date of discharge: 07/03/19 Attending physician: Reji Johnson Consults: 07/01/19 07:52 Consult Physician Routine Consulting Provider: Tomasz Tavares Consult Reason/Comments: medical management Do you want consulting provider notified?: Yes Primary care physician: Dariana Guillory [facility] Course: This a 44-year-old male who is admitted hospital with acute appendicitis. Patient underwent laparoscopic appendectomy. Please see CHART for details. Procedures: Laparoscopic appendectomy Patient Condition at Discharge: Good Plan - Discharge Summary New Discharge Prescriptions: New Hydrocodone/Acetaminophen [[place] 5-325] 1 tab PO Q4HR PRN 3 Days #18 tab PRN Reason: Pain Docusate [Colace] 100 mg PO BID #30 capsule Levofloxacin [Levaquin] 500 mg PO DAILY #7 tab Discharge Medication List Docusate [Colace] 100 mg PO BID #30 capsule 07/02/19 [Rx] Hydrocodone/Acetaminophen [[place] 5-325] 1 tab PO Q4HR PRN 3 Days #18 tab 07/02/19 [Rx] Levofloxacin [Levaquin] 500 mg PO DAILY #7 tab 07/02/19 [Rx] Follow up Appointment(s)/Referral(s): Kahlil Westbrook MD [Primary Care Provider] - 1-2 days Reji Johnson MD [STAFF PHYSICIAN] - 1 Week Activity/Diet/Wound Care/Special Instructions: No driving while taking [place] No lifting over 10 pounds You may shower. No soaking or tub baths Very light activity until you are reevaluated at your follow up appointment with your surgeon Discharge Disposition: HOME SELF-CARE
--- NOTE | 2019-07-03 13:23 | P.PN ---
Subjective Progress Note Date: 07/03/19 Principal diagnosis: 44-year-old admitted for acute appendicitis status post appendectomy patient is receiving coronary bit of opiates because of which patient is constipated and un able to pass gas counseling was provided to amylase and the hardware. Patient was started on Toradol to avoid excess opiate analgesia. Constitutional: Denied any fatigue denied any fever. Cardio vascular: denied any chest pain, palpitations Gastrointestinal continued abdominal pain Pulmonary: Denied any shortness of breath cough Neurologic denied any new focal deficits All inpatient medications were reviewed and appropriate changes in these medications as dictated in the interval history and assessment and plan. 07/03/2019 Patient is sitting up at the side of the bed in no acute distress. Patient states that he is feeling much better today and would like to go home today. Patient is passing gas and having bowel movements and no issues with urinating. Patient denies any chest pain, shortness of breath, or palpitations at this time. Patient's pain is minimal and states that is more like of discomfort at the area of the incisions from his appendectomy. Incisions are dry, taped, and no redness or swelling noted. Patient is tolerating diet with no reports of nausea or vomiting. Patient is currently waiting for surgery to round. Guarded prognosis. Objective - Vital Signs Vital signs: Vital Signs Temp 98.2 F 07/03/19 07:00 Pulse 59 L 07/03/19 08:00 Resp 16 07/03/19 08:00 BP 126/78 07/03/19 07:00 Pulse Ox 98 07/03/19 07:00 Intake & Output 07/02/19 07/03/19 07/03/19 18:59 06:59 18:59 Intake Total 250 Output Total 800 700 Balance -550 -700 Intake: Oral 250 Output: Urine 800 700 Other: Voiding Method Toilet Toilet Urinal Urinal # Voids 3 2 - Exam GENERAL: The patient is alert and oriented x3, not in any acute distress. Well developed, well nourished. Vital signs are stable. There is 98.2F, pulse is 59, respirations are 16, blood pressure is 126/78, oxygen saturation is 90% on room air. HEENT: Pupils are round and equally reacting to light. EOMI. No scleral icterus. No conjunctival pallor. Normocephalic, atraumatic. No pharyngeal erythema. No thyromegaly. CARDIOVASCULAR: S1 and S2 present. No murmurs, rubs, or gallops. PULMONARY: Chest is clear to auscultation, no wheezing or crackles. ABDOMEN: Abdomen has minimal tenderness upon palpation at the incision site. Bowel sounds are present. MUSCULOSKELETAL: No joint swelling or deformity. EXTREMITIES: No cyanosis, clubbing, or pedal edema. NEUROLOGICAL: Gross neurological examination did not reveal any focal deficits. SKIN: No rashes. - Labs CBC & Chem 7: 07/03/19 08:32 07/02/19 07:45 Labs: Abnormal Lab Results - Last 24 Hours (Table) 07/03/19 Range/Units 08:32 MCV 100.1 H (80.0-100.0) fL MCH 35.4 H (25.0-35.0) pg Microbiology - Last 24 Hours (Table) 06/30/19 22:00 Blood Culture - Preliminary Blood No Growth after 48 hours Assessment and Plan Assessment: - acute appendicitis status post surgery: Antibiotics will be continued continue with IV fluids. Pain management as per primary service although Toradol was added to avoid excess opiate analgesia -Constipation: Secondary to excess opiates patient was asked to ambulate in the hallways and avoid opiates -Nicotine abuse: Counseling was provided Elevated liver enzymes secondary to sepsis expected to improve with repeat liver enzymes again tomorrow. -DVT prophylaxis: Early ambulation and heparin subq GI prophylaxis: protonix Recommendations and discussion: Recommend to continue current medications, management, and symptomatic treatment. Will continue to follow along closely. Patient is stating he feels much better like to go home today. Patient is passing gas and having bowel movements and is tolerating diet and per nursing staff has not required any opioid analgesics since last night. Guarded prognosis. Patient is awaiting for surgery consult for possible discharge today.
== END 2019-07-03 14:51 | disposition home or self-care (01) | DRG 853 ==
LOC: EC 16:46 → 4SSUR 21:46 → OBSVTOIN 07-02 11:49
PROVIDERS: ADMIT Surgery; ATTEND Surgery
PROC: 0DTJ4ZZ Resection of Appendix, Percutaneous Endoscopic Approach (ICD-10-PCS; principal; 2019-07-01 10:05)
DX: A41.9 Sepsis, unspecified organism (principal); K35.32 Acute appendicitis with perforation, localized peritonitis, and gangrene, without abscess; K59.03 Drug induced constipation; T40.605A Adverse effect of unspecified narcotics, initial encounter; Z71.6 Tobacco abuse counseling; F17.210 Nicotine dependence, cigarettes, uncomplicated; Z86.59 Personal history of other mental and behavioral disorders; Z87.39 Personal history of other diseases of the musculoskeletal system and connective tissue
CPT/HCPCS: 36415; 74177; 80053; 81003; 82150; 83690; 85025; 87040; 88304; 96361; 96374; 96375; 96376; 99285

== ENCOUNTER 2019-07-03 18:11 | Emergency (ER) | payer OTHER ==
[2019-07-03 18:29] VITALS: BP 139/84; PULSE 75; RESP 18; TEMP 98.7
--- NOTE | 2019-07-03 18:55 | ED ---
Eye Problem HPI - General Chief complaint: Eye Problems Stated complaint: blister in eye Time Seen by Provider: 07/03/19 18:32 Source: patient Mode of arrival: ambulatory Limitations: no limitations - History of Present Illness Initial comments: Patient is a 44-year-old male presenting to emergency Department with a chief complaint of eye irritation. Patient reports he was recently discharged here after a surgical procedure. Patient reports he noticed that he developed itchiness in the left eye along with some "fluid" with his left eye. Patient d enies any pain with extraocular movements. Patient denies blurry vision, headaches or pressure in the eye. Patient does denies any injury to the left eye. Patient does report some yellow fluid discharge but denies any crusting from the eye. Patient does not wear contacts. - Related Data Previous Rx's Medication Instructions Recorded Docusate [Colace] 100 mg PO BID #30 capsule 07/02/19 Hydrocodone/Acetaminophen [[place] 1 tab PO Q4HR PRN 3 Days #18 tab 07/02/19 5-325] Levofloxacin [Levaquin] 500 mg PO DAILY #7 tab 07/02/19 Ketotifen 0.025% Ophth Soln 1 drop BOTH EYES BID #1 bottle 07/03/19 [Zaditor] Polymyxin B-Trimeth Sulf Ophth 1 drops BOTH EYES Q4H #1 bottle 07/03/19 [Polytrim Opthalmic] Allergies Allergy/AdvReac Type Severity Reaction Status Date / Time No Known Allergies Allergy Verified 07/03/19 18:26 Review of Systems ROS Statement: Those systems with pertinent positive or pertinent negative responses have been documented in the HPI. ROS Other: All systems not noted in ROS Statement are negative. Past Medical History Past Medical History: No Reported History Additional Past Medical History / Comment(s): sciatic nerve problem. back injury. CHRONIC CONSTIPATION History of Any Multi-Drug Resistant Organisms: None Reported Past Surgical History: Appendectomy Additional Past Anesthesia/Blood Transfusion Reaction / Comment(s): NO PRIOR SURGICAL PROCEDURES Past Psychological History: PTSD Smoking Status: Current every day smoker Past Alcohol Use History: None Reported Past Drug Use History: Marijuana - Past Family History Mother Family Medical History: No Reported History General Exam Limitations: no limitations General appearance: alert, in no apparent distress Head exam: Present: atraumatic, normocephalic, normal inspection Eye exam: Present: normal appearance, PERRL, EOMI, conjunctival injection (Left eye), other (Mild chemosis. small yellow discharge). Absent: scleral icterus, nystagmus, periorbital swelling, periorbital tenderness Pupils: Present: normal accommodation. Absent: other (no eye entrapment.) ENT exam: Present: normal exam, normal oropharynx, mucous membranes moist, TM's normal bilaterally, normal external ear exam Neck exam: Present: normal inspection, full ROM Respiratory exam: Present: normal lung sounds bilaterally Cardiovascular Exam: Present: regular rate, normal rhythm, normal heart sounds Extremities exam: Present: normal inspection, full ROM Back exam: Present: normal inspection, full ROM Neurological exam: Present: alert, oriented X3 Psychiatric exam: Present: normal affect, normal mood Skin exam: Present: warm, intact, normal color Course Vital Signs 07/03/19 18:26 Temperature 98.7 F Pulse Rate 75 Respiratory 18 Rate Blood Pressure 139/84 O2 Sat by Pulse 97 Oximetry Medical Decision Making - Medical Decision Making Patient is a 44-year-old male presenting to emergency Department with a chief complaint of bilateral irritation. Patient had a sudden onset of itchiness on his left eye. Patient also said he developed some fluid in his left eye however it does not affect his vision. Patient denies pain with extraocular movements. Patient does report very mild periorbital swelling. On physical examination there is conjunctival injections with small yellow discharge. I suspect this to be bacterial conjunctivitis. Patient advised to avoid contact for about 24-48 hours due to the contagious behavior of the disease. Patient advised not to touch his other eye. Strict return parameters were discussed with patient is understanding and agreeable. Patient advised to follow-up with ophthalmology if symptoms are not improved. Case discussed physician. Disposition Clinical Impression: Conjunctivitis, left eye Disposition: HOME SELF-CARE Condition: Stable Instructions (If sedation given, give patient instructions): Eye Wash (Into the eye) Additional Instructions: Please see prescribe medication as directed. Please follow-up with ophthalmology if symptoms do not improve. Please return to emergency department if symptoms worsen. Prescriptions: Polymyxin B-Trimeth Sulf Ophth [Polytrim Opthalmic] 1 drops BOTH EYES Q4H #1 bottle Ketotifen 0.025% Ophth Soln [Zaditor] 1 drop BOTH EYES BID #1 bottle Is patient prescribed a controlled substance at d/c from ED?: No Referrals: Kahlil Westbrook MD [Primary Care Provider] - 1-2 days Jono Wright MD [STAFF PHYSICIAN] - 1-2 days Time of Disposition: 18:55
== END 2019-07-03 19:00 | disposition home or self-care (01) ==
LOC: EC 18:11
DX: H10.9 Unspecified conjunctivitis (principal); F17.200 Nicotine dependence, unspecified, uncomplicated
CPT/HCPCS: 99283

== ENCOUNTER → 2020-02-19 | Outpatient (CLI) | payer OTHER ==
[2020-02-19 16:28] LABS: Basophils % (A) 1 %; Eosinophils # (A) 0.1 k/uL (0-0.7); Eosinophils % (A) 1 %; HCT 47.9 % (39.0-53.0); HGB 16.3 gm/dL (13.0-17.5); Lymphocytes # (A) 2.2 k/uL (1.0-4.8); Lymphocytes % (A) 30 %; MCH 35.2 pg (25.0-35.0); MCHC 34.1 g/dL (31.0-37.0); MCV 103.1 fL (80.0-100.0); Macrocytosis Slight; Mean Platelet Volume 9.3; Monocytes # (A) 0.5 k/uL (0-1.0); Monocytes % (A) 7 %; Neutrophils # (A) 4.5 k/uL (1.3-7.7); Neutrophils % (A) 60 %; Platelet Count 175 k/uL (150-450); RBC 4.64 m/uL (4.30-5.90); RDW 12.4 % (11.5-15.5); WBC 7.4 k/uL (3.8-10.6)
[2020-02-19 23:52] LABS: African American GFR (CKD) 106.4 (60.0-200.0); Albumin 4.1 g/dL (3.80-4.90); Albumin/Globulin Ratio 1.64 (1.60-3.17); Anion Gap 8.6 mmol/L (4.00-12.00); Calcium 8.7 mg/dL (8.7-10.3); Carbon Dioxide 26.4 mmol/L (21.6-31.8); Globulin 2.5 g/dL (1.6-3.3); Non-African American GFR(CKD) 91.8 (60.0-200.0); Potassium 3.7 mmol/L (3.5-5.5); Total Bilirubin 0.6 mg/dL (0.2-1.2); Total Protein 6.6 g/dL (6.2-8.2)
[2020-02-20 01:14] LABS: Hemoglobin A1C 4.9 % (4.0-6.0)
[2020-02-20 23:10] LABS: Folate, Serum 16.8 ng/mL
[2020-02-20 23:13] LABS: Hepatitis C IgG Antibody Reactive (Non-Reactive)
[2020-02-20 23:14] LABS: Hepatitis A Antibody IgM Non-Reactive (Non-Reactive); Hepatitis B Core IgM Non-Reactive (Non-Reactive); Hepatitis B Surface Antigen Non-Reactive (Non-Reactive)
== END | disposition home or self-care (01) ==
LOC: LABWHC1 13:33
PROVIDERS: ATTEND Internal Medicine
DX: E16.2 Hypoglycemia, unspecified (principal); R42 Dizziness and giddiness; E86.0 Dehydration
CPT/HCPCS: 36415; 80053; 80074; 82607; 82746; 83036; 85025

== ENCOUNTER 2020-02-24 20:04 | Emergency (ER) | payer OTHER ==
[2020-02-24 20:13] VITALS: BP 127/88; PULSE 78; RESP 16; TEMP 98.1
[2020-02-24] MEDS ORDERED: PROPARACAINE 0.5% OPHTH DROPS 15 ML BTL RIGHT EYE STA (20:15)
[2020-02-24] MEDS ORDERED: FLUORESCEIN STRIPS 1 MG STRIP RIGHT EYE ONE (20:25)
--- NOTE | 2020-02-24 20:49 | ED ---
Eye Problem HPI - General Chief complaint: Eye Problems Stated complaint: Eye pain Time Seen by Provider: 02/24/20 20:14 Source: patient, family Mode of arrival: ambulatory Limitations: no limitations - History of Present Illness Initial comments: Patient is a 44-year-old male presenting to the emergency Department with complaints of right eye irritation since last night. Patient states he was working and was very sweaty and went to wipe his right eyebrow when he felt something fall into his right eye. Patient states since then he has been feeling irritation in his right eye. He no longer sees anything in his right eye. He's been having some clear drainage from the eye as well. He denies wearing contacts. He denies changes in his vision, blurry vision. He has no further complaints at this time. - Related Data Previous Rx's Medication Instructions Recorded Docusate [Colace] 100 mg PO BID #30 capsule 07/02/19 Hydrocodone/Acetaminophen [[place] 1 tab PO Q4HR PRN 3 Days #18 tab 07/02/19 5-325] Levofloxacin [Levaquin] 500 mg PO DAILY #7 tab 07/02/19 Ketotifen 0.025% Ophth Soln 1 drop BOTH EYES BID #1 bottle 07/03/19 [Zaditor] Polymyxin B-Trimeth Sulf Ophth 1 drops BOTH EYES Q4H #1 bottle 07/03/19 [Polytrim Opthalmic] Erythromycin Ophth Oint [Romycin 1 applic RIGHT EYE QID 5 Days #1 02/24/20 Ophth Oint] tube Allergies Allergy/AdvReac Type Severity Reaction Status Date / Time No Known Allergies Allergy Verified 02/24/20 20:13 Review of Systems ROS Statement: Those systems with pertinent positive or pertinent negative responses have been documented in the HPI. ROS Other: All systems not noted in ROS Statement are negative. Past Medical History Past Medical History: No Reported History Additional Past Medical History / Comment(s): sciatic nerve problem. back injury. CHRONIC CONSTIPATION History of Any Multi-Drug Resistant Organisms: None Reported Past Surgical History: Appendectomy Additional Past Anesthesia/Blood Transfusion Reaction / Comment(s): NO PRIOR SURGICAL PROCEDURES Past Psychological History: PTSD Smoking Status: Current every day smoker Past Alcohol Use History: None Reported Past Drug Use History: Marijuana - Past Family History Mother Family Medical History: No Reported History General Exam - General Exam Comments Initial Comments: GENERAL: Well-appearing, well-nourished and in no acute distress. HEAD: Atraumatic, normocephalic. EYES: Pupils equal round and reactive to light, extraocular movements intact, sclera anicteric, conjunctiva are normal. Under fluorescein stain, there is a small abrasion at the 10 o'clock position on the cornea. ENT: TMs normal, nares patent, oropharynx clear without exudates. Moist mucous membranes. NECK: Normal range of motion, supple without lymphadenopathy or JVD. LUNGS: Breath sounds clear to auscultation bilaterally and equal. No wheezes rales or rhonchi. HEART: Regular rate and rhythm without murmurs, rubs or gallops. ABDOMEN: Soft, nontender, normoactive bowel sounds. No guarding, no rebound. No masses appreciated. : Deferred EXTREMITIES: Normal range of motion, no pitting or edema. No clubbing or cyanosis. NEUROLOGICAL: Normal speech, normal gait. PSYCH: Normal mood, normal affect. SKIN: Warm, Dry, normal turgor, no rashes or lesions noted. Limitations: no limitations Course Vital Signs 02/24/20 20:09 Temperature 98.1 F Pulse Rate 78 Respiratory 16 Rate Blood Pressure 127/88 O2 Sat by Pulse 99 Oximetry Medical Decision Making - Medical Decision Making Patient is a 44-year-old male presenting of right eye irritation since last night. Denies blurry vision. Eye exam with fluorescein stain reveals a corneal abrasion at the 10 o'clock position. No foreign body seen. Visual acuity normal. Patient will be started on erythromycin ointment. He will follow up with eye doctor if symptoms persist. He is stable for discharge. He is in agreement with this plan of care. Return parameters were discussed with the patient and he verbalized understanding. Disposition Clinical Impression: Corneal abrasion Disposition: HOME SELF-CARE Condition: Stable Instructions (If sedation given, give patient instructions): Corneal Abrasion (ED) Additional Instructions: Please return to the Emergency Department if symptoms worsen or any other concerns. Use antibiotic ointment as discussed. Follow-up with eye doctor if symptoms persist. Prescriptions: Erythromycin Ophth Oint [Romycin Ophth Oint] 1 applic RIGHT EYE QID 5 Days #1 tube Is patient prescribed a controlled substance at d/c from ED?: No Referrals: Kahlil Westbrook MD [Primary Care Provider] - 1-2 days
== END 2020-02-24 21:01 | disposition home or self-care (01) ==
LOC: EC 20:04
DX: S05.01XA Injury of conjunctiva and corneal abrasion without foreign body, right eye, initial encounter (principal); F17.200 Nicotine dependence, unspecified, uncomplicated; X58.XXXA Exposure to other specified factors, initial encounter; Y93.89 Activity, other specified; Y92.69 Other specified industrial and construction area as the place of occurrence of the external cause
CPT/HCPCS: 99283

== ENCOUNTER → 2020-04-14 | Outpatient (CLI) | payer BC, OTHER ==
--- NOTE | 2020-04-14 15:46 | XR ---
Lumbar spine HISTORY: Lump lower back, pain Reviews of the lumbar spine There is a slight spinal curvature. Multilevel spondylosis is present. Lumbar vertebral bodies show p reserved height and bone mineralization. Loss of disc height present at intervertebral levels. Sclero sis present in the posterior elements. IMPRESSION: Degenerative disc disease and facet arthropathy, mild spinal curvature.
== END | disposition home or self-care (01) ==
LOC: RADXRMAIN 15:03
PROVIDERS: ATTEND Internal Medicine
DX: M51.36 Other intervertebral disc degeneration, lumbar region (principal); M46.96 Unspecified inflammatory spondylopathy, lumbar region; M43.9 Deforming dorsopathy, unspecified
CPT/HCPCS: 72100

== ENCOUNTER 2020-05-26 16:00 | Emergency (ER) | payer BC, OTHER ==
[2020-05-26 16:13] VITALS: RESP 18
[2020-05-26] MEDS ORDERED: KETOROLAC 15 MG/ML 1 ML VIAL IM STA (16:22)
[2020-05-26] MEDS ORDERED: DIAZEPAM 5 MG/ML 2 ML INJ IM ONE (16:22)
--- NOTE | 2020-05-26 16:37 | ED ---
Back Pain HPI - General Chief Complaint: Back Pain/Injury Stated Complaint: Back pain Time Seen by Provider: 05/26/20 16:14 Source: patient Limitations: no limitations - History of Present Illness Initial Comments: 45-year-old male patient presents to the emergency department today for evaluation of mid low back pain. Patient states that he has had some mild pain to the region for the last year or so. Patient states over the last few days the pain has been getting much worse. States he is unable to bend or lift. States the pain is shooting up his back when he lifts anything heavy. He denies any radiating pain down his legs. Denies numbness or tingling to the lower extremities. Denies loss of bowel or bladder control or saddle anesthesia. He denies any fever or chills. Denies history of IV drug use. Denies any known injury. 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 Patient denies any recent rash, fever, chills, cough, shortness of breath, chest pain, abdominal pain, nausea, vomiting, diarrhea, constipation, dizziness, weakness, hematuria, dysuria, urinary urgency, urinary frequency, headache, visual changes, or any other complaints. - Related Data Previous Rx's Medication Instructions Recorded Docusate [Colace] 100 mg PO BID #30 capsule 07/02/19 Hydrocodone/Acetaminophen [[place] 1 tab PO Q4HR PRN 3 Days #18 tab 07/02/19 5-325] Levofloxacin [Levaquin] 500 mg PO DAILY #7 tab 07/02/19 Ketotifen 0.025% Ophth Soln 1 drop BOTH EYES BID #1 bottle 07/03/19 [Zaditor] Polymyxin B-Trimeth Sulf Ophth 1 drops BOTH EYES Q4H #1 bottle 07/03/19 [Polytrim Opthalmic] Erythromycin Ophth Oint [Romycin 1 applic RIGHT EYE QID 5 Days #1 02/24/20 Ophth Oint] tube Lidocaine 5% Patch [Lidoderm] 1 patch TOPICAL DAILY #30 patch 05/26/20 Naproxen [EC-Naprosyn] 500 mg PO BID PRN #30 tablet. 05/26/20 Allergies Allergy/AdvReac Type Severity Reaction Status Date / Time No Known Allergies Allergy Verified 09/10/20 16:13 Review of Systems ROS Statement: Those systems with pertinent positive or pertinent negative responses have been documented in the HPI. ROS Other: All systems not noted in ROS Statement are negative. Past Medical History Past Medical History: No Reported History Additional Past Medical History / Comment(s): sciatic nerve problem. back injury. CHRONIC CONSTIPATION History of Any Multi-Drug Resistant Organisms: None Reported Past Surgical History: Appendectomy Additional Past Anesthesia/Blood Transfusion Reaction / Comment(s): NO PRIOR SURGICAL PROCEDURES Past Psychological History: PTSD Smoking Status: Current every day smoker Past Alcohol Use History: None Reported Past Drug Use History: Marijuana - Past Family History Mother Family Medical History: No Reported History General Exam Limitations: no limitations General appearance: alert, in no apparent distress, other (This is a well- developed, well-nourished adult male patient in no acute distress. Vital signs upon presentation are temperature 98.2F, pulse 66, respirations 18, blood pressure 118/90, pulse ox 100% on room air.) Respiratory exam: Present: normal lung sounds bilaterally. Absent: respiratory distress, wheezes, rales, rhonchi, stridor Cardiovascular Exam: Present: regular rate, normal rhythm, normal heart sounds. Absent: systolic murmur, diastolic murmur, rubs, gallop, clicks GI/Abdominal exam: Present: soft, normal bowel sounds. Absent: distended, tenderness, guarding, rebound, rigid Extremities exam: Present: normal inspection, full ROM, normal capillary refill, other (Skin to the lower extremities is pink, warm, dry. Cap refills less than 3 seconds. Pedal and posttibial pulses are 2+ and equal bilaterally. There is no edema.). Absent: tenderness, pedal edema, joint swelling, calf tenderness Back exam: Present: normal inspection, vertebral tenderness (Lower lumbar tenderness.) Neurological exam: Present: alert, oriented X3, CN II-XII intact Psychiatric exam: Present: normal affect, normal mood Skin exam: Present: warm, dry, intact, normal color. Absent: rash Course Vital Signs 05/26/20 05/26/20 16:11 18:08 Temperature 98.2 F 98.3 F Pulse Rate 66 78 Respiratory 18 18 Rate Blood Pressure 118/90 146/88 O2 Sat by Pulse 100 99 Oximetry Medical Decision Making - Medical Decision Making 45-year-old male patient presents to the emergency department today for evaluation of low back pain. Physical examination did reveal tenderness over the lumbar spine and the paraspinal regions. Skin appeared normal. CT of the lumbar spine was obtained and showed no acute abnormalities. Patient was given pain medication here in the department. Upon reevaluation he is resting comfortably but states this pain is not improved. He is given an additional dose. We did discuss results of the CT. Of his symptoms are consistent with mechanical low back pain. He'll be discharged to follow up with Dr. Comer. He is instructed follow up with his primary care physician for recheck in 1-2 days. Return parameters were discussed in detail. He verbalizes understanding and agrees with this plan. - Radiology Data Radiology results: report reviewed, image reviewed CT lumbar spine without contrast was obtained. Report was reviewed in its entirety. Impression by Dr. Ludwig shows mild spurring in the lumbar spine. No fracture. Normal disc spaces. No evidence of a soft tissue mass. No evidence of any significant soft tissue swelling over the lumbar spine. Disposition Clinical Impression: Back pain Disposition: HOME SELF-CARE Condition: Good Instructions (If sedation given, give patient instructions): Back Pain (ED), Lower Back Exercises (ED) Additional Instructions: Follow-up with your primary care physician for recheck in 1-2 days. Follow-up with the [facility] operations specialist for further evaluation. Return to the emergency department immediately for any new, worsening, or concerning symptoms. Prescriptions: Naproxen [EC-Naprosyn] 500 mg PO BID PRN #30 tablet.dr MICHEL Reason: Pain Lidocaine 5% Patch [Lidoderm] 1 patch TOPICAL DAILY #30 patch Is patient prescribed a controlled substance at d/c from ED?: No Referrals: Kahlil Westbrook MD [Primary Care Provider] - 1-2 days Andrew Comer DO [Doctor of Osteopathic Medicine] - 1-2 days Time of Disposition: 17:41
[2020-05-26] MEDS ORDERED: LIDOCAINE 5% PATCH TOPICAL SCH (17:00)
--- NOTE | 2020-05-26 17:29 | CT ---
EXAMINATION TYPE: CT lumbar spine wo con DATE OF EXAM: 05/26/2020 COMPARISON: None HISTORY: Low back pain. Swelling over spine. CT DLP: 944 mGycm Automated exposure control for dose reduction was used. Images were obtained from the level of T12-S2 vertebra with no contrast. The lumbar vertebra have normal alignment. Disc spaces are normal. Posterior elements are intact. Fac et joints are intact. There is no compression fracture. There is no lumbar paraspinal mass. Sacroilia c joints are intact. IMPRESSION: Minor spurring in the lumbar spine. No fracture. Normal disc spaces. No evidence of a soft tissue mas s. No evidence of any significant soft tissue swelling over the lumbar spine.
[2020-05-26] MEDS ORDERED: MORPHINE SULFATE 4 MG/ML SYRINGE IM STA (17:40)
[2020-05-26] MEDS ORDERED: ACET/COD 300 MG/30 MG STARTER PACK 6 TAB BTL PO STA (17:40)
[2020-05-26 18:09] VITALS: BP 146/88; PULSE 78; TEMP 98.3
== END 2020-05-26 18:09 | disposition home or self-care (01) ==
LOC: EC 16:00
DX: M54.5 Low back pain (principal); F17.200 Nicotine dependence, unspecified, uncomplicated
CPT/HCPCS: 72131; 99283; 96372 ×3; J2270; J3360; J1885

== ENCOUNTER 2020-05-30 12:03 | Emergency (ER) | payer BC, OTHER ==
[2020-05-30 12:33] VITALS: RESP 18
[2020-05-30] MEDS ORDERED: SODIUM CHLORIDE 0.9% 1,000 ML IV STA (12:47)
--- NOTE | 2020-05-30 13:05 | ED ---
General Adult HPI - General Chief complaint: Eye Problems Stated complaint: blurred vision Time Seen by Provider: 05/30/20 12:36 Source: patient, RN notes reviewed, old records reviewed Mode of arrival: ambulatory Limitations: no limitations - History of Present Illness Initial comments: 45-year-old male presents for an episode of lightheadedness, shaking sensation, and blurred vision. Patient states he had eaten breakfast and went to work. He did not feel right while at work. He denies specific pain complaints. Denied fever. Denied chest pain or dyspnea. He states he felt lightheaded and noticed that his vision was quite blurry. On the way to the emergency department he was able to rest and states that his vision has returned to normal. He feels less lightheaded but still does not feel 100%. He felt like he might have passed out. He denied focal numbness or weakness. Denied headache. Denied nausea vomiting. - Related Data Previous Rx's Medication Instructions Recorded Docusate [Colace] 100 mg PO BID #30 capsule 07/02/19 Hydrocodone/Acetaminophen [[place] 1 tab PO Q4HR PRN 3 Days #18 tab 07/02/19 5-325] Levofloxacin [Levaquin] 500 mg PO DAILY #7 tab 07/02/19 Ketotifen 0.025% Ophth Soln 1 drop BOTH EYES BID #1 bottle 07/03/19 [Zaditor] Polymyxin B-Trimeth Sulf Ophth 1 drops BOTH EYES Q4H #1 bottle 07/03/19 [Polytrim Opthalmic] Erythromycin Ophth Oint [Romycin 1 applic RIGHT EYE QID 5 Days #1 02/24/20 Ophth Oint] tube Lidocaine 5% Patch [Lidoderm] 1 patch TOPICAL DAILY #30 patch 05/26/20 Naproxen [EC-Naprosyn] 500 mg PO BID PRN #30 tablet. 05/26/20 Allergies Allergy/AdvReac Type Severity Reaction Status Date / Time No Known Allergies Allergy Verified 05/30/20 12:33 Review of Systems ROS Statement: Those systems with pertinent positive or pertinent negative responses have been documented in the HPI. ROS Other: All systems not noted in ROS Statement are negative. Past Medical History Past Medical History: No Reported History Additional Past Medical History / Comment(s): sciatic nerve problem. back injury. CHRONIC CONSTIPATION History of Any Multi-Drug Resistant Organisms: None Reported Past Surgical History: Appendectomy Additional Past Anesthesia/Blood Transfusion Reaction / Comment(s): NO PRIOR SURGICAL PROCEDURES Past Psychological History: PTSD Smoking Status: Current every day smoker Past Alcohol Use History: None Reported Past Drug Use History: Marijuana - Past Family History Mother Family Medical History: No Reported History General Exam Limitations: no limitations General appearance: alert, in no apparent distress Head exam: Present: atraumatic, normocephalic Eye exam: Present: normal appearance, PERRL ENT exam: Present: mucous membranes dry Neck exam: Present: normal inspection Respiratory exam: Present: normal lung sounds bilaterally. Absent: respiratory distress, wheezes Cardiovascular Exam: Present: regular rate, normal rhythm GI/Abdominal exam: Present: soft. Absent: distended, tenderness, guarding Extremities exam: Present: normal inspection, normal capillary refill. Absent: pedal edema, joint swelling Neurological exam: Present: alert, oriented X3, CN II-XII intact. Absent: motor sensory deficit Psychiatric exam: Present: normal affect, normal mood Skin exam: Present: warm, dry, intact. Absent: cyanosis, diaphoretic Course Vital Signs 05/30/20 12:29 Temperature 98.1 F Pulse Rate 82 Respiratory 18 Rate Blood Pressure 121/78 O2 Sat by Pulse 99 Oximetry EKG Findings - EKG Comments: EKG Findings:: EKG: Sinus bradycardia, rate of 56, IA interval 182, QRS duration 102, QTC 432, no ST segment elevation Medical Decision Making - Medical Decision Making 45-year-old male presenting with lightheadedness, blurred vision, symptoms resolved at the time my evaluation, he has stable vitals, he has a nonfocal neurologic exam. EKG is sinus rhythm. I did initiate a workup for this patient, including CBC, CMP, urinalysis, troponin, this is all within normal limits. After 1 L of IV fluid patient states he feels completely normal, no further vision issues. No lightheadedness. I suspect this may been related to dehydration and near-syncope. He will monitor symptoms at home, he will return with worsening or changing symptoms and a new issues. - Lab Data Result diagrams: 05/30/20 13:02 05/30/20 13:02 Lab Results 05/30/20 05/30/20 05/30/20 Range/Units 13:02 13:02 13:02 WBC 7.5 (3.8-10.6) k/uL RBC 4.45 (4.30-5.90) m/uL Hgb 15.1 (13.0-17.5) gm/dL Hct 45.0 (39.0-53.0) % MCV 101.1 H (80.0-100.0) fL MCH 34.0 (25.0-35.0) pg MCHC 33.6 (31.0-37.0) g/dL RDW 12.3 (11.5-15.5) % Plt Count 162 (150-450) k/uL Neutrophils % 71 % Lymphocytes % 19 % Monocytes % 7 % Eosinophils % 1 % Basophils % 1 % Neutrophils # 5.4 (1.3-7.7) k/uL Lymphocytes # 1.4 (1.0-4.8) k/uL Monocytes # 0.5 (0-1.0) k/uL Eosinophils # 0.1 (0-0.7) k/uL Basophils # 0.1 (0-0.2) k/uL PT 10.5 (9.0-12.0) sec INR 1.0 (<1.2) APTT 26.0 (22.0-30.0) sec Sodium (137-145) mmol/L Potassium (3.5-5.1) mmol/L Chloride (98-107) mmol/L Carbon Dioxide (22-30) mmol/L Anion Gap mmol/L BUN (9-20) mg/dL Creatinine (0.66-1.25) mg/dL Est GFR (CKD-EPI)AfAm (>60 ml/min/1.73 sqM) Est GFR (CKD-EPI)NonAf (>60 ml/min/1.73 sqM) Glucose (74-99) mg/dL Plasma Lactic Acid Yvon (0.7-2.0) mmol/L Calcium (8.4-10.2) mg/dL Magnesium (1.6-2.3) mg/dL Total Bilirubin (0.2-1.3) mg/dL AST (17-59) U/L ALT (4-49) U/L Alkaline Phosphatase (38-126) U/L Troponin I (0.000-0.034) ng/mL Total Protein (6.3-8.2) g/dL Albumin (3.5-5.0) g/dL Urine Color Yellow Urine Appearance Clear (Clear) Urine pH 5.5 (5.0-8.0) Ur Specific [place] 1.024 (1.001-1.035) Urine Protein Trace H (Negative) Urine Glucose (UA) Negative (Negative) Urine Ketones Negative (Negative) Urine Blood Negative (Negative) Urine Nitrite Negative (Negative) Urine Bilirubin 1+ H (Negative) Urine Urobilinogen <2.0 (<2.0) mg/dL Ur Leukocyte Esterase Negative (Negative) 05/30/20 05/30/20 05/30/20 Range/Units 13:02 13:02 13:02 WBC (3.8-10.6) k/uL RBC (4.30-5.90) m/uL Hgb (13.0-17.5) gm/dL Hct (39.0-53.0) % MCV (80.0-100.0) fL MCH (25.0-35.0) pg MCHC (31.0-37.0) g/dL RDW (11.5-15.5) % Plt Count (150-450) k/uL Neutrophils % % Lymphocytes % % Monocytes % % Eosinophils % % Basophils % % Neutrophils # (1.3-7.7) k/uL Lymphocytes # (1.0-4.8) k/uL Monocytes # (0-1.0) k/uL Eosinophils # (0-0.7) k/uL Basophils # (0-0.2) k/uL PT (9.0-12.0) sec INR (<1.2) APTT (22.0-30.0) sec Sodium 139 (137-145) mmol/L Potassium 4.1 (3.5-5.1) mmol/L Chloride 108 H (98-107) mmol/L Carbon Dioxide 26 (22-30) mmol/L Anion Gap 5 mmol/L BUN 10 (9-20) mg/dL Creatinine 0.90 (0.66-1.25) mg/dL Est GFR (CKD-EPI)AfAm >90 (>60 ml/min/1.73 sqM) Est GFR (CKD-EPI)NonAf >90 (>60 ml/min/1.73 sqM) Glucose 101 H (74-99) mg/dL Plasma Lactic Acid Yvon 0.9 (0.7-2.0) mmol/L Calcium 9.2 (8.4-10.2) mg/dL Magnesium 1.7 (1.6-2.3) mg/dL Total Bilirubin 0.6 (0.2-1.3) mg/dL AST 40 (17-59) U/L ALT 43 (4-49) U/L Alkaline Phosphatase 83 (38-126) U/L Troponin I <0.012 (0.000-0.034) ng/mL Total Protein 6.8 (6.3-8.2) g/dL Albumin 3.9 (3.5-5.0) g/dL Urine Color Urine Appearance (Clear) Urine pH (5.0-8.0) Ur Specific [place] (1.001-1.035) Urine Protein (Negative) Urine Glucose (UA) (Negative) Urine Ketones (Negative) Urine Blood (Negative) Urine Nitrite (Negative) Urine Bilirubin (Negative) Urine Urobilinogen (<2.0) mg/dL Ur Leukocyte Esterase (Negative) Disposition Clinical Impression: Near syncope, Dehydration Disposition: HOME SELF-CARE Condition: Good Instructions (If sedation given, give patient instructions): Dehydration (ED), Near Syncope (ED) Is patient prescribed a controlled substance at d/c from ED?: No Referrals: Kahlil Westbrook MD [Primary Care Provider] - 1-2 days Time of Disposition: 14:21
[2020-05-30 13:17] LABS: Basophils # (A) 0.1 k/uL (0-0.2); Basophils % (A) 1 %; Eosinophils # (A) 0.1 k/uL (0-0.7); Eosinophils % (A) 1 %; HGB 15.1 gm/dL (13.0-17.5); Lymphocytes # (A) 1.4 k/uL (1.0-4.8); Lymphocytes % (A) 19 %; MCHC 33.6 g/dL (31.0-37.0); MCV 101.1 fL (80.0-100.0); Mean Platelet Volume 8.7; Monocytes # (A) 0.5 k/uL (0-1.0); Monocytes % (A) 7 %; Neutrophils # (A) 5.4 k/uL (1.3-7.7); Neutrophils % (A) 71 %; Platelet Count 162 k/uL (150-450); RBC 4.45 m/uL (4.30-5.90); RDW 12.3 % (11.5-15.5); WBC 7.5 k/uL (3.8-10.6)
[2020-05-30 13:24] LABS: ALT 43 U/L (4-49); AST 40 U/L (17-59); African American GFR (CKD) >90 (>60 ml/min/1.73 sqM); Albumin 3.9 g/dL (3.5-5.0); Alkaline Phosphatase 83 U/L (38-126); Anion Gap 5 mmol/L; Blood Urea Nitrogen 10 mg/dL (9-20); Calcium 9.2 mg/dL (8.4-10.2); Carbon Dioxide 26 mmol/L (22-30); Chloride 108 mmol/L (98-107); Glucose 101 mg/dL (74-99); Magnesium 1.7 mg/dL (1.6-2.3); Non-African American GFR(CKD) >90 (>60 ml/min/1.73 sqM); Potassium 4.1 mmol/L (3.5-5.1); Prothrombin Time 10.5 sec (9.0-12.0); Sodium 139 mmol/L (137-145); Total Bilirubin 0.6 mg/dL (0.2-1.3); Total Protein 6.8 g/dL (6.3-8.2)
--- NOTE | 2020-05-30 13:29 | XR ---
EXAMINATION TYPE: XR chest 2V DATE OF EXAM: 05/30/2020 COMPARISON: Chest x-ray December 10, 2018 HISTORY: Blurred vision and weakness. TECHNIQUE: Frontal and lateral views of the chest are obtained. FINDINGS: There is no new suspicious focal air space opacity, pleural effusion, or pneumothorax seen . The cardiac silhouette size remains within normal limits. The osseous structures are intact. Ove rlying EKG leads are present. IMPRESSION: No acute cardiopulmonary process. No significant change from prior.
[2020-05-30 13:54] LABS: Appearance,Urine Clear (Clear); Bilirubin,Urine 1+ (Negative); Blood,Urine Negative (Negative); Color,Urine Yellow; Glucose,Urine (UA) Negative (Negative); Ketones,Urine Negative (Negative); Leukocyte Esterase,Urine Negative (Negative); Nitrite,Urine Negative (Negative); PH, Urine 5.5 (5.0-8.0); Protein,Urine Trace (Negative); Specific Gravity,Urine 1.024 (1.001-1.035); Urobilinogen,Urine <2.0 mg/dL (<2.0)
[2020-05-30 14:38] VITALS: BP 145/82; PULSE 55; TEMP 98
== END 2020-05-30 14:38 | disposition home or self-care (01) ==
LOC: EC 12:03
DX: E86.0 Dehydration (principal); R55 Syncope and collapse; F17.200 Nicotine dependence, unspecified, uncomplicated
CPT/HCPCS: 36415; 71046; 80053; 81003; 83605; 83735; 84484; 85025; 85610; 85730; 93005; 96360; 99284

== ENCOUNTER 2021-07-19 12:29 | Emergency (ER) | payer BC, OTHER ==
[2021-07-19 12:54] VITALS: BP 137/90; PULSE 63; RESP 20; TEMP 98.3
[2021-07-19] MEDS ORDERED: KETOROLAC 15 MG/ML 1 ML VIAL IM STA (14:03)
[2021-07-19] MEDS ORDERED: HYDROmorphone 1 MG/ML 1 ML SYRINGE IM STA (14:03)
--- NOTE | 2021-07-19 14:08 | ED ---
General Adult HPI - General Chief complaint: Extremity Problem,Nontraumatic Stated complaint: Left arm and leg pain Time Seen by Provider: 07/19/21 13:47 Source: patient, RN notes reviewed Mode of arrival: wheelchair Limitations: no limitations - History of Present Illness Initial comments: Patient is a pleasant 46-year-old male presenting to the emergency Department with sciatic and left arm pain. Patient has chronic sciatic pain, approximately 4 times per year and does get very severe. Patient also has chronic neck pain. Patient has some discomfort of his left arm. No chest pain or back pain. No dyspnea. No weakness or loss of sensation. Discomfort of the arm feels similar to his leg pain. No weakness or loss of sensation. No incontinence or retention of bowel or bladder. - Related Data Previous Rx's Medication Instructions Recorded Docusate [Colace] 100 mg PO BID #30 capsule 07/02/19 Hydrocodone/Acetaminophen [[place] 1 tab PO Q4HR PRN 3 Days #18 tab 07/02/19 5-325] Levofloxacin [Levaquin] 500 mg PO DAILY #7 tab 07/02/19 Ketotifen 0.025% Ophth Soln 1 drop BOTH EYES BID #1 bottle 07/03/19 [Zaditor] Polymyxin B-Trimeth Sulf Ophth 1 drops BOTH EYES Q4H #1 bottle 07/03/19 [Polytrim Opthalmic] Erythromycin Ophth Oint [Romycin 1 applic RIGHT EYE QID 5 Days #1 02/24/20 Ophth Oint] tube Lidocaine 5% Patch [Lidoderm] 1 patch TOPICAL DAILY #30 patch 05/26/20 Naproxen [EC-Naprosyn] 500 mg PO BID PRN #30 tablet. 05/26/20 Cyclobenzaprine [Flexeril] 10 mg PO TID PRN #12 tablet 07/19/21 predniSONE [Deltasone] 20 mg PO BID #10 tab 07/19/21 Allergies Allergy/AdvReac Type Severity Reaction Status Date / Time No Known Allergies Allergy Verified 07/19/21 12:52 Review of Systems ROS Statement: Those systems with pertinent positive or pertinent negative responses have been documented in the HPI. ROS Other: All systems not noted in ROS Statement are negative. Constitutional: Denies: fever Eyes: Denies: eye pain ENT: Denies: ear pain Respiratory: Denies: cough, dyspnea Cardiovascular: Denies: chest pain Endocrine: Denies: fatigue Gastrointestinal: Denies: abdominal pain Musculoskeletal: Reports: as per HPI, back pain Neurological: Denies: weakness Past Medical History Past Medical History: No Reported History Additional Past Medical History / Comment(s): sciatic nerve problem. back injury. CHRONIC CONSTIPATION History of Any Multi-Drug Resistant Organisms: None Reported Past Surgical History: Appendectomy Additional Past Anesthesia/Blood Transfusion Reaction / Comment(s): NO PRIOR SURGICAL PROCEDURES Past Psychological History: PTSD Smoking Status: Current every day smoker Past Alcohol Use History: None Reported Past Drug Use History: Marijuana - Past Family History Mother Family Medical History: No Reported History General Exam Limitations: no limitations General appearance: alert, in no apparent distress Head exam: Present: normocephalic Eye exam: Present: normal appearance Neck exam: Present: tenderness (Mild tenderness mid cervical spine) Respiratory exam: Present: normal lung sounds bilaterally Cardiovascular Exam: Present: regular rate, normal rhythm Expanded Peripheral pulses: 2+: Radial (R), Radial (L), Dorsalis Pedis (R), Dorsalis Pedis (L) GI/Abdominal exam: Present: soft. Absent: tenderness Extremities exam: Absent: tenderness Back exam: Present: tenderness (Moderate tenderness left sacroiliac) Neurological exam: Absent: motor sensory deficit Expanded Sensory exam: Upper Extremity Light Touch: Normal, Lower Extremity Light Touch: Normal Motor strength exam: RUE: 5, LUE: 5, RLE: 5, LLE: 5 Psychiatric exam: Present: normal affect, normal mood Skin exam: Present: normal color Course Vital Signs 07/19/21 12:52 Temperature 98.3 F Pulse Rate 63 Respiratory 20 Rate Blood Pressure 137/90 O2 Sat by Pulse 98 Oximetry Disposition Clinical Impression: Sciatic leg pain Disposition: HOME SELF-CARE Condition: Stable Instructions (If sedation given, give patient instructions): Sciatica (ED), Cervical Radiculopathy (ED), Neck Pain (ED) Additional Instructions: Please do follow-up to primary care physician in the next day or 2 for recheck. Please also follow-up back doctor. Return for increased pain, weakness, loss of sensation, chest pain or shortness of breath, worsening or changing symptoms or other concerns. Her prescription for muscle relaxers has been sent to your pharmacy. Prescriptions: predniSONE [Deltasone] 20 mg PO BID #10 tab Cyclobenzaprine [Flexeril] 10 mg PO TID PRN #12 tablet PRN Reason: Pain Is patient prescribed a controlled substance at d/c from ED?: No Referrals: Kahlil Westbrook MD [Primary Care Provider] - 1-2 days Yonis Del Valle DO [Doctor of Osteopathic Medicine] - 1-2 days Time of Disposition: 14:07
== END 2021-07-19 15:02 | disposition home or self-care (01) ==
LOC: EC 12:29
DX: M54.32 Sciatica, left side (principal); M79.605 Pain in left leg; G89.29 Other chronic pain; F17.200 Nicotine dependence, unspecified, uncomplicated; Z90.49 Acquired absence of other specified parts of digestive tract
CPT/HCPCS: 99283; 96372 ×2; J1170; J1885

== ENCOUNTER 2021-07-26 21:37 | Emergency (ER) | payer OTHER ==
[2021-07-26] MEDS ORDERED: SODIUM CHLORIDE 0.9% 1,000 ML IV STA (23:04)
[2021-07-26] MEDS ORDERED: ONDANSETRON 4 MG/2 ML VIAL IVP STA (23:04)
[2021-07-27 00:03] VITALS: BP 140/78; PULSE 63; RESP 17; TEMP 97.5
[2021-07-27 00:03] LABS: Basophils % (A) 1 %; Eosinophils % (A) 1 %; HCT 48.6 % (39.0-53.0); HGB 17.1 gm/dL (13.0-17.5); Lymphocytes # (A) 1.4 k/uL (1.0-4.8); Lymphocytes % (A) 31 %; MCH 35.5 pg (25.0-35.0); MCHC 35.1 g/dL (31.0-37.0); Mean Platelet Volume 9.9; Monocytes # (A) 0.4 k/uL (0-1.0); Monocytes % (A) 9 %; Neutrophils # (A) 2.6 k/uL (1.3-7.7); Neutrophils % (A) 58 %; Platelet Count 107 k/uL (150-450); RBC 4.82 m/uL (4.30-5.90); RDW 12.8 % (11.5-15.5); WBC 4.6 k/uL (3.8-10.6)
[2021-07-27 00:11] LABS: ALT 88 U/L (4-49); African American GFR (CKD) >90 (>60 ml/min/1.73 sqM); Albumin 4.2 g/dL (3.5-5.0); Amylase 61 U/L (30-110); Anion Gap 8 mmol/L; Blood Urea Nitrogen 12 mg/dL (9-20); Calcium 8.6 mg/dL (8.4-10.2); Carbon Dioxide 22 mmol/L (22-30); Chloride 107 mmol/L (98-107); Glucose 108 mg/dL (74-99); Lipase 91 U/L (23-300); Non-African American GFR(CKD) >90 (>60 ml/min/1.73 sqM); Sodium 137 mmol/L (137-145); Total Bilirubin 0.9 mg/dL (0.2-1.3); Total Protein 7.7 g/dL (6.3-8.2)
[2021-07-27 00:16] LABS: Appearance,Urine Clear (Clear); Bilirubin,Urine Negative (Negative); Blood,Urine Negative (Negative); Color,Urine Yellow; Glucose,Urine (UA) Negative (Negative); Ketones,Urine Negative (Negative); Leukocyte Esterase,Urine Negative (Negative); Nitrite,Urine Negative (Negative); Protein,Urine Trace (Negative); Specific Gravity,Urine 1.036 (1.001-1.035)
[2021-07-27] MEDS ORDERED: METOCLOPRAMIDE 5 MG/ML 2 ML VIAL IVP STA (00:40)
[2021-07-27] MEDS ORDERED: KETOROLAC 15 MG/ML 1 ML VIAL IVP STA (00:40)
[2021-07-27] MEDS ORDERED: diphenhydrAMINE 50 MG/ML 1 ML VIAL IVP STA (00:40)
[2021-07-27] MEDS ORDERED: ACETAMINOPHEN TAB 500 MG TAB PO STA (00:42)
[2021-07-27] MEDS ORDERED: SODIUM CHLORIDE 0.9% 50 ML IVPB ONE (00:45)
--- NOTE | 2021-07-27 00:51 | ED ---
General Adult HPI - General Chief complaint: Nausea/Vomiting/Diarrhea Stated complaint: vomiting Time Seen by Provider: 07/26/21 22:53 Source: patient, RN notes reviewed Mode of arrival: ambulatory Limitations: no limitations - History of Present Illness Initial comments: 46-year-old male presents to the emergency room for a chief complaint of nausea vomiting. Patient has had nausea and vomiting for the past couple days. Patient states he is not able to keep much down. Patient denies fevers but does admit to body aches. Patient denies any abdominal pain.Patient has no other complaints at this time including shortness of breath, chest pain, abdominal pain, nausea or vomiting, headache, or visual changes. - Related Data Previous Rx's Medication Instructions Recorded Docusate [Colace] 100 mg PO BID #30 capsule 07/02/19 Hydrocodone/Acetaminophen [[place] 1 tab PO Q4HR PRN 3 Days #18 tab 07/02/19 5-325] Levofloxacin [Levaquin] 500 mg PO DAILY #7 tab 07/02/19 Ketotifen 0.025% Ophth Soln 1 drop BOTH EYES BID #1 bottle 07/03/19 [Zaditor] Polymyxin B-Trimeth Sulf Ophth 1 drops BOTH EYES Q4H #1 bottle 07/03/19 [Polytrim Opthalmic] Erythromycin Ophth Oint [Romycin 1 applic RIGHT EYE QID 5 Days #1 02/24/20 Ophth Oint] tube Lidocaine 5% Patch [Lidoderm] 1 patch TOPICAL DAILY #30 patch 05/26/20 Naproxen [EC-Naprosyn] 500 mg PO BID PRN #30 tablet. 05/26/20 Cyclobenzaprine [Flexeril] 10 mg PO TID PRN #12 tablet 07/19/21 predniSONE [Deltasone] 20 mg PO BID #10 tab 07/19/21 Ondansetron [Zofran ODT] 4 mg PO Q8HR PRN #15 tab 07/27/21 Allergies Allergy/AdvReac Type Severity Reaction Status Date / Time No Known Allergies Allergy Verified 07/26/21 22:21 Review of Systems ROS Statement: Those systems with pertinent positive or pertinent negative responses have been documented in the HPI. ROS Other: All systems not noted in ROS Statement are negative. Past Medical History Past Medical History: No Reported History Additional Past Medical History / Comment(s): sciatic nerve problem. back inju ry. CHRONIC CONSTIPATION History of Any Multi-Drug Resistant Organisms: None Reported Past Surgical History: Appendectomy Additional Past Anesthesia/Blood Transfusion Reaction / Comment(s): NO PRIOR SURGICAL PROCEDURES Past Psychological History: PTSD Smoking Status: Current every day smoker Past Alcohol Use History: None Reported Past Drug Use History: Marijuana - Past Family History Mother Family Medical History: No Reported History General Exam Limitations: no limitations General appearance: alert, in no apparent distress Head exam: Present: atraumatic Eye exam: Present: normal appearance, PERRL, EOMI. Absent: scleral icterus, conjunctival injection ENT exam: Present: normal exam, mucous membranes moist Neck exam: Present: normal inspection, full ROM. Absent: tenderness Respiratory exam: Present: normal lung sounds bilaterally. Absent: respiratory distress, wheezes Cardiovascular Exam: Present: regular rate, normal rhythm, normal heart sounds GI/Abdominal exam: Present: soft, normal bowel sounds. Absent: distended, tenderness Neurological exam: Present: alert Course Vital Signs 07/26/21 07/27/21 22:21 00:01 Temperature 97.8 F 97.5 F L Pulse Rate 59 L 63 Respiratory 20 17 Rate Blood Pressure 140/97 140/78 O2 Sat by Pulse 100 99 Oximetry Medical Decision Making - Medical Decision Making vitals are stable. Patient is nauseous on exam however no vomiting. CBC unremarkable. CMP unremarkable. Urinalysis does not show any evidence of infection. Ketones negative. He is positive for virus. Patient was treated with fluids and nausea medicine and antibodies. Patient will be discharged to follow up with primary care. He will return here for any worsening symptoms. - Lab Data Result diagrams: 07/26/21 23:25 07/26/21 23:25 Lab Results 07/26/21 07/26/21 07/26/21 Range/Units 22:25 23:25 23:25 WBC 4.6 (3.8-10.6) k/uL RBC 4.82 (4.30-5.90) m/uL Hgb 17.1 (13.0-17.5) gm/dL Hct 48.6 (39.0-53.0) % MCV 101.0 H (80.0-100.0) fL MCH 35.5 H (25.0-35.0) pg MCHC 35.1 (31.0-37.0) g/dL RDW 12.8 (11.5-15.5) % Plt Count 107 L (150-450) k/uL MPV 9.9 Neutrophils % 58 % Lymphocytes % 31 % Monocytes % 9 % Eosinophils % 1 % Basophils % 1 % Neutrophils # 2.6 (1.3-7.7) k/uL Lymphocytes # 1.4 (1.0-4.8) k/uL Monocytes # 0.4 (0-1.0) k/uL Eosinophils # 0.0 (0-0.7) k/uL Basophils # 0.0 (0-0.2) k/uL Sodium (137-145) mmol/L Potassium (3.5-5.1) mmol/L Chloride (98-107) mmol/L Carbon Dioxide (22-30) mmol/L Anion Gap mmol/L BUN (9-20) mg/dL Creatinine (0.66-1.25) mg/dL Est GFR (CKD-EPI)AfAm (>60 ml/min/1.73 sqM) Est GFR (CKD-EPI)NonAf (>60 ml/min/1.73 sqM) Glucose (74-99) mg/dL Calcium (8.4-10.2) mg/dL Total Bilirubin (0.2-1.3) mg/dL AST (17-59) U/L ALT (4-49) U/L Alkaline Phosphatase (38-126) U/L Total Protein (6.3-8.2) g/dL Albumin (3.5-5.0) g/dL Amylase (30-110) U/L Lipase (23-300) U/L Urine Color Yellow Urine Appearance Clear (Clear) Urine pH 6.0 (5.0-8.0) Ur Specific [place] 1.036 H (1.001-1.035) Urine Protein Trace H (Negative) Urine Glucose (UA) Negative (Negative) Urine Ketones Negative (Negative) Urine Blood Negative (Negative) Urine Nitrite Negative (Negative) Urine Bilirubin Negative (Negative) Urine Urobilinogen 2.0 (<2.0) mg/dL Ur Leukocyte Esterase Negative (Negative) Coronavirus (PCR) Detected A (Not Detectd) 07/26/21 Range/Units 23:25 WBC (3.8-10.6) k/uL RBC (4.30-5.90) m/uL Hgb (13.0-17.5) gm/dL Hct (39.0-53.0) % MCV (80.0-100.0) fL MCH (25.0-35.0) pg MCHC (31.0-37.0) g/dL RDW (11.5-15.5) % Plt Count (150-450) k/uL MPV Neutrophils % % Lymphocytes % % Monocytes % % Eosinophils % % Basophils % % Neutrophils # (1.3-7.7) k/uL Lymphocytes # (1.0-4.8) k/uL Monocytes # (0-1.0) k/uL Eosinophils # (0-0.7) k/uL Basophils # (0-0.2) k/uL Sodium 137 (137-145) mmol/L Potassium 4.1 (3.5-5.1) mmol/L Chloride 107 (98-107) mmol/L Carbon Dioxide 22 (22-30) mmol/L Anion Gap 8 mmol/L BUN 12 (9-20) mg/dL Creatinine 0.83 (0.66-1.25) mg/dL Est GFR (CKD-EPI)AfAm >90 (>60 ml/min/1.73 sqM) Est GFR (CKD-EPI)NonAf >90 (>60 ml/min/1.73 sqM) Glucose 108 H (74-99) mg/dL Calcium 8.6 (8.4-10.2) mg/dL Total Bilirubin 0.9 (0.2-1.3) mg/dL AST 88 H (17-59) U/L ALT 88 H (4-49) U/L Alkaline Phosphatase 99 (38-126) U/L Total Protein 7.7 (6.3-8.2) g/dL Albumin 4.2 (3.5-5.0) g/dL Amylase 61 (30-110) U/L Lipase 91 (23-300) U/L Urine Color Urine Appearance (Clear) Urine pH (5.0-8.0) Ur Specific [place] (1.001-1.035) Urine Protein (Negative) Urine Glucose (UA) (Negative) Urine Ketones (Negative) Urine Blood (Negative) Urine Nitrite (Negative) Urine Bilirubin (Negative) Urine Urobilinogen (<2.0) mg/dL Ur Leukocyte Esterase (Negative) Coronavirus (PCR) (Not Detectd) Disposition Clinical Impression: COVID, Nausea Disposition: HOME SELF-CARE Condition: Good Instructions (If sedation given, give patient instructions): Coronavirus Disease 2019 (COVID-19), Acute Nausea and Vomiting (ED) Additional Instructions: Quarantine for at least 10 days from symptom onset. Take antinausea medicine. Take motrin and tylenol alternating every 3 hours for body aches. Please follow up with primary care in 1-2 days. Return to the ER for any worsening symptoms. Prescriptions: Ondansetron [Zofran ODT] 4 mg PO Q8HR PRN #15 tab PRN Reason: Nausea Is patient prescribed a controlled substance at d/c from ED?: No Referrals: Kahlil Westbrook MD [Primary Care Provider] - 1-2 days Time of Disposition: 00:51
[2021-07-27 00:56] LABS: AST 88 U/L (17-59); Alkaline Phosphatase 99 U/L (38-126); Potassium 4.1 mmol/L (3.5-5.1)
[2021-07-27] MEDS ORDERED: CASIRIVIMAB/IMDEVIMAB (EUA) 1,200 MG in SODIUM CHLORIDE 0.9% 100 ML IVPB ONE (01:00)
== END 2021-07-27 02:46 | disposition home or self-care (01) ==
LOC: EC 21:37
DX: U07.1 COVID-19 (principal); F17.200 Nicotine dependence, unspecified, uncomplicated; F12.90 Cannabis use, unspecified, uncomplicated; Z79.899 Other long term (current) drug therapy; Z79.1 Long term (current) use of non-steroidal anti-inflammatories (NSAID)
CPT/HCPCS: 36415; 80053; 82150; 83690; 85025; 81003; 87635; 96365; 96375 ×3; 96361; 99284; J1200; J2765; J2405; J1885; Q0243

== ENCOUNTER 2022-09-13 10:20 | Emergency (ER) | payer OTHER ==
[2022-09-13 10:24] VITALS: BP 124/78; PULSE 92; RESP 18; TEMP 98.2
[2022-09-13] MEDS ORDERED: ONDANSETRON ODT 4 MG TAB PO STA (10:27)
[2022-09-13] MEDS ORDERED: IBUPROFEN 800 MG TAB PO STA (10:36)
--- NOTE | 2022-09-13 12:03 | ED ---
General Adult HPI - General Chief complaint: Upper Respiratory Infection Stated complaint: nausea, chills Time Seen by Provider: 09/13/22 10:27 Source: patient Mode of arrival: ambulatory Limitations: no limitations - History of Present Illness Initial comments: Patient is a 47-year-old male who presents to the emergency department with a chief complaint of nausea. Symptoms started last night. Patient also reports chills,dry cough, and body aches. No shortness of breath, chest pain, abdominal pain, vomiting, diarrhea. No sore throat or headache. No recent sick contacts. - Related Data Home Medications Medication Instructions Recorded Confirmed Ibuprofen [Motrin] 400 mg PO Q6H PRN 09/13/22 09/13/22 Previous Rx's Medication Instructions Recorded Acetaminophen Tab [Tylenol Tab] 500 mg PO Q4H PRN #30 tablet 09/13/22 Ondansetron Odt [Zofran Odt] 4 mg PO Q8HR PRN #10 tab 09/13/22 Allergies Allergy/AdvReac Type Severity Reaction Status Date / Time No Known Allergies Allergy Verified 09/13/22 11:44 Review of Systems ROS Statement: Those systems with pertinent positive or pertinent negative responses have been documented in the HPI. ROS Other: All systems not noted in ROS Statement are negative. Past Medical History Past Medical History: No Reported History Additional Past Medical History / Comment(s): sciatic nerve problem. back injury. CHRONIC CONSTIPATION History of Any Multi-Drug Resistant Organisms: None Reported Past Surgical History: Appendectomy Additional Past Anesthesia/Blood Transfusion Reaction / Comment(s): NO PRIOR SURGICAL PROCEDURES Past Psychological History: PTSD Smoking Status: Current every day smoker Past Alcohol Use History: Rare Past Drug Use History: Marijuana - Past Family History Mother Family Medical History: No Reported History General Exam Limitations: no limitations General appearance: alert, in no apparent distress Head exam: Present: atraumatic, normocephalic, normal inspection Eye exam: Present: normal appearance, PERRL, EOMI. Absent: scleral icterus, conjunctival injection, periorbital swelling Respiratory exam: Present: normal lung sounds bilaterally. Absent: respiratory distress, wheezes, rales, rhonchi, stridor Cardiovascular Exam: Present: regular rate, normal rhythm, normal heart sounds. Absent: systolic murmur, diastolic murmur, rubs, gallop, clicks GI/Abdominal exam: Present: soft, normal bowel sounds. Absent: distended, tenderness, guarding, rebound, rigid Neurological exam: Present: alert, oriented X3, CN II-XII intact Psychiatric exam: Present: normal affect, normal mood Skin exam: Present: warm, dry, intact, normal color. Absent: rash Course Vital Signs 09/13/22 10:21 Temperature 98.2 F Pulse Rate 92 Respiratory 18 Rate Blood Pressure 124/78 O2 Sat by Pulse 99 Oximetry Medical Decision Making - Medical Decision Making Was pt. sent in by a medical professional or institution? No Did you speak to anyone other than the patient for history? No Did you review nursing and triage notes? Yes, symptoms consistent with nursing and triage notes. Were old charts reviewed? No Differential Diagnosis? upper respiratory infection, gastroenteritis EKG interpreted by me (3pts min.)? NA X-rays interpreted by me (1pt min.)? NA CT interpreted by me (1pt min.)? NA U/S interpreted by me (1pt. min.)? NA What testing was considered but not performed? (CT, X-rays, U/S, labs)? Why? Considered chest x-ray however symptoms and vitals are not consistent with pneumonia. What meds were considered but not given? Why? None Did you discuss the management of the patient with other professionals? No Did you reconcile home meds? No, patient discharged. Was smoking cessation discussed for >3mins.? No Was critical care preformed (if so, how long)? No Were there social determinants of health that impacted care today? How? (Homelessness, low income, unemployed, alcoholism, drug addiction, transportation, low edu. Level, literacy, decrease access to med. care, intermediate, rehab)? No Was there de-escalation of care discussed even if they declined? (Discuss DNR or withdrawal of care, Hospice)? No What co-morbidities impacted this encounter? (DM, HTN, Smoking, COPD, CAD, Cancer, CVA, Hep., AIDS, mental health diagnosis, sleep apnea, morbid obesity)? None Was patient admitted / discharged? This is a 47-year-old male presenting with nausea and upper respiratory symptoms. The abdomen is soft and nontender. COVID-19, influenza, RSV are not detected. Patient given Zofran and Motrin. He was able to sleep comfortably after medication. His symptoms were markedly improved. Results discussed with patient. Conservative management discussed. Also will send patient home with Tylenol as requested and Zofran. Patient to follow-up with primary care provider. Undiagnosed new problem with uncertain prognosis? No Drug Therapy requiring intensive monitoring for toxicity (Heparin, Nitro, Insulin, Cardizem)? No Were any procedures done? No Diagnosis/symptom? nausea, chills, body aches Acute, or Chronic, or Acute on Chronic? Acute Uncomplicated (without systemic symptoms) or Complicated (systemic symptoms)? NA Side effects of treatment? No Exacerbation, Progression, or Severe Exacerbation] NA Poses a threat to life or bodily function? No Dr. Menon is my attending. - Lab Data Lab Results 09/13/22 Range/Units 10:28 Influenza Type A (PCR) Not Detected (Not Detectd) Influenza Type B (PCR) Not Detected (Not Detectd) RSV (PCR) Not Detected (Not Detectd) SARS-CoV-2 (PCR) Not Detected (Not Detectd) Disposition Clinical Impression: Upper respiratory tract infection Disposition: HOME SELF-CARE Condition: Good Instructions (If sedation given, give patient instructions): Upper Respiratory Infection (ED) Additional Instructions: Alternate Tylenol and Motrin every 3-4 hours for any fever and body aches.Next dose will be Tylenol at 1:45 pm. Take Zofran as directed. Increase fluid intake as tolerated. Follow-up with primary care provider in 1-2 days. Return to emergency department if you experience new, concerning, or worsening symptoms. Prescriptions: Acetaminophen Tab [Tylenol Tab] 500 mg PO Q4H PRN #30 tablet PRN Reason: pain Ondansetron Odt [Zofran Odt] 4 mg PO Q8HR PRN #10 tab PRN Reason: Nausea Is patient prescribed a controlled substance at d/c from ED?: No Referrals: Shena Saeed MD [Primary Care Provider] - 1-2 days
== END 2022-09-13 12:43 | disposition home or self-care (01) ==
LOC: EC 10:20
DX: J06.9 Acute upper respiratory infection, unspecified (principal); F17.200 Nicotine dependence, unspecified, uncomplicated; F12.90 Cannabis use, unspecified, uncomplicated; Z20.822 Contact with and (suspected) exposure to COVID-19
CPT/HCPCS: 87636; 99283

== ENCOUNTER 2023-02-23 12:57 | Emergency (ER) | payer OTHER ==
[2023-02-23 13:05] VITALS: RESP 18
[2023-02-23] MEDS ORDERED: KETOROLAC 15 MG/ML 1 ML VIAL IM STA (15:25)
[2023-02-23] MEDS ORDERED: LIDOCAINE 5% PATCH TOPICAL SCH (15:30)
--- NOTE | 2023-02-23 16:07 | XR ---
EXAMINATION TYPE: XR lumbar spine 2 or 3V DATE OF EXAM: 02/23/2023 Comparison: 04/14/2020 Clinical History: 47-year-old male low back pain Findings: 5 lumbar type vertebral bodies. Facet arthropathy lower lumbar spine. Vertebral body heights are pres erved. Trace grade 1 retrolisthesis L2-L3, similar to prior. Mild degenerative disc disease visualize d lower thoracic spine. Impression: Facet arthropathy lower lumbar spine. Trace grade 1 retrolisthesis at L2-L3. Mild degenerative disc d isease lower thoracic spine. No vertebral compression collapse.
--- NOTE | 2023-02-23 16:09 | XR ---
EXAMINATION TYPE: XR chest 2V DATE OF EXAM: 02/23/2023 COMPARISON: 05/30/2020 HISTORY: 47-year-old male with cough and increased shortness of breath TECHNIQUE: PA and lateral views FINDINGS: Heart normal size. Aorta and pulmonary vasculature within normal limits. There is a subtle focal dens ity at the periphery of the right mid lung. In retrospect, it appears to have been faintly present on the 2019 exam as well. Otherwise, no consolidation or pleural effusion. Mild hyperinflation. IMPRESSION: 1. Mild hyperinflation may relate to a depth of inspiration or underlying emphysema. Clinically corre late. 2. Subtle focal density at the right midlung. In retrospect, it appears to have been faintly present back on the 2019 exam. Possible scarring. Recommend outpatient follow-up CT chest to further evaluate . 3. Otherwise, no acute process seen.
[2023-02-23] MEDS ORDERED: ACET/COD 300 MG/30 MG STARTER PACK 6 TAB BTL PO STA (16:39)
--- NOTE | 2023-02-23 16:39 | ED ---
General Adult HPI - General Chief complaint: Back Pain/Injury Stated complaint: Back pain Time Seen by Provider: 02/23/23 14:49 Source: patient, RN notes reviewed Mode of arrival: wheelchair Limitations: no limitations - History of Present Illness Initial comments: 47-year-old male presents to the emergency department with a chief complaint of low back pain. Patient reports that he has had chronic back pain for years. He reports his back pain worsening over the last 2 days. He denies any recent trauma or injury. He reports that he was scheduled to have a "procedure where they amaya his nerves." He reports that this procedure is not for another month. He denies any fevers, chills, numbness or tingling in the extremities. Denies saddle paresthesia or loss of bowel or bladder function. He has been taking Motrin 800 for his pain. - Related Data Home Medications Medication Instructions Recorded Confirmed Ibuprofen [Motrin] 800 mg PO Q8H PRN 01/19/23 01/19/23 Previous Rx's Medication Instructions Recorded Lidocaine 5% Patch [Lidoderm 5% 1 patch TOPICAL DAILY #7 patch 02/23/23 Patch] Allergies Allergy/AdvReac Type Severity Reaction Status Date / Time No Known Allergies Allergy Verified 02/23/23 13:05 Review of Systems ROS Statement: Those systems with pertinent positive or pertinent negative responses have been documented in the HPI. ROS Other: All systems not noted in ROS Statement are negative. Past Medical History Past Medical History: No Reported History Additional Past Medical History / Comment(s): sciatic nerve problem. back injury. CHRONIC CONSTIPATION History of Any Multi-Drug Resistant Organisms: None Reported Past Surgical History: Appendectomy Additional Past Anesthesia/Blood Transfusion Reaction / Comment(s): NO PRIOR SURGICAL PROCEDURES Past Psychological History: ADD/ADHD, PTSD Smoking Status: Current every day smoker Past Alcohol Use History: Rare Past Drug Use History: Marijuana - Past Family History Mother Family Medical History: No Reported History General Exam - General Exam Comments Initial Comments: General: Alert, in no acute distress Head: atraumatic normocephalic. Eyes PERRL, EOMI intact, mucous membranes moist Respiratory: Lungs clear to auscultation bilaterally Cardiovascular: Heart rate regular rate and rhythm Abdominal: Soft without guarding or rebound Extremities: Normal inspection with full range of motion and normal capillary refill Neuroogic: alert and oriented 3, CN II-XII intact, able to ambulate with steady gait Skin: warm dry and intact with normal color Limitations: no limitations Course Vital Signs 02/23/23 02/23/23 13:02 16:53 Temperature 98.3 F 98.1 F Pulse Rate 79 78 Respiratory 18 18 Rate Blood Pressure 121/89 129/87 O2 Sat by Pulse 98 100 Oximetry - Reevaluation(s) Reevaluation #1: 02/23/23 16:38 Patient reevaluated. Patient reports symptomatically status post Toradol and Lidoderm patch placement. Medical Decision Making - Medical Decision Making Was pt. sent in by a medical professional or institution (, JOSE, ORTHOPEDIC PHYSICAL THERAPIST, urgent care, hospital, or long-term...) When possible be specific @ -[No] Did you speak to anyone other than the patient for history (EMS, parent, family, police, friend...)? What history was obtained from this source @ -[No] Did you review nursing and triage notes (agree or disagree)? Why? @ -[I reviewed and agree with nursing and triage notes] Were old charts reviewed (outside hosp., previous admission, EMS record, old EKG, old radiological studies, urgent care reports/EKG's, long-term records)? Report findings @ -[No old charts were reviewed] Differential Diagnosis (chest pain, altered mental status, abdominal pain women, abdominal pain men, vaginal bleeding, weakness, fever, dyspnea, syncope, headache, dizziness, GI bleed, back pain, seizure, CVA, palpatations, mental health, musculoskeletal)? @ -[not applicable] EKG interpreted by me (3pts min.). @ -[As above] X-rays interpreted by me (1pt min.). @ -XR negative for acute fracture or dislocation CT interpreted by me (1pt min.). @ -[None done] U/S interpreted by me (1pt. min.). @ -[None done] What testing was considered but not performed or refused? (CT, X-rays, U/S, labs)? Why? @ -[None] What meds were considered but not given or refused? Why? @ -[None] Did you discuss the management of the patient with other professionals (professionals i.e. , JOSE, ORTHOPEDIC PHYSICAL THERAPIST, lab, RT, psych nurse, social worker palliative care, prototyper, teacher, security control room officer, medical case worker)? Give summary @ -[No] Was smoking cessation discussed for >3mins.? @ -[No] Was critical care preformed (if so, how long)? @ -[No] Were there social determinants of health that impacted care today? How? (Homelessness, low income, unemployed, alcoholism, drug addiction, transportation, low edu. Level, literacy, decrease access to med. care, group home, rehab)? @ -[No] Was there de-escalation of care discussed even if they declined (Discuss DNR or withdrawal of care, Hospice)? DNR status @ -[No] What co-morbidities impacted this encounter? (DM, HTN, Smoking, COPD, CAD, Cancer, CVA, ARF, Chemo, Hep., AIDS, mental health diagnosis, sleep apnea, morbid obesity)? @ -[None] Was patient admitted / discharged? Hospital course, mention meds given and route, prescriptions, significant lab abnormalities, going to OR and other pertinent info. @ -Discharged. This is a 47-year-old male who presents to the emergency department with back pain. Patient had a thorough history and physical exam performed on the ED. Physical exam is essentially unremarkable. Heart rate regular rate and rhythm, lungs are to auscultation bilaterally, abdomen soft and nontender. Patient able to ambulate with a steady gait. No focal neuro deficits noted. Patient imaging performed which was negative. I discussed the results in detail with the patient verbalized understanding and all questions were addressed. Patient was given Toradol and Lidoderm for symptomatic relief on the ED. Return precautions were discussed at length. Patient discharged in stable condition. Case discussed with RANDI Chambers who agrees with plan of care Undiagnosed new problem with uncertain prognosis? @ -[No] Drug Therapy requiring intensive monitoring for toxicity (Heparin, Nitro, Insulin, Cardizem)? @ -[No] Were any procedures done? @ -[No] Diagnosis/symptom? @ -Back Pain Acute, or Chronic, or Acute on Chronic? @ -Acute Uncomplicated (without systemic symptoms) or Complicated (systemic symptoms)? @ -Uncomplicated Side effects of treatment? @ -[No] Exacerbation, Progression, or Severe Exacerbation? @ -[No] Poses a threat to life or bodily function? How? (Chest pain, [place], [place], pneumonia, PE, COPD, DKA, ARF, appy, cholecystitis, CVA, Diverticulitis, Homicidal, Suicidal, threat to staff... and all critical care pts) @ -Low likelihood Disposition Clinical Impression: Mechanical back pain, Sciatica Disposition: HOME SELF-CARE Condition: Stable Instructions (If sedation given, give patient instructions): Acute Low Back Pain (ED) Additional Instructions: Please return to the nearest emergency department if symptoms worsen or persist Prescriptions: Lidocaine 5% Patch [Lidoderm 5% Patch] 1 patch TOPICAL DAILY #7 patch Is patient prescribed a controlled substance at d/c from ED?: No Referrals: Shena Saeed MD [Primary Care Provider] - 1-2 days Time of Disposition: 16:39
[2023-02-23 16:54] VITALS: BP 129/87; PULSE 78; TEMP 98.1
== END 2023-02-23 17:06 | disposition home or self-care (01) ==
LOC: EC 12:57
DX: M54.40 Lumbago with sciatica, unspecified side (principal); F90.9 Attention-deficit hyperactivity disorder, unspecified type; F17.200 Nicotine dependence, unspecified, uncomplicated; F12.90 Cannabis use, unspecified, uncomplicated; Z79.899 Other long term (current) drug therapy
CPT/HCPCS: 72100; 71046; 99284; 96372; J1885

== ENCOUNTER → 2023-03-08 | Outpatient (CLI) | payer OTHER ==
--- NOTE | 2023-03-08 07:46 | US ---
EXAMINATION TYPE: US abdomen complete DATE OF EXAM: 03/08/2023 COMPARISON: CLINICAL INDICATION: Male, 47 years old with history of B18.2 CHRONIC VIRAL HEPATITIS C; No pain. Hx liver biopsy. TECHNIQUE: Multiple sonographic images of the abdomen are obtained. FINDINGS: EXAM MEASUREMENTS: Liver Length: 15.2 cm Gallbladder Wall: 0.2 cm CBD: 0.4 cm Spleen: 11.4 cm Right Kidney: 10.5 x 6.0 x 5.0 cm Left Kidney: 9.9 x 5.0 x 4.4 cm Pancreas: Echogenic in appearance Liver: No prominent or focal lesions identified at time of scan Gallbladder: wnl Evidence for sonographic Okeefe's sign: neg CBD: wnl Spleen: wnl Right Kidney: No hydronephrosis or masses seen Left Kidney: No hydronephrosis or masses seen Upper IVC: wnl Abd Aorta: No AAA visualized at time of scan The liver is homogenous. The intrahepatic portion of the IVC and proximal abdominal aorta are within normal limits. There is no evidence of cholelithiasis. Common bile duct is unremarkable. The visu alized portions of the pancreas are homogenous. The spleen is unremarkable. Kidneys are symmetric a nd free of hydronephrosis. No renal lesions are seen. IMPRESSION: No discrete abnormality appreciated.
== END | disposition home or self-care (01) ==
LOC: RADUSWWP 06:56
PROVIDERS: ATTEND Family Medicine
DX: B18.2 Chronic viral hepatitis C (principal)
CPT/HCPCS: 76700

== ENCOUNTER → 2023-06-25 | Outpatient (CLI) | payer OTHER ==
[2023-06-25 15:09] LABS: Basophils # (A) 0.08 X 10*3/uL (0.00-0.10); Basophils % (A) 1.1 %; Eosinophils # (A) 0.11 X 10*3/uL (0.04-0.35); Eosinophils % (A) 1.5 %; HCT 46.9 % (39.6-50.0); HGB 16.3 d/dL (13.0-17.0); MCH 35.4 pg (27.0-32.0); MCHC 34.8 d/dL (32.0-37.0); Mean Platelet Volume 12.3 FL (9.5-12.2); Monocytes # (A) 0.75 X 10*3/uL (0.20-1.00); Monocytes % (A) 9.9 %; NRBC Per 100 WBC 0 X 10*3/uL (0.00-0.01); Neutrophils # (A) 4.38 X 10*3/uL (1.80-7.70); Neutrophils % (A) 57.7 %; Platelet Count 140 X 10*3/uL (140-440); RDW 12.5 % (11.5-14.5); WBC 7.58 X 10*3/uL (4.50-10.00)
[2023-06-25 16:38] LABS: Hepatitis B Core IgM Nonreactive
[2023-06-25 16:39] LABS: ALT 113 U/L (10-49); AST 77 U/L (14-35); Albumin 3.7 d/dL (3.8-4.9); Albumin/Globulin Ratio 1.37 Ratio (1.60-3.17); Alkaline Phosphatase 145 U/L (41-126); BUN/Creat Ratio 13.89 Ratio (12.00-20.00); Blood Urea Nitrogen 12.5 mg/dL (9.0-27.0); Calcium 8.9 mg/dL (8.7-10.3); Carbon Dioxide 22.4 mmol/L (21.6-31.8); Chloride 106 mmol/L (96-109); Globulin 2.7 d/dL (1.6-3.3); Glucose 89 mg/dL (70-110); Potassium 4.2 mmol/L (3.5-5.5); Sodium 140 mmol/L (135-145); Total Bilirubin 0.6 mg/dL (0.3-1.2); Total Protein 6.4 d/dL (6.2-8.2)
== END | disposition home or self-care (01) ==
LOC: LABWHC1 10:42
PROVIDERS: ATTEND Internal Medicine Gastroenterology
DX: B18.2 Chronic viral hepatitis C (principal)
CPT/HCPCS: 36415; 80053; 82105; 85025; 86704; 86705; 87522

== ENCOUNTER → 2023-07-04 | Outpatient (CLI) | payer OTHER ==
--- NOTE | 2023-07-06 18:52 | MR ---
EXAMINATION TYPE: MR liver wo/w con DATE OF EXAM: 07/04/2023 7:28 AM CLINICAL INDICATION:Male, 48 years old with history of R77.2 ABNORMALITY OF ALPHA-FETOPROTEIN; PHH, A bnormal alpha fetoprotein COMPARISON: Abdomen ultrasound 03/08/2023 TECHNIQUE: Multiplanar multi-sequence imaging was performed without contrast. Post contrast imaging was performed. IV Contrast: 8 cc Gadavist FINDINGS: LOWER CHEST: No gross irregularity. ABDOMEN Liver: No evidence of hepatic steatosis. There is nodular contour to liver suggestive of cirrhosis.. No observation that needs HCC criteria. No cystic masses or dilated ducts. Tiny subcentimeter nonenha ncing cyst near the dome of the liver measuring 5 mm. Gallbladder and Bile ducts: No evidence for ductal dilation, or biliary stricture or evidence of chol edocholithiasis. The gallbladder is within normal limits. Pancreas: No ductal dilation. No evidence for solid mass. Spleen: Normal for size. Adrenal glands: Unremarkable. Kidneys: No evidence for obstructive uropathy. No suspicious renal masses. Stomach and Bowel: No evidence for bowel wall thickening or evidence for obstruction.. Peritoneum: No evidence of pneumoperitoneum or free fluid. Vasculature: No aortic aneurysm. Musculoskeletal: The osseous structures appear intact. Lymph Nodes: No gross evidence for lymphadenopathy. Abdominal wall: Unremarkable. IMPRESSION: Hepatic cirrhosis without observation that needs HCC criteria. No suspicious lesions or masses in the abdomen.
== END | disposition home or self-care (01) ==
LOC: RADMRIMAIN 05:53
PROVIDERS: ATTEND Internal Medicine Gastroenterology
DX: K74.60 Unspecified cirrhosis of liver (principal); R77.2 Abnormality of alphafetoprotein
CPT/HCPCS: 74183

== ENCOUNTER 2023-10-31 13:38 | Emergency (ER) | payer OTHER ==
--- NOTE | 2023-10-31 13:44 | ED ---
ENT HPI - General Stated complaint: pain in jaw Time Seen by Provider: 10/31/23 13:43 - History of Present Illness Initial comments: (48-year-old gentleman who presents emergency room with complaints of pain to the left ear and anterior preauricular region with no injuries. Patient denies any sinus congestion cough congestion and dental pain nausea vomiting or fever. He denies a chest pain or shortness breath. The pain is worse with palpation and movement in this area. denies rash or hx of tirgeminal neuralgia.patient does have some popping and clicking in the left TMJ area. The pain is now spreading towards his eye. he dnies any recent flu like symptoms or hx of shingles. - Related Data Home Medications Medication Instructions Recorded Confirmed Ibuprofen [Motrin] 800 mg PO Q8H PRN 01/19/23 01/19/23 Previous Rx's Medication Instructions Recorded Lidocaine 5% Patch [Lidoderm 5% 1 patch TOPICAL DAILY #7 patch 02/23/23 Patch] carBAMazepine [Carbatrol] 100 mg PO Q12HR 14 Days #28 cap 10/31/23 oxyCODONE HCL [Oxaydo] 1.5 tablet PO Q6H PRN 3 Days #18 10/31/23 tab Allergies Allergy/AdvReac Type Severity Reaction Status Date / Time No Known Allergies Allergy Verified 10/31/23 14:00 Review of Systems ROS Statement: Those systems with pertinent positive or pertinent negative responses have been documented in the HPI. ROS Other: All systems not noted in ROS Statement are negative. Past Medical History Past Medical History: No Reported History Additional Past Medical History / Comment(s): sciatic nerve problem. back injury. CHRONIC CONSTIPATION History of Any Multi-Drug Resistant Organisms: None Reported Past Surgical History: Appendectomy Additional Past Anesthesia/Blood Transfusion Reaction / Comment(s): NO PRIOR SURGICAL PROCEDURES Past Psychological History: ADD/ADHD, PTSD Smoking Status: Current every day smoker Past Alcohol Use History: Rare Past Drug Use History: Marijuana - Past Family History Mother Family Medical History: No Reported History General Exam - General Exam Comments Initial Comments: Visual Physical Exam Vital signs reviewed General: Well-appearing, nontoxic, no acute distress. Head: Normocephalic, atraumatic Eyes: PERRLA, EOMI ENT: Airway patent Chest: Nonlabored breathing Skin: No visual rash, normal skin tone Neuro: Alert and oriented 3 Musculoskeletal: No gross abnormalities Limitations: no limitations General appearance: alert, in no apparent distress Head exam: Present: atraumatic, normocephalic Eye exam: Present: normal appearance, PERRL, EOMI Pupils: Present: normal accommodation ENT exam: Present: normal exam, normal oropharynx, mucous membranes dry, mucous membranes moist, normal external ear exam, other (no dental swelling or signs of abscess. no rash consistent with shingles, no erythema of the middle ear. clicking of L TMJ with ROM of the mandible) Neck exam: Present: full ROM. Absent: lymphadenopathy, thyromegaly Respiratory exam: Present: normal lung sounds bilaterally Cardiovascular Exam: Present: regular rate Neurological exam: Present: alert, oriented X3, CN II-XII intact Psychiatric exam: Present: normal affect, normal mood Skin exam: Present: warm, dry. Absent: rash Course Vital Signs 10/31/23 10/31/23 13:58 16:33 Temperature 98 F 99.2 F Pulse Rate 72 65 Respiratory 18 20 Rate Blood Pressure 112/67 140/90 O2 Sat by Pulse 98 98 Oximetry - Reevaluation(s) Reevaluation #1: 10/31/23 1610 Patient is well appearing in the emergency room. There is no signs of the otitis externa or otitis media. There is a clicking with the opening and closing of the mandible with pain over the left TMJ. Patient has pain towards the eye now without any excessive tearing or dizziness or blurred vision. No sensitivity to light. There is no rash or signs of shingles at this time. No pain over the maxillary sinuses no history of recent flulike symptoms. I will cover for suspected trigeminal neuralgia and TMJ with pain medicine and Tegretol. I discussed the importance of following up with the PCP or neurologist studies are needed. A prescription for reevaluation possible increase in this medication for more persistent relief and control. Patient understands and agrees to treatment discharge plan. He understands signs to return to the emergency room. Medical Decision Making - Medical Decision Making Quick note portion completed by myself, Teresa DWYER. Was pt. sent in by a medical professional or institution (, PA, WATCH CASE POLISHER, urgent care, hospital, or retirement...) When possible be specific @ -[No] Did you speak to anyone other than the patient for history (EMS, parent, family, police, friend...)? What history was obtained from this source @ -Significant other Did you review nursing and triage notes (agree or disagree)? Why? @ -[I reviewed and agree with nursing and triage notes] Were old charts reviewed (outside hosp., previous admission, EMS record, old EKG, old radiological studies, urgent care reports/EKG's, retirement records)? Report findings @ -Yes old charts were reviewed Differential Diagnosis (chest pain, altered mental status, abdominal pain women, abdominal pain men, vaginal bleeding, weakness, fever, dyspnea, syncope, headache, dizziness, GI bleed, back pain, seizure, CVA, palpatations, mental health, musculoskeletal)? @ -Otitis externa, teacher generally normal neuralgia, TMJ, dental abscess, dental pain, otalgia, herpes zoster EKG interpreted by me (3pts min.). @ -[As above] X-rays interpreted by me (1pt min.). @ -[None done] CT interpreted by me (1pt min.). @ -[None done] U/S interpreted by me (1pt. min.). @ -[None done] What testing was considered but not performed or refused? (CT, X-rays, U/S, labs)? Why? @ -[None] What meds were considered but not given or refused? Why? @ -[None] Did you discuss the management of the patient with other professionals (professionals i.e. , PA, WATCH CASE POLISHER, lab, RT, psych nurse, social media intern, recreational facilities motel manager, teacher, neighborhood conservation officer, upper caser)? Give summary @ -[Discussed management of patient's symptoms with attending ED physician Dr. Menon] Was smoking cessation discussed for >3mins.? @ -[No] Was critical care preformed (if so, how long)? @ -[No] Were there social determinants of health that impacted care today? How? (Homelessness, low income, unemployed, alcoholism, drug addiction, transportation, low edu. Level, literacy, decrease access to med. care, [facility], rehab)? @ -[No] Was there de-escalation of care discussed even if they declined (Discuss DNR or withdrawal of care, Hospice)? DNR status @ -[No] What co-morbidities impacted this encounter? (DM, HTN, Smoking, COPD, CAD, Cancer, CVA, ARF, Chemo, Hep., AIDS, mental health diagnosis, sleep apnea, morbid obesity)? @ -[None] Was patient admitted / discharged? Hospital course, mention meds given and route, prescriptions, significant lab abnormalities, going to OR and other pertinent info. @ -[Patient is well-appearing and emergency room. Vital signs are stable. Patient's symptoms consistent with trigeminal neuralgia versus TMJ. We'll cover for both. I reiterated the importance of following up with the neurologist. The CBC or the PCP for follow-up that evaluation and further medical management including adjustment the Tegretol. I discussed signs return to the emergency room with the patient and significant other at the bedside. new problem with uncertain prognosis? @ -[No] Drug Therapy requiring intensive monitoring for toxicity (Heparin, Nitro, Insulin, Cardizem)? @ -[No] Were any procedures done? @ -[No] Diagnosis/symptom? @ -[ left facial pain, trigeminal neuralgia versus TMJ syndrome Acute, or Chronic, or Acute on Chronic? @ -[ acute Uncomplicated (without systemic symptoms) or Complicated (systemic symptoms)? @ -[default] Side effects of treatment? @ -[No] Exacerbation, Progression, or Severe Exacerbation? @ -[No] Poses a threat to life or bodily function? How? (Chest pain, [place], [place], pneumonia, PE, COPD, DKA, ARF, appy, cholecystitis, CVA, Diverticulitis, Homicidal, Suicidal, threat to staff... and all critical care pts) @ -[No] Disposition Clinical Impression: Facial pain, Trigeminal neuralgia of left side of face, TMJ arthralgia Disposition: HOME SELF-CARE Condition: Good Instructions (If sedation given, give patient instructions): Trigeminal Neuralgia (ED), Temporomandibular Disorder (ED) Additional Instructions: DO NOT WORK OR DRIVE WHILE TAKING PAIN MEDICATION Prescriptions: carBAMazepine [Carbatrol] 100 mg PO Q12HR 14 Days #28 cap oxyCODONE HCL [Oxaydo] 1.5 tablet PO Q6H PRN 3 Days #18 tab PRN Reason: Pain Is patient prescribed a controlled substance at d/c from ED?: Yes When asked, does pt state using other controlled substances?: No If prescribed controlled substance>3 days was MAPS reviewed?: Prescribed <3 Days If opioid is for acute pain is fill amount 7 days or less?: No If Rx opioid, was Start Talking consent form obtained?: No Referrals: None,Stated [Primary Care Provider] - 1-2 days Time of Disposition: 16:24
[2023-10-31] MEDS: KETOROLAC 15 MG/ML 1 ML VIAL IM STA (15:40)
[2023-10-31 17:01] VITALS: BP 140/90; PULSE 65; RESP 20; TEMP 99.2
== END 2023-10-31 16:34 | disposition home or self-care (01) ==
LOC: EC 13:38
DX: G50.0 Trigeminal neuralgia (principal); M26.622 Arthralgia of left temporomandibular joint; F12.90 Cannabis use, unspecified, uncomplicated; F17.200 Nicotine dependence, unspecified, uncomplicated
CPT/HCPCS: 99283

== ENCOUNTER → 2024-06-04 | Outpatient (CLI) | payer OTHER ==
[2024-06-04 15:25] LABS: ALT 20 U/L (10-49); AST 27 U/L (14-35); Albumin 4.4 g/dL (3.8-4.9); Albumin/Globulin Ratio 1.69 Ratio (1.60-3.17); Alkaline Phosphatase 92 U/L (41-126); BUN/Creat Ratio 12.64 Ratio (12.00-20.00); Blood Urea Nitrogen 13.9 mg/dL (9.0-27.0); Calcium 9.2 mg/dL (8.7-10.3); Carbon Dioxide 24.7 mmol/L (21.6-31.8); Chloride 103 mmol/L (96-109); Globulin 2.6 g/dL (1.6-3.3); Glucose 104 mg/dL (70-110); Potassium 3.9 mmol/L (3.5-5.5); Sodium 139 mmol/L (135-145); Total Bilirubin 0.2 mg/dL (0.3-1.2)
[2024-06-04 15:30] LABS: Basophils # (A) 0.05 X 10*3/uL (0.00-0.10); Basophils % (A) 0.8 %; Eosinophils % (A) 1.5 %; Lymphocytes # (A) 3.15 X 10*3/uL (0.90-5.00); Lymphocytes % (A) 48.4 %; MCH 33.9 pg (27.0-32.0); MCHC 34.1 g/dL (32.0-37.0); MCV 99.3 FL (80.0-97.0); Mean Platelet Volume 12.3 FL (9.5-12.2); Monocytes % (A) 10.8 %; NRBC Per 100 WBC 0 X 10*3/uL (0.00-0.01); Neutrophils # (A) 2.49 X 10*3/uL (1.80-7.70); Neutrophils % (A) 38.2 %; Platelet Count 165 X 10*3/uL (140-440); RBC 4.43 X 10*6/uL (4.40-5.60); RDW 11.9 % (11.5-14.5); WBC 6.51 X 10*3/uL (4.50-10.00)
== END | disposition home or self-care (01) ==
LOC: LABWHC1 08:32
PROVIDERS: ATTEND Nurse Practitioner Family
DX: K74.60 Unspecified cirrhosis of liver
CPT/HCPCS: 36415; 80053; 82105; 85025; 87522

== ENCOUNTER → 2024-06-05 | Outpatient (CLI) | payer OTHER ==
--- NOTE | 2024-06-05 19:30 | US ---
EXAMINATION TYPE: US liver DATE OF EXAM: 06/05/2024 COMPARISON: NONE CLINICAL INDICATION: Male, 49 years old with history of K74.60 CIRRHOSIS OF LIVER; liver function onl y 50%, fatigue TECHNIQUE: Multiple sonographic images of the right upper quadrant are obtained. FINDINGS: EXAM MEASUREMENTS: Liver Length: 17.5 cm. Normal less than 15.5 cm. Gallbladder Wall: 0.2 cm CBD: 0.6 cm Right Kidney: 9.6 x 4.9 x 4.9 cm Pancreas: wnl Liver: intercostal imaging due to gas, mild fatty infiltration. Gallbladder: wnl Evidence for sonographic Okeefe's sign: no CBD: wnl Right Kidney: wnl IMPRESSION: 1. Hepatomegaly with mild fatty infiltration of liver. [facility], , 06/05/2024 7:27 PM
== END | disposition home or self-care (01) ==
LOC: RADUSWWP 07:55
PROVIDERS: ATTEND Internal Medicine Gastroenterology
DX: K74.60 Unspecified cirrhosis of liver
CPT/HCPCS: 76705

== ENCOUNTER 2024-11-09 11:38 | Emergency (ER) | payer OTHER ==
[2024-11-09 11:49] VITALS: RESP 20
--- NOTE | 2024-11-09 12:26 | XR ---
EXAMINATION TYPE: XR chest 2V DATE OF EXAM: 11/09/2024 12:19 PM COMPARISON: 02/23/2023 CLINICAL INDICATION: Male, 49 years old with history of sob cough fever, TECHNIQUE: XR chest 2V view(s) obtained. FINDINGS: The heart size is normal. The pulmonary vasculature is normal. The lungs are clear. IMPRESSION: 1. No acute pulmonary process. [facility], , 11/09/2024 12:23 PM
[2024-11-09 12:37] LABS: Influenza A Detected (Not Detectd); Influenza B Not Detected (Not Detectd); RSV Not Detected (Not Detectd)
--- NOTE | 2024-11-09 13:40 | ED ---
URI HPI - General Chief Complaint: Upper Respiratory Infection Stated Complaint: body ache, hot/cold sweats, diarrhea Time Seen by Provider: 11/09/24 13:39 Source: patient, RN notes reviewed Mode of arrival: ambulatory Limitations: no limitations - History of Present Illness Initial Comments: Patient is a 49-year-old male presented to the ER for evaluation of myalgias and sore throat. Patient states since 11-07-2024 he has felt unwell. He endorses myalgias, sore throat, and mild cough. He reports low-grade fevers at home. He has not taken anything for symptoms at at this time. Patient is an everyday smoker. Patient denies any chest pain, shortness of breath, dizziness, lightheadedness, abdominal pain or other complaints at this time. - Related Data Home Medications Medication Instructions Recorded Confirmed Ibuprofen [Motrin] 800 mg PO Q8H PRN 01/19/23 01/19/23 Previous Rx's Medication Instructions Recorded Lidocaine 5% Patch [Lidoderm 5% 1 patch TOPICAL DAILY #7 patch 02/23/23 Patch] carBAMazepine [Carbatrol] 100 mg PO Q12HR 14 Days #28 cap 10/31/23 oxyCODONE HCL [Oxaydo] 1.5 tablet PO Q6H PRN 3 Days #18 10/31/23 tab Cyclobenzaprine [Flexeril] 10 mg PO TID PRN #15 tab 11/05/24 predniSONE 50 mg PO DAILY #5 tab 11/05/24 Allergies Allergy/AdvReac Type Severity Reaction Status Date / Time No Known Allergies Allergy Verified 11/05/24 14:16 Review of Systems ROS Statement: Those systems with pertinent positive or pertinent negative responses have been documented in the HPI. ROS Other: All systems not noted in ROS Statement are negative. Past Medical History Past Medical History: No Reported History Additional Past Medical History / Comment(s): sciatic nerve problem. back injury. CHRONIC CONSTIPATION History of Any Multi-Drug Resistant Organisms: None Reported Past Surgical History: Appendectomy Additional Past Anesthesia/Blood Transfusion Reaction / Comment(s): NO PRIOR SURGICAL PROCEDURES Past Psychological History: ADD/ADHD, PTSD Smoking Status: Current every day smoker Past Alcohol Use History: Rare Past Drug Use History: Marijuana - Past Family History Mother Family Medical History: No Reported History General Exam Limitations: no limitations General appearance: alert, in no apparent distress ENT exam: Present: normal exam, normal oropharynx, mucous membranes moist, TM's normal bilaterally Neck exam: Present: normal inspection. Absent: tenderness, meningismus, lymphadenopathy Respiratory exam: Present: normal lung sounds bilaterally. Absent: respiratory distress, wheezes, rales, rhonchi, stridor Cardiovascular Exam: Present: regular rate, normal rhythm, normal heart sounds. Absent: systolic murmur, diastolic murmur, rubs, gallop, clicks GI/Abdominal exam: Present: soft, normal bowel sounds. Absent: distended, tenderness, guarding, rebound, rigid Neurological exam: Present: alert, oriented X3, CN II-XII intact Skin exam: Present: warm, dry, intact, normal color. Absent: rash Course Vital Signs 11/09/24 11/09/24 11:46 13:56 Temperature 98.9 F 98.1 F Pulse Rate 77 80 Respiratory 20 20 Rate Blood Pressure 127/83 126/82 O2 Sat by Pulse 98 99 Oximetry Medical Decision Making - Medical Decision Making Was pt. sent in by a medical professional or institution (, PA, [employer], urgent care, hospital, or group home...) When possible be specific @ -No Did you speak to anyone other than the patient for history (EMS, parent, family, police, friend...)? What history was obtained from this source @ -No Did you review nursing and triage notes (agree or disagree)? Why? @ -I reviewed and agree with nursing and triage notes Were old charts reviewed (outside hosp., previous admission, EMS record, old EKG, old radiological studies, urgent care reports/EKG's, group home records)? Report findings @ -No old charts were reviewed Differential Diagnosis (chest pain, altered mental status, abdominal pain women, abdominal pain men, vaginal bleeding, weakness, fever, dyspnea, syncope, headache, dizziness, GI bleed, back pain, seizure, CVA, palpatations, mental health, musculoskeletal)? @ -COVID, RSV, influenza, viral sinusitis, pneumonia, strep pharyngitis, this list is not meant to be all-inclusive EKG interpreted by me (3pts min.). @ -None done X-rays interpreted by me (1pt min.). @ -CXR interpreted by me negative for focal consolidations, pneumothorax or pleural effusions. CT interpreted by me (1pt min.). @ -None done U/S interpreted by me (1pt. min.). @ -None done What testing was considered but not performed or refused? (CT, X-rays, U/S, labs)? Why? @ -None What meds were considered but not given or refused? Why? @ -Tamiflu considered but not prescribed as patient is outside 48 hours symptom onset window. Did you discuss the management of the patient with other professionals (professionals i.e. , PA, [employer], lab, RT, psych nurse, manager social services, road test examiner, teacher, soil science technical officer, employment evaluator/case manager)? Give summary @ -No Was smoking cessation discussed for >3mins.? @ -I discussed smoking cessation for greater than 3 minutes. The risk of smoking were discussed with the patient including but not limited to risks of cancer, stroke, coronary artery disease and COPD. Also discussed with patient were multiple methods of quitting smoking. Lastly we discussed the financial cost of smoking. Was critical care preformed (if so, how long)? @ -No Were there social determinants of health that impacted care today? How? (Homelessness, low income, unemployed, alcoholism, drug addiction, reis sportation, low edu. Level, literacy, decrease access to med. care, senior care, rehab)? @ -No Was there de-escalation of care discussed even if they declined (Discuss DNR or withdrawal of care, Hospice)? DNR status @ -No What co-morbidities impacted this encounter? (DM, HTN, Smoking, COPD, CAD, Cancer, CVA, ARF, Chemo, Hep., AIDS, mental health diagnosis, sleep apnea, morbid obesity)? @ -Smoker Was patient admitted / discharged? Hospital course, mention meds given and route, prescriptions, significant lab abnormalities, going to OR and other pertinent info. @ -[Discharge. 49-year-old male presented the ER for evaluation of myalgias and mild cough. Upon rooming, history and physical exam completed. Vitals within acceptable limits. Patient had no signs of acute distress nontoxic-appearing. Workup significant for influenza A. Chest x-ray negative. Patient given ibuprofen and Tylenol for symptom control in the ER. Patient is stable for discharge. Advised [id number] ibuprofen and Tylenol for outpatient symptom control. Patient is outside 48-hour window for Tamiflu. Strict return parameters discussed. Patient discharged stable condition with follow-up to PCP. Patient verbally expressed understanding agree with care plan. Case discussed with ED attending, Dr. Menon. Undiagnosed new problem with uncertain prognosis? @ -No Drug Therapy requiring intensive monitoring for toxicity (Heparin, Nitro, Insulin, Cardizem)? @ -No Were any procedures done? @ -No Diagnosis/symptom? @ -Influenza A/acute viral sinusitis Acute, or Chronic, or Acute on Chronic? @ -Acute Uncomplicated (without systemic symptoms) or Complicated (systemic symptoms)? @ -Uncomplicated Side effects of treatment? @ -No Exacerbation, Progression, or Severe Exacerbation? @ -No Poses a threat to life or bodily function? How? (Chest pain, USA, VT, pneumonia, PE, COPD, DKA, ARF, appy, cholecystitis, CVA, Diverticulitis, Homicidal, Suicidal, threat to staff... and all critical care pts) @ -No - Lab Data Lab Results 11/09/24 Range/Units 11:51 Influenza Type A (PCR) Detected A (Not Detectd) Influenza Type B (PCR) Not Detected (Not Detectd) RSV (PCR) Not Detected (Not Detectd) SARS-CoV-2 (PCR) Not Detected (Not Detectd) - Radiology Data Radiology results: report reviewed, image reviewed Disposition Clinical Impression: Influenza A, Acute viral sinusitis Disposition: HOME SELF-CARE Condition: Stable Instructions (If sedation given, give patient instructions): Fever in Adults (ED), Influenza (ED) Additional Instructions: Alternate [id number] ibuprofen and Tylenol for fever control outpatient. Follow-up with PCP. Return to the ER for any new or worsening concerns. Is patient prescribed a controlled substance at d/c from ED?: No Referrals: Sreekanth Velez MD [Primary Care Provider] - 1-2 days Time of Disposition: 13:40
[2024-11-09] MEDS: ACETAMINOPHEN TAB 325 MG TAB PO STA (13:48)
[2024-11-09] MEDS: IBUPROFEN 600 MG TAB PO STA (13:49)
[2024-11-09 13:57] VITALS: BP 126/82; PULSE 80; TEMP 98.1
== END 2024-11-09 13:57 | disposition home or self-care (01) ==
LOC: EC 11:38
DX: J10.1 Influenza due to other identified influenza virus with other respiratory manifestations (principal); J01.90 Acute sinusitis, unspecified; F17.200 Nicotine dependence, unspecified, uncomplicated
CPT/HCPCS: 71046; 87636; 99284

== ENCOUNTER → 2024-12-24 | Outpatient (CLI) | payer OTHER ==
--- NOTE | 2024-12-24 09:51 | US ---
EXAMINATION TYPE: US liver DATE OF EXAM: 12/24/2024 COMPARISON: Multiple, most recent 06/05/2024 CLINICAL INDICATION: Male, 49 years old with history of K74.60 CIRRHOSIS OF LIVER; Patient denies any signs, symptoms, or relevant history TECHNIQUE: Grayscale and color Doppler imaging of the right upper quadrant was performed. FINDINGS: EXAM MEASUREMENTS: Liver Length: 16.3 Gallbladder Wall: 0.3m CBD: 0.4 cm Right Kidney: 9.6 x 4.6 x 5.0 FLIGHT KITCHEN MANAGER NOTES: Pancreas: wnl Liver: Increased attenuation Gallbladder: wnl Evidence for sonographic Okeefe's sign: No CBD: wnl Right Kidney: wnl Persistent heterogeneous hyperechoic appearance of the liver. This limits evaluation for focal masses . Liver remains normal in size. No ascites is seen. IMPRESSION: Underlying hepatocellular disease is redemonstrated. No ascites or biliary dilatation. [facility] Ignacio Morocho, , 12/24/2024 9:49 AM
== END | disposition home or self-care (01) ==
LOC: RADUSWWP 08:55
PROVIDERS: ATTEND Internal Medicine Gastroenterology
DX: K74.60 Unspecified cirrhosis of liver (principal); K76.89 Other specified diseases of liver
CPT/HCPCS: 76705